=== PATIENT | female | born 1980 | race African-American/Black ===

== ENCOUNTER 2016-07-13 17:49 | Emergency (ER) | payer MEDICARE ==
[2016-02-05 00:27] VITALS: BMI 25.2
[~2016-07-13 17:49] MED LIST: ATIVAN0.5 MG PO; BENADRYL50 MG PO; CARAFATE1 G PO; CARAFATE1 G/10 ML NG; CELEXA20 MG PO; CELLCEPT500 MG PO; DDAVP 0.01% NASA5 ML NASAL; DEPAKOTE ER500 MG PO; DILANTIN100 MG PO; GLUCOPHAGE500 MG PO; HALDOL5 MG PO; HALDOL5 MG/ML IV; HUMALOG 30100 UNITS/ SC; HYDROCODON-ACE1 EAC7 PO; INSULINSYR&NEEDLES SC; IPRAT-ALBUT 0.5-3 ML IH; KEPPRA500 MG PO; LANTUS INSULIN10 ML SC; LOPRESSOR25 MG PO; LOVENOX40 MG/0.4 SC; MEDROL DOSE PACK4 MG PO; MUCINEX DM ER1 EAC1 PO; NORVASC5 MG PO; PERCOCET 10/3251 TA1 PO; PHENYTOIN100 MG/4 M PO; PREDNISONE20 MG PO; PREDNISONE50 MG PO; PROMETHAZINE W473 M1 PO; PROTONIX I40 MG/VIAL IV; PROTONIX40 MG PO; REGLAN5 MG PO; SEROQUEL100 MG PO; SEROQUEL200 MG PO; SEROQUEL50 MG PO; SOLU-MEDRO40 MG/1 M1 IV; SYNTHROID100 MCG PO; XANAX2 MG PO
[2016-07-13 18:49] LABS: BASOPHILS 0.3 % (0.0-2.0); EOSINOPHILS 1.5 % (0-7); HEMATOCRIT 35.4 % (36.0-48.0); HEMOGLOBIN 11.9 g/dL (12-16); IMMATURE GRANULOCYTES 0.1 % (0-5); LYMPHOCYTES 28.2 % (15-50); MCH 31.6 pg (26.0-34.0); MCHC 33.6 g/dL (31.0-37.0); MCV 94.1 fL (80.0-100.0); MEAN PLATELET VOLUME 10.2 fL (7.4-10.4); MONOCYTES 12.6 % (2-11); NEUTROPHILS 57.3 % (40-80); PLATELET COUNT 299 10x3/uL (130-400); RBC 3.76 10x6/uL (4.00-5.40); RDW 13.3 % (11.5-14.5); WBC 6.8 10x3/uL (4.8-10.8)
[2016-07-13 19:07] LABS: ALBUMIN 3.9 g/dL (3.4-5.0); ANION GAP 14.2 mmol/L (8-16); BILIRUBIN - TOTAL 0.37 mg/dL (0.2-1.3); CALCIUM 8.7 mg/dL (8.5-10.1); CARBON DIOXIDE 27.8 mmol/L (21.0-32.0); PROTEIN - SERUM 7.2 g/dL (6.4-8.2)
[2016-07-13 19:24] LABS: PHENYTOIN (DILANTIN) 1.3 ug/mL (10.0-20.0)
[2016-07-13 20:50] LABS: COLOR YELLOW (YELLOW)
[2016-07-13 20:51] LABS: APPEARANCE CLOUDY (CLEAR); BILIRUBIN NEGATIVE (NEGATIVE); GLUCOSE 50 mg/dL (NEGATIVE); KETONE NEGATIVE (NEGATIVE); LEUKOCYTE ESTERASE 1+ (NEGATIVE); NITRITE NEGATIVE (NEGATIVE); PROTEIN TRACE mg/dL (NEGATIVE); SPECIFIC GRAVITY 1.015 (1.005-1.020); UROBILINOGEN NORMAL (NORMAL)
[2016-07-13 20:52] LABS: UDS - AMPHET NEGATIVE QUAL (NEGATIVE); UDS - BARB NEGATIVE QUAL (NEGATIVE); UDS - BENZO NEGATIVE QUAL (NEGATIVE); UDS - COCAINE NEGATIVE QUAL (NEGATIVE); UDS - METH NEGATIVE QUAL (NEGATIVE); UDS - OPIATE POSITIVE QUAL (NEGATIVE); UDS - PCP NEGATIVE QUAL (NEGATIVE); UDS - THC NEGATIVE QUAL (NEGATIVE)
[2016-07-13 20:53] LABS: BACTERIA MODERATE /hpf (NONE SEEN); EPITHELIAL CELLS 0-5 /hpf (0-5); HYALINE CAST OCC /lpf (NONE SEEN); MUCUS <1+ /lpf (NONE SEEN); RED CELLS - URINE 0-5 /hpf (0-5)
== END 2016-07-13 21:30 | disposition home or self-care (01) ==
LOC: D.ER 17:49
PROVIDERS: Emergency Medicine; Nurse Practitioner Family
DX: R41.82 Altered mental status, unspecified (principal); E11.9 Type 2 diabetes mellitus without complications; N39.0 Urinary tract infection, site not specified; K21.9 Gastro-esophageal reflux disease without esophagitis; E87.6 Hypokalemia; F31.9 Bipolar disorder, unspecified

== ENCOUNTER 2016-07-16 18:14 | Emergency (ER) | payer MEDICARE ==
[2016-02-05 00:27] VITALS: BMI 25.2
[2016-07-16 19:33] LABS: BASOPHILS 0.3 % (0.0-2.0); EOSINOPHILS 0.8 % (0-7); HEMATOCRIT 36.5 % (36.0-48.0); HEMOGLOBIN 12.6 g/dL (12-16); IMMATURE GRANULOCYTES 0.3 % (0-5); LYMPHOCYTES 24.8 % (15-50); MCH 31.9 pg (26.0-34.0); MCHC 34.5 g/dL (31.0-37.0); MCV 92.4 fL (80.0-100.0); MEAN PLATELET VOLUME 9.8 fL (7.4-10.4); MONOCYTES 12.4 % (2-11); NEUTROPHILS 61.4 % (40-80); PLATELET COUNT 315 10x3/uL (130-400); RBC 3.95 10x6/uL (4.00-5.40); RDW 13.3 % (11.5-14.5); WBC 6.5 10x3/uL (4.8-10.8)
[2016-07-16 19:51] LABS: ALKALINE PHOSPHATASE 198 U/L (46-116); ALT (SGPT) 20 U/L (10-68); BILIRUBIN - TOTAL 0.52 mg/dL (0.2-1.3); CALC OSMOLALITY 265 mosm/kg (275-300); CALCIUM 8.8 mg/dL (8.5-10.1); CARBON DIOXIDE 29.4 mmol/L (21.0-32.0); CHLORIDE - SERUM 95 mmol/L (98-107); CREATININE - SERUM 0.9 mg/dL (0.6-1.3); GLUCOSE 111 mg/dL (74-106); PROTEIN - SERUM 7.6 g/dL (6.4-8.2); SODIUM 134 mmol/L (136-145); UREA NITROGEN 3 mg/dL (7-18); eGFR NON AFRICAN AMERICAN 76 mL/min (90-120)
[2016-07-16 20:10] LABS: POTASSIUM - SERUM 2.9 mmol/L (3.5-5.1)
== END 2016-07-16 22:25 | disposition home or self-care (01) ==
LOC: D.ER 18:14
PROVIDERS: Emergency Medicine
DX: K92.2 Gastrointestinal hemorrhage, unspecified (principal); F31.9 Bipolar disorder, unspecified; E11.9 Type 2 diabetes mellitus without complications; K21.9 Gastro-esophageal reflux disease without esophagitis; E87.6 Hypokalemia; F17.200 Nicotine dependence, unspecified, uncomplicated

== ENCOUNTER 2016-08-15 11:54 | Emergency (ER) | payer MEDICARE ==
[2016-02-05 00:27] VITALS: BMI 25.2
[2016-08-15 13:16] LABS: APPEARANCE HAZY (CLEAR); BILIRUBIN NEGATIVE (NEGATIVE); COLOR YELLOW (YELLOW); GLUCOSE NEGATIVE (NEGATIVE); KETONE NEGATIVE (NEGATIVE); LEUKOCYTE ESTERASE NEGATIVE (NEGATIVE); NITRITE NEGATIVE (NEGATIVE); PROTEIN NEGATIVE (NEGATIVE)
== END 2016-08-15 13:30 | disposition home or self-care (01) ==
LOC: D.ER 11:54
PROVIDERS: Emergency Medicine
DX: G89.29 Other chronic pain (principal); F31.9 Bipolar disorder, unspecified; E11.9 Type 2 diabetes mellitus without complications; E87.6 Hypokalemia

== ENCOUNTER 2016-08-18 22:34 | Emergency (ER) | payer MEDICARE ==
[2016-02-05 00:27] VITALS: BMI 25.2
[2016-08-18 23:06] LABS: BASOPHILS 0.2 % (0.0-2.0); EOSINOPHILS 3.9 % (0-7); HEMATOCRIT 44.4 % (36.0-48.0); HEMOGLOBIN 14.9 g/dL (12-16); IMMATURE GRANULOCYTES 0.2 % (0-5); LYMPHOCYTES 34.6 % (15-50); MCH 30.2 pg (26.0-34.0); MCHC 33.6 g/dL (31.0-37.0); MCV 90.1 fL (80.0-100.0); MEAN PLATELET VOLUME 10.4 fL (7.4-10.4); MONOCYTES 10.1 % (2-11); RBC 4.93 10x6/uL (4.00-5.40); RDW 12.6 % (11.5-14.5); WBC 4.6 10x3/uL (4.8-10.8)
[2016-08-18 23:07] LABS: PLATELET COUNT 213 10x3/uL (130-400)
[2016-08-18 23:32] LABS: ALBUMIN 3.2 g/dL (3.4-5.0); ANION GAP 15.4 mmol/L (8-16); BILIRUBIN - TOTAL 0.6 mg/dL (0.2-1.3); CALCIUM 9.1 mg/dL (8.5-10.1); CARBON DIOXIDE 23.6 mmol/L (21.0-32.0); PHENYTOIN (DILANTIN) 0.6 ug/mL (10.0-20.0); PROTEIN - SERUM 7.2 g/dL (6.4-8.2); VALPROIC ACID (DEPAKOTE) 18.6 ug/mL (50.0-100.0)
[2016-08-19 00:54] LABS: APPEARANCE HAZY (CLEAR); BILIRUBIN NEGATIVE (NEGATIVE); COLOR DK YELLOW (YELLOW); GLUCOSE NEGATIVE (NEGATIVE); KETONE NEGATIVE (NEGATIVE); LEUKOCYTE ESTERASE 1+ (NEGATIVE); NITRITE NEGATIVE (NEGATIVE); PROTEIN NEGATIVE (NEGATIVE)
[2016-08-19 01:01] LABS: UDS - AMPHET NEGATIVE QUAL (NEGATIVE); UDS - BARB NEGATIVE QUAL (NEGATIVE); UDS - BENZO NEGATIVE QUAL (NEGATIVE); UDS - COCAINE NEGATIVE QUAL (NEGATIVE); UDS - METH NEGATIVE QUAL (NEGATIVE); UDS - OPIATE POSITIVE QUAL (NEGATIVE); UDS - PCP NEGATIVE QUAL (NEGATIVE); UDS - THC NEGATIVE QUAL (NEGATIVE)
[2016-08-19 01:03] LABS: AMORPHOUS SEDIMENT <1+ /lpf (NONE SEEN); BACTERIA MODERATE /hpf (NONE SEEN); GRANULAR CAST OCC /lpf (NONE SEEN); HYALINE CAST 0-5 /lpf (NONE SEEN); MUCUS >1+ /lpf (NONE SEEN); RED CELLS - URINE 0-5 /hpf (0-5)
== END 2016-08-19 01:23 | disposition home or self-care (01) ==
LOC: D.ER 22:34
PROVIDERS: Family Medicine
DX: R10.9 Unspecified abdominal pain (principal); F31.9 Bipolar disorder, unspecified; E11.9 Type 2 diabetes mellitus without complications; E87.6 Hypokalemia

== ENCOUNTER 2016-08-21 18:16 | Emergency (ER) | payer MEDICARE ==
[2016-02-05 00:27] VITALS: BMI 25.2
[2016-08-21 21:41] LABS: BASOPHILS 0.4 % (0.0-2.0); EOSINOPHILS 3.4 % (0-7); HEMATOCRIT 42.3 % (36.0-48.0); HEMOGLOBIN 14.4 g/dL (12-16); IMMATURE GRANULOCYTES 0.2 % (0-5); MCH 30.8 pg (26.0-34.0); MCV 90.6 fL (80.0-100.0); MEAN PLATELET VOLUME 10.2 fL (7.4-10.4); MONOCYTES 12.5 % (2-11); NEUTROPHILS 54.5 % (40-80); RBC 4.67 10x6/uL (4.00-5.40); RDW 12.9 % (11.5-14.5); WBC 5.4 10x3/uL (4.8-10.8)
[2016-08-21 21:44] LABS: PLATELET COUNT 307 10x3/uL (130-400)
[2016-08-21 22:01] LABS: ALBUMIN 3.3 g/dL (3.4-5.0); ANION GAP 15.4 mmol/L (8-16); BILIRUBIN - TOTAL 0.53 mg/dL (0.2-1.3); CALCIUM 9.2 mg/dL (8.5-10.1); CARBON DIOXIDE 28.6 mmol/L (21.0-32.0); CREATININE - SERUM 1.3 mg/dL (0.6-1.3); PHENYTOIN (DILANTIN) 0.8 ug/mL (10.0-20.0); PROTEIN - SERUM 7.7 g/dL (6.4-8.2); VALPROIC ACID (DEPAKOTE) 93.2 ug/mL (50.0-100.0)
== END 2016-08-21 22:52 | disposition home or self-care (01) ==
LOC: D.ER 18:16
PROVIDERS: Physician Assistant
DX: R10.9 Unspecified abdominal pain (principal); R11.10 Vomiting, unspecified; E11.9 Type 2 diabetes mellitus without complications; E87.6 Hypokalemia; G89.29 Other chronic pain

== ENCOUNTER 2016-08-31 16:36 | Emergency (ER) | payer MEDICARE ==
[2016-02-05 00:27] VITALS: BMI 25.2
[2016-08-31 17:47] LABS: BASOPHILS 0.5 % (0-2); EOSINOPHILS 2.2 % (0-7); HEMATOCRIT 38.3 % (36.0-48.0); HEMOGLOBIN 13.1 g/dL (12-16); IMMATURE GRANULOCYTES 0.2 % (0-5); LYMPHOCYTES 33.6 % (15-50); MCHC 34.2 g/dL (31.0-37.0); MCV 87.6 fL (80.0-100.0); MEAN PLATELET VOLUME 10.3 fL (7.4-10.4); MONOCYTES 11.2 % (2-11); NEUTROPHILS 52.3 % (40-80); PLATELET COUNT 254 10x3/uL (130-400); RBC 4.37 10x6/uL (4.00-5.40); RDW 12.8 % (11.5-14.5); WBC 5.9 10x3/uL (4.8-10.8)
[2016-08-31 18:04] LABS: ALBUMIN 2.8 g/dL (3.4-5.0); ANION GAP 14.3 mmol/L (8-16); BILIRUBIN - TOTAL 0.41 mg/dL (0.2-1.3); CALCIUM 8.7 mg/dL (8.5-10.1); CARBON DIOXIDE 28.8 mmol/L (21.0-32.0); CREATININE - SERUM 1.7 mg/dL (0.6-1.3); POTASSIUM - SERUM 3.1 mmol/L (3.5-5.1); PROTEIN - SERUM 6.2 g/dL (6.4-8.2)
== END 2016-08-31 21:20 | disposition home or self-care (01) ==
LOC: D.ER 16:36
PROVIDERS: Nurse Practitioner Acute Care
DX: K59.00 Constipation, unspecified (principal); R11.10 Vomiting, unspecified; F31.9 Bipolar disorder, unspecified; E87.6 Hypokalemia; F17.200 Nicotine dependence, unspecified, uncomplicated

== ENCOUNTER 2016-09-09 13:39 | Emergency (ER) | payer MEDICARE ==
[2016-02-05 00:27] VITALS: BMI 25.2
[2016-09-09 14:27] LABS: EOSINOPHILS 1.9 % (0-7); HEMATOCRIT 38.9 % (36.0-48.0); HEMOGLOBIN 12.9 g/dL (12-16); IMMATURE GRANULOCYTES 0.3 % (0-5); LYMPHOCYTES 41.3 % (15-50); MCHC 33.2 g/dL (31.0-37.0); MCV 90.5 fL (80.0-100.0); MEAN PLATELET VOLUME 10.1 fL (7.4-10.4); MONOCYTES 9.4 % (2-11); NEUTROPHILS 46.1 % (40-80); RDW 13.7 % (11.5-14.5); WBC 6.7 10x3/uL (4.8-10.8)
[2016-09-09 14:29] LABS: PLATELET COUNT 387 10x3/uL (130-400)
[2016-09-09 14:42] LABS: APPEARANCE CLEAR (CLEAR); BILIRUBIN NEGATIVE (NEGATIVE); COLOR YELLOW (YELLOW); GLUCOSE NEGATIVE (NEGATIVE); KETONE NEGATIVE (NEGATIVE); LEUKOCYTE ESTERASE NEGATIVE (NEGATIVE); NITRITE NEGATIVE (NEGATIVE); PROTEIN NEGATIVE (NEGATIVE); UROBILINOGEN NORMAL (NORMAL)
[2016-09-09 14:46] LABS: ALBUMIN 2.9 g/dL (3.4-5.0); ALKALINE PHOSPHATASE 113 U/L (46-116); ALT (SGPT) 15 U/L (10-68); BILIRUBIN - TOTAL 0.23 mg/dL (0.2-1.3); CALC OSMOLALITY 279 mosm/kg (275-300); CALCIUM 8.9 mg/dL (8.5-10.1); CARBON DIOXIDE 23.8 mmol/L (21.0-32.0); CHLORIDE - SERUM 106 mmol/L (98-107); CREATININE - SERUM 1.1 mg/dL (0.6-1.3); GLUCOSE 74 mg/dL (74-106); MAGNESIUM - SERUM 2.1 mg/dL (1.8-2.4); POTASSIUM - SERUM 3.7 mmol/L (3.5-5.1); PROTEIN - SERUM 6.4 g/dL (6.4-8.2); SODIUM 142 mmol/L (136-145); UREA NITROGEN 8 mg/dL (7-18); eGFR NON AFRICAN AMERICAN 60 mL/min (90-120)
[2016-09-09 14:51] LABS: PHENYTOIN (DILANTIN) < 10.0 ug/mL (10.0-20.0)
[2016-09-09 14:57] LABS: UDS - AMPHET NEGATIVE QUAL (NEGATIVE); UDS - BARB NEGATIVE QUAL (NEGATIVE); UDS - BENZO NEGATIVE QUAL (NEGATIVE); UDS - COCAINE NEGATIVE QUAL (NEGATIVE); UDS - METH NEGATIVE QUAL (NEGATIVE); UDS - OPIATE NEGATIVE QUAL (NEGATIVE); UDS - PCP NEGATIVE QUAL (NEGATIVE); UDS - THC NEGATIVE QUAL (NEGATIVE)
== END 2016-09-09 18:42 | disposition home or self-care (01) ==
LOC: D.ER 13:39
PROVIDERS: Emergency Medicine
DX: F10.10 Alcohol abuse, uncomplicated (principal); F10.129 Alcohol abuse with intoxication, unspecified; F31.9 Bipolar disorder, unspecified; E87.6 Hypokalemia; E11.9 Type 2 diabetes mellitus without complications; Z79.4 Long term (current) use of insulin; F17.200 Nicotine dependence, unspecified, uncomplicated

== ENCOUNTER 2016-09-13 15:07 | Emergency (ER) | payer MEDICARE ==
[2016-02-05 00:27] VITALS: BMI 25.2
[2016-09-13 17:27] LABS: ANION GAP 13.8 mmol/L (8-16); BILIRUBIN - TOTAL 0.63 mg/dL (0.2-1.3); CARBON DIOXIDE 24.8 mmol/L (21.0-32.0); CREATININE - SERUM 1.1 mg/dL (0.6-1.3); MAGNESIUM - SERUM 1.6 mg/dL (1.8-2.4); POTASSIUM - SERUM 3.6 mmol/L (3.5-5.1); PROTEIN - SERUM 6.8 g/dL (6.4-8.2)
== END 2016-09-13 18:25 | disposition home or self-care (01) ==
LOC: D.ER 15:07
PROVIDERS: Nurse Practitioner Family
DX: S00.93XA Contusion of unspecified part of head, initial encounter (principal); W01.0XXA Fall on same level from slipping, tripping and stumbling without subsequent striking against object, initial encounter; Y93.89 Activity, other specified; Y92.89 Other specified places as the place of occurrence of the external cause; F10.10 Alcohol abuse, uncomplicated; F31.89 Other bipolar disorder; E11.9 Type 2 diabetes mellitus without complications; E87.6 Hypokalemia; F17.200 Nicotine dependence, unspecified, uncomplicated

== ENCOUNTER 2016-09-24 09:37 | Emergency (ER) | payer MEDICARE ==
[2016-02-05 00:27] VITALS: BMI 25.2
== END 2016-09-24 11:25 | disposition home or self-care (01) ==
LOC: D.ER 09:37
DX: M79.604 Pain in right leg (principal); F31.89 Other bipolar disorder; F10.10 Alcohol abuse, uncomplicated; E87.6 Hypokalemia; E11.9 Type 2 diabetes mellitus without complications; F17.200 Nicotine dependence, unspecified, uncomplicated

== ENCOUNTER 2016-09-26 01:43 | Emergency (ER) | payer MEDICARE ==
[2016-02-05 00:27] VITALS: BMI 25.2
[2016-09-26 02:13] LABS: APPEARANCE CLEAR (CLEAR); BILIRUBIN NEGATIVE (NEGATIVE); COLOR YELLOW (YELLOW); GLUCOSE NEGATIVE (NEGATIVE); KETONE NEGATIVE (NEGATIVE); LEUKOCYTE ESTERASE NEGATIVE (NEGATIVE); NITRITE NEGATIVE (NEGATIVE); PROTEIN NEGATIVE (NEGATIVE); UROBILINOGEN NORMAL (NORMAL)
[2016-09-26 02:21] LABS: UDS - AMPHET NEGATIVE QUAL (NEGATIVE); UDS - BARB NEGATIVE QUAL (NEGATIVE); UDS - BENZO NEGATIVE QUAL (NEGATIVE); UDS - COCAINE NEGATIVE QUAL (NEGATIVE); UDS - METH NEGATIVE QUAL (NEGATIVE); UDS - OPIATE NEGATIVE QUAL (NEGATIVE); UDS - PCP NEGATIVE QUAL (NEGATIVE); UDS - THC NEGATIVE QUAL (NEGATIVE)
[2016-09-26 05:13] LABS: BASOPHILS 0.1 % (0-2); EOSINOPHILS 0.4 % (0-7); HEMATOCRIT 37.8 % (36.0-48.0); HEMOGLOBIN 12.8 g/dL (12-16); IMMATURE GRANULOCYTES 0.7 % (0-5); LYMPHOCYTES 16.2 % (15-50); MCH 29.4 pg (26.0-34.0); MCHC 33.9 g/dL (31.0-37.0); MCV 86.9 fL (80.0-100.0); MEAN PLATELET VOLUME 10.8 fL (7.4-10.4); MONOCYTES 5.8 % (2-11); NEUTROPHILS 76.8 % (40-80); PLATELET COUNT 271 10x3/uL (130-400); RBC 4.35 10x6/uL (4.00-5.40); RDW 13.9 % (11.5-14.5); WBC 13.5 10x3/uL (4.8-10.8)
[2016-09-26 05:28] LABS: ALBUMIN 3.5 g/dL (3.4-5.0); ANION GAP 17.9 mmol/L (8-16); BILIRUBIN - TOTAL 0.48 mg/dL (0.2-1.3); CALCIUM 8.7 mg/dL (8.5-10.1); CARBON DIOXIDE 22.7 mmol/L (21.0-32.0); CREATININE - SERUM 1.5 mg/dL (0.6-1.3); PROTEIN - SERUM 7.8 g/dL (6.4-8.2)
[2016-09-26 05:29] LABS: POTASSIUM - SERUM 3.6 mmol/L (3.5-5.1)
== END 2016-09-26 10:27 | disposition other institution, planned readmission (95) ==
LOC: D.ER 01:43
PROVIDERS: Emergency Medicine
DX: R45.851 Suicidal ideations (principal); F31.89 Other bipolar disorder; E87.6 Hypokalemia; F17.200 Nicotine dependence, unspecified, uncomplicated

== ENCOUNTER 2016-11-07 09:17 | Emergency (ER) | payer MEDICARE ==
[2016-02-05 00:27] VITALS: BMI 25.2
[2016-11-07 10:06] LABS: APPEARANCE CLEAR (CLEAR); BILIRUBIN NEGATIVE (NEGATIVE); COLOR YELLOW (YELLOW); GLUCOSE NEGATIVE (NEGATIVE); KETONE NEGATIVE (NEGATIVE); LEUKOCYTE ESTERASE NEGATIVE (NEGATIVE); NITRITE NEGATIVE (NEGATIVE); PROTEIN NEGATIVE (NEGATIVE); SPECIFIC GRAVITY 1.005 (1.005-1.020); UROBILINOGEN NORMAL (NORMAL)
[2016-11-07 10:13] LABS: UDS - AMPHET NEGATIVE QUAL (NEGATIVE); UDS - BARB NEGATIVE QUAL (NEGATIVE); UDS - BENZO POSITIVE QUAL (NEGATIVE); UDS - COCAINE NEGATIVE QUAL (NEGATIVE); UDS - METH NEGATIVE QUAL (NEGATIVE); UDS - OPIATE NEGATIVE QUAL (NEGATIVE); UDS - PCP NEGATIVE QUAL (NEGATIVE); UDS - THC NEGATIVE QUAL (NEGATIVE)
[2016-11-07 13:07] LABS: BASOPHILS 0.1 % (0-2); EOSINOPHILS 0.1 % (0-7); HEMATOCRIT 34.3 % (36.0-48.0); HEMOGLOBIN 11.1 g/dL (12-16); IMMATURE GRANULOCYTES 1.3 % (0-5); MCHC 32.4 g/dL (31.0-37.0); MCV 92.7 fL (80.0-100.0); MEAN PLATELET VOLUME 10.5 fL (7.4-10.4); MONOCYTES 2.1 % (2-11); NEUTROPHILS 85.4 % (40-80); PLATELET COUNT 245 10x3/uL (130-400); RDW 17.7 % (11.5-14.5)
[2016-11-07 13:22] LABS: HCG SERUM NEGATIVE (NEGATIVE)
[2016-11-07 13:26] LABS: ALBUMIN 3.7 g/dL (3.4-5.0); ALKALINE PHOSPHATASE 115 U/L (46-116); ALT (SGPT) 67 U/L (10-68); BILIRUBIN - TOTAL 0.22 mg/dL (0.2-1.3); CALC OSMOLALITY 276 mosm/kg (275-300); CALCIUM 8.8 mg/dL (8.5-10.1); CARBON DIOXIDE 24.1 mmol/L (21.0-32.0); CHLORIDE - SERUM 102 mmol/L (98-107); CREATININE - SERUM 0.9 mg/dL (0.6-1.3); GLUCOSE 118 mg/dL (74-106); POTASSIUM - SERUM 4.5 mmol/L (3.5-5.1); PROTEIN - SERUM 7.7 g/dL (6.4-8.2); SODIUM 137 mmol/L (136-145); UREA NITROGEN 19 mg/dL (7-18); eGFR NON AFRICAN AMERICAN 76 mL/min (90-120)
== END 2016-11-07 16:58 | disposition home or self-care (01) ==
LOC: D.ER 09:17
PROVIDERS: Emergency Medicine
DX: R45.851 Suicidal ideations (principal); F33.9 Major depressive disorder, recurrent, unspecified; D86.9 Sarcoidosis, unspecified; E87.6 Hypokalemia

== ENCOUNTER 2016-11-13 09:58 | Emergency (ER) | payer MEDICARE ==
[2016-02-05 00:27] VITALS: BMI 25.2
[2016-11-13 11:46] LABS: BASOPHILS 0 % (0-2); EOSINOPHILS 0.5 % (0-7); HEMATOCRIT 34.6 % (36.0-48.0); HEMOGLOBIN 11.4 g/dL (12-16); IMMATURE GRANULOCYTES 0.9 % (0-5); MCH 30.2 pg (26.0-34.0); MCHC 32.9 g/dL (31.0-37.0); MCV 91.5 fL (80.0-100.0); MEAN PLATELET VOLUME 10.1 fL (7.4-10.4); MONOCYTES 5.9 % (2-11); NEUTROPHILS 74.7 % (40-80); PLATELET COUNT 231 10x3/uL (130-400); RBC 3.78 10x6/uL (4.00-5.40); RDW 17.1 % (11.5-14.5); WBC 8.7 10x3/uL (4.8-10.8)
[2016-11-13 12:09] LABS: ALBUMIN 3.5 g/dL (3.4-5.0); ALKALINE PHOSPHATASE 146 U/L (46-116); ALT (SGPT) 36 U/L (10-68); BILIRUBIN - TOTAL 0.21 mg/dL (0.2-1.3); CALC OSMOLALITY 267 mosm/kg (275-300); CALCIUM 8.4 mg/dL (8.5-10.1); CARBON DIOXIDE 26.4 mmol/L (21.0-32.0); CHLORIDE - SERUM 100 mmol/L (98-107); CREATININE - SERUM 0.8 mg/dL (0.6-1.3); GLUCOSE 96 mg/dL (74-106); POTASSIUM - SERUM 4.7 mmol/L (3.5-5.1); PROTEIN - SERUM 7.2 g/dL (6.4-8.2); SODIUM 135 mmol/L (136-145); UREA NITROGEN 6 mg/dL (7-18); eGFR NON AFRICAN AMERICAN 87 mL/min (90-120)
[2016-11-13 12:19] LABS: T4 THYROXIN - FREE 0.33 ng/dL (0.76-1.46); THYROID STIMULATING HORMONE 0.44 uIU/mL (0.36-3.74)
[2016-11-13 13:18] LABS: ERYTHROCYTE SEDIMENTATION RATE 23 mm/hr (0-20)
== END 2016-11-13 14:11 | disposition home or self-care (01) ==
LOC: D.ER 09:58
PROVIDERS: Physician Assistant
DX: H53.9 Unspecified visual disturbance (principal); D86.9 Sarcoidosis, unspecified; E11.9 Type 2 diabetes mellitus without complications; G40.909 Epilepsy, unspecified, not intractable, without status epilepticus; F31.89 Other bipolar disorder; F17.200 Nicotine dependence, unspecified, uncomplicated

== ENCOUNTER 2016-11-29 09:03 | Inpatient (IN) | payer MEDICARE ==
[~2016-11-29] VITALS: Ht 172.7 cm; Wt 86.6 kg
[2016-11-29 10:04] LABS: BASOPHILS 0.3 % (0-2); EOSINOPHILS 1.5 % (0-7); HEMATOCRIT 34.5 % (36.0-48.0); HEMOGLOBIN 12.6 g/dL (12-16); IMMATURE GRANULOCYTES 0.5 % (0-5); LYMPHOCYTES 25.5 % (15-50); MCH 30.7 pg (26.0-34.0); MCHC 36.5 g/dL (31.0-37.0); MCV 83.9 fL (80.0-100.0); MEAN PLATELET VOLUME 9.1 fL (7.4-10.4); MONOCYTES 9.2 % (2-11); PLATELET COUNT 343 10x3/uL (130-400); RBC 4.11 10x6/uL (4.00-5.40); RDW 14.5 % (11.5-14.5); WBC 6.1 10x3/uL (4.8-10.8)
[2016-11-29 10:27] LABS: ALKALINE PHOSPHATASE 184 U/L (46-116); ALT (SGPT) 17 U/L (10-68); CALCIUM 9.1 mg/dL (8.5-10.1); CARBON DIOXIDE 27.1 mmol/L (21.0-32.0); CREATININE - SERUM 0.8 mg/dL (0.6-1.3); GLUCOSE 141 mg/dL (74-106); MAGNESIUM - SERUM 1.7 mg/dL (1.8-2.4); PHENYTOIN (DILANTIN) 8.6 ug/mL (10.0-20.0); PROTEIN - SERUM 7.9 g/dL (6.4-8.2); THYROID STIMULATING HORMONE 1.06 uIU/mL (0.36-3.74); UREA NITROGEN 1 mg/dL (7-18); eGFR NON AFRICAN AMERICAN 87 mL/min (90-120)
[2016-11-29 10:29] LABS: CALC OSMOLALITY 237 mosm/kg (275-300); CHLORIDE - SERUM 84 mmol/L (98-107); POTASSIUM - SERUM 2.4 mmol/L (3.5-5.1); SODIUM 119 mmol/L (136-145)
[2016-11-29 10:43] LABS: APPEARANCE HAZY (CLEAR); BACTERIA FEW /hpf (NONE SEEN); BILIRUBIN NEGATIVE (NEGATIVE); COLOR YELLOW (YELLOW); EPITHELIAL CELLS 0-5 /hpf (0-5); GLUCOSE NEGATIVE (NEGATIVE); KETONE NEGATIVE (NEGATIVE); LEUKOCYTE ESTERASE 1+ (NEGATIVE); NITRITE NEGATIVE (NEGATIVE); PROTEIN NEGATIVE (NEGATIVE); RED CELLS - URINE NONE SEEN /hpf (0-5); SPECIFIC GRAVITY 1.015 (1.005-1.020); UROBILINOGEN NORMAL (NORMAL)
[2016-11-29 10:44] LABS: UDS - AMPHET NEGATIVE QUAL (NEGATIVE); UDS - BARB NEGATIVE QUAL (NEGATIVE); UDS - BENZO NEGATIVE QUAL (NEGATIVE); UDS - COCAINE NEGATIVE QUAL (NEGATIVE); UDS - METH NEGATIVE QUAL (NEGATIVE); UDS - OPIATE NEGATIVE QUAL (NEGATIVE); UDS - PCP NEGATIVE QUAL (NEGATIVE); UDS - THC NEGATIVE QUAL (NEGATIVE)
--- NOTE | 2016-11-29 12:00 | NUR ---
RECEIVED CALL FROM ED THAT PATIENTS IV BLEW AND THEY ARE TRYING TO GET A LINE IN HER BEFORE SHE IS BROUGHT TO THE FLOOR.
--- NOTE | 2016-11-29 15:15 | NUR ---
RECIEVED PATIENT FROM ED VIA WHEELCHAIR AT 1510. PATIENT ALERT/ORIENTED. ABLE TO AMBULATE TO BED AND REPOSITION HERSELF. PATIENT ABLE TO GIVE NARRATIVE OF WHAT BROUGHT HER TO THE ED TODAY. PATIENT HAD CENTRAL LINE PLACED TO LEFT SUBCLAVIAN IN ED DUE TO POOR PERIPHERAL ACCESS. 119/74, 98.1, 90, 16, 99% ON ROOM AIR. 5'7, 188LBS. RESP EVEN AND UNLABORED. NO DISTRESS.
[2016-11-29] MEDS ORDERED: RESTORIL15 MG PO (15:24)
[2016-11-29] MEDS ORDERED: BUSPAR5 MG PO (15:25)
[2016-11-29] MEDS ORDERED: PHENYTEK200 MG PO (15:27)
[2016-11-29] MEDS ORDERED: GLUCOPHAGE500 MG PO (16:19)
[2016-11-29] MEDS ORDERED: NEURONTIN 300300 MG PO (16:20)
--- NOTE | 2016-11-29 16:25 | NUR ---
FSBS 178. PATIENT REFUSED INSULIN. PATIENT STATES SHE DOES NOT TAKE INSULIN AT HOME AND WANTS TO WAIT AND SEE HOW HER GLUCOSE RESULTS TONIGHT BEFORE SHE AGREES TO TAKE ANY INSULIN.
--- NOTE | 2016-11-29 17:12 | NUR ---
MEDICATED FOR PAIN AT THIS TIME.
--- NOTE | 2016-11-29 17:19 | NUR ---
XRAY CONFIRMED PLACEMENT OF CVL LINE. IV FLUIDS INFUSING ORDERED AT THIS TIME. UA COLLECTED AT THIS TIME.
[2016-11-29 17:50] VITALS: BP 119/74; BMI 28.7
--- NOTE | 2016-11-29 18:13 | NUR ---
BED ALARM APPLIED TO FULL BED AT THIS TIME. NO DISTRESS. PATIENT STATED IT WAS OKAY TO PUT BED ALARM ON AND DECLINED WAIVER TO REFUSE ALARM. ALARM PATENT AT THIS TIME.
--- NOTE | 2016-11-29 18:32 | NUR ---
PATIENT DID NOT CALL FOR HELP AND SET THE BED ALARM OFF TRYING TO GET UP UNASSISTED TO USE THE RESTROOM. PATIENT ASSISTED TO RESTROOM AND BED ALARM RESET AT THIS TIME.
--- NOTE | 2016-11-29 19:26 | NUR ---
RECEIVED REPORT, WILL ASSUME CARE OF PT, PT LAYING IN BED WATCHING TV, DENIES ANY NEEDS AT THIS TIME, BED IS LOW, SRX2, CALL LIGHT IN REACH, WILL CONTINUE PLAN OF CARE
[2016-11-29 20:00] VITALS: BP 121/82
--- NOTE | 2016-11-29 21:37 | NUR ---
BLOODSUGAR 102, NO COVERAGE NEEDED AT THIS TIME
[2016-11-30] VITALS: BP 90/51
--- NOTE | 2016-11-30 01:31 | NUR ---
ASSESSMENT COMPLETE, SEE FLOW SHEET, PT SLEEPING, BED IS LOW, SRX2, BED ALARM IS ON, CALL LIGHT IN REACH, WILL CONTINUE TO MONITOR
[2016-11-30 04:00] VITALS: BP 132/78
[2016-11-30 06:49] LABS: BASOPHILS 0.2 % (0-2); EOSINOPHILS 1.7 % (0-7); HEMATOCRIT 32.4 % (36.0-48.0); HEMOGLOBIN 11.5 g/dL (12-16); IMMATURE GRANULOCYTES 0.4 % (0-5); LYMPHOCYTES 21.5 % (15-50); MCH 30.1 pg (26.0-34.0); MCHC 35.5 g/dL (31.0-37.0); MCV 84.8 fL (80.0-100.0); MEAN PLATELET VOLUME 9.3 fL (7.4-10.4); MONOCYTES 8.1 % (2-11); NEUTROPHILS 68.1 % (40-80); PLATELET COUNT 316 10x3/uL (130-400); RBC 3.82 10x6/uL (4.00-5.40); RDW 14.5 % (11.5-14.5); WBC 5.3 10x3/uL (4.8-10.8)
[2016-11-30 07:03] LABS: CALCIUM 8.5 mg/dL (8.5-10.1); CARBON DIOXIDE 28.5 mmol/L (21.0-32.0); CHLORIDE - SERUM 91 mmol/L (98-107); CREATININE - SERUM 0.8 mg/dL (0.6-1.3); GLUCOSE 118 mg/dL (74-106); SODIUM 126 mmol/L (136-145); eGFR NON AFRICAN AMERICAN 87 mL/min (90-120)
[2016-11-30 07:04] LABS: CALC OSMOLALITY 249 mosm/kg (275-300); UREA NITROGEN 0 mg/dL (7-18)
[2016-11-30 07:05] LABS: POTASSIUM - SERUM 2.9 mmol/L (3.5-5.1)
[2016-11-30 07:47] VITALS: BP 108/56
--- NOTE | 2016-11-30 08:13 | NUR ---
0800 ELECTROLYTE PROTOCOL FOLLOWED. K+ 2.9, 20 MEQ OF LIQUID POTASSIUM ADMINISTERED IN ORANGE JUICE AT THIS TIME. TOLERATED WELL. ALSO MEDICATED FOR PAIN. PATIENT STATES HER WHOLE ENTIRE BODY IS HURTING. NO DISTRESS.
--- NOTE | 2016-11-30 09:50 | NUR ---
K+ SUPPLEMENT #2 ADMINISTERED AT THIS TIME. NO DISTRESS.
--- NOTE | 2016-11-30 10:54 | NUR ---
PATIENTS MOTHER CALLED AND STATED THAT HER DAUGHTER CALLED HER AND TOLD HER THAT SHE HAS A ROOMMATE. ROOMMATES NAME IS RUSTAM. INFORMED PATIENTS MOTHER THAT PATIENT DOES NOT HAVE A ROOMMATE AND THAT SHE DOES HAVE A VISITOR AT BEDSIDE. PATIENT MOTHER STATED THAT THIS GIRL AT BEDSIDE, HER NAME IN RUSTAM, AND SHE SLIPS PAIN PILLS INTO THE HOSPITAL FOR HER DAUGHTER AND SHE WOULD HER TO LEAVE. PATIENTS FRIEND RUSTAM LEFT PER MOTHERS REQUEST. NO FURTHER ISSUES. MOTHER STATES SHE IS ON HER WAY UP THERE RIGHT NOW.
--- NOTE | 2016-11-30 11:18 | NUR ---
FSBS 130. NO INSULIN PER SLIDING SCALE.
[2016-11-30 11:41] VITALS: BP 122/88
--- NOTE | 2016-11-30 12:26 | NUR ---
MEDICATED FOR PAIN AT THIS TIME. NO DISTRESS.
--- NOTE | 2016-11-30 13:16 | NUR ---
CENTRAL LINE DRESSING CHANGED AT THIS TIME DUE TO PATIENT PULLED HERS OFF. PATIENT REDIRECTED TO NOT PULL DRESSINGS OFF. VERY DIFFICULT TO COMMUNICATE WITH PATIENT. PATIENT UNABLE TO CONCENTRATE ON CONVERSATION. CALL LIGHT WITHIN REACH. FLUIDS INFUSING ORDERED. SITTING IN BED AT THIS TIME. NO DISTRESS.
--- NOTE | 2016-11-30 14:11 | NUR ---
BED ALARMING, SOUNDING EVERY 15 MINUTES FOR PAST HOUR. PATIENT NOW ASKING HOW TO TURN THE TELEVISION ON WHILE WATCHING IT. PATIENT IS ORIENTED TO PERSON, PLACE, AND TIME HOWEVER HER CONCENTRATION AND THOUGHT PROCESS ARE ALTERED. CONTINUED TO TRY AND ASSIST PATIENT AT WHAT SHE IS WANTING.
[2016-11-30 16:12] VITALS: BP 109/83
--- NOTE | 2016-11-30 16:35 | NUR ---
PATIENT CONTINUES TO SET BED ALARM OFF. PATIENT IS REQUESTING TO GET OOB AND URINATE EVERY 15 MINUTES. PATIENT IS URINATING. IV FLUIDS INFUSING ORDERED. PATIENT CONTINUES TO HAVE EXPRESSIVE APHASIA. NO FAMILY OR FRIENDS AT BEDSIDE.
--- NOTE | 2016-11-30 18:41 | NUR ---
MEDICATED FOR PAIN AND ANXIETY AT THIS TIME. PATIENT HAS DISCONNECTED HERSELF FROM HER CVL AGAIN AND LET THE FLUIDS RUN ALL OVER THE FLOOR. PATIENT STATES 2 LITTLE BOYS CAME IN AND DICONNECTED HER FROM HER IV FLUIDS. NEW TUBING HUNG AT THIS TIME. IV FLUIDS INFUSING ORDERED. NO DISTERSS.
[2016-11-30 19:00] VITALS: BP 113/80
--- NOTE | 2016-11-30 19:30 | NUR ---
RECEIVED REPORT, WILL ASSUME CARE OF PT, PT SITTING UP ON SIDE OF BED, DENIES ANY NEEDS AT THIS TIME, BED IS LOW, SRX2, CALL LIGHT IN REACH, WILL CONTINUE PLAN OF CARE
--- NOTE | 2016-11-30 23:12 | NUR ---
WALKED IN ROOM, PT WAS ON BEDSIDE COMMODE, HAD BROKE IV IN HALF, BLOOD WAS ALL OVER,SHE SAID SOMEONE ELSE HAD DID IT, SL IV SO HOPEFULLY WOULDNT PULL OUT CENTRAL LINE
--- NOTE | 2016-12-01 01:05 | NUR ---
CALL LIGHT IN REACH, WILL CONTINUE WITH PLAN OF CARE.
[2016-12-01 04:00] VITALS: BP 105/69
--- NOTE | 2016-12-01 04:16 | NUR ---
ASSESSMENT COMPLETE, SEE FLOWSHEET, BED IS LOW, SRX2, BED ALARM IS ON, CALL LIGHT IN REACH, WILL CONTINUE TO MONITOR
--- NOTE | 2016-12-01 07:34 | NUR ---
AM ROUNDS - PT APPEARS TO BE SLEEPING WITH EQUAL AND NON LABORED BREATHING. MONITOR SHOWING SR, HR 89. LEFT SUBCLAV TRIPLE LUMEN. ORDER FOR NS WITH 20K+ AT 75CC/HR. NIGHT NURSE HAS SL PT DO TO PT REFUSING FLUIDS. BED ALARM IS ON. PT IS ON 1000CC FLUID RESTRICTION. WILL CONTINUE TO MONITOR
[2016-12-01 08:00] VITALS: BP 102/49
--- NOTE | 2016-12-01 11:40 | NUR ---
WALKED INTO PT ROOM TO CHECK BLOOD SUGAR. PT IS IN BED AND CHEWING ON TOILET PAPER AND SPITTING IT OUT THEN PLACING ANOTHER PIECE OF TOILET PAPER IN HER MOUTH. WHEN ASKED WHY SHE IS CHEWING ON THE TOILET PAPER, SHE RESPONDED WITH "I DONT KNOW, ITS SOMETHING IN MY BODY. I DONT SWALLOW IT" PT ALSO STATES THAT HER FAMILY IS "CHEATING ON HER". WHEN ASKE WHAT DOES SHE MEAN BY THAT STATEMENT, SHE REPLIED THAT HER COUSIN CAME TO VISIT A MEW MIN AGO AND ASKED HER FOR SOME OF HER TOILET PAPER TO CHEW ON. LEFT THE ROOM AND CAME BACK ABOUT 2 MINUTES LATER AND ASKED HER IF HER COUSING HAD COME TO VISIT AND SHE REPLIED, "WHO ME", WHILE LOOKING CONFUSSED AND LOOKING AROUND THE ROOM AND ADDED "NO, NOT ME. I JUST WOKE UP". WILL CONTINUE TO MONITOR
[2016-12-01 12:40] LABS: BASOPHILS 0.4 % (0-2); EOSINOPHILS 2.1 % (0-7); HEMATOCRIT 31.9 % (36.0-48.0); HEMOGLOBIN 11.1 g/dL (12-16); IMMATURE GRANULOCYTES 0.4 % (0-5); LYMPHOCYTES 28.7 % (15-50); MCH 30.4 pg (26.0-34.0); MCHC 34.8 g/dL (31.0-37.0); MEAN PLATELET VOLUME 9.2 fL (7.4-10.4); MONOCYTES 7.1 % (2-11); NEUTROPHILS 61.3 % (40-80); PLATELET COUNT 306 10x3/uL (130-400); RBC 3.65 10x6/uL (4.00-5.40); RDW 14.9 % (11.5-14.5); WBC 4.8 10x3/uL (4.8-10.8)
[2016-12-01 12:41] LABS: MCV 87.4 fL (80.0-100.0)
[2016-12-01 12:52] LABS: CALC OSMOLALITY 264 mosm/kg (275-300); CALCIUM 8.8 mg/dL (8.5-10.1); CARBON DIOXIDE 25.9 mmol/L (21.0-32.0); CHLORIDE - SERUM 100 mmol/L (98-107); CREATININE - SERUM 0.7 mg/dL (0.6-1.3); GLUCOSE 86 mg/dL (74-106); POTASSIUM - SERUM 3.9 mmol/L (3.5-5.1); SODIUM 135 mmol/L (136-145); eGFR NON AFRICAN AMERICAN > 90 mL/min (90-120)
[2016-12-01 12:53] LABS: UREA NITROGEN 2 mg/dL (7-18)
[2016-12-01 14:10] VITALS: Ht 172.7 cm; Wt 86.6 kg
--- NOTE | 2016-12-01 19:15 | NUR ---
CENTRAL LINE REMOVED BY NATALYA RIVAS 2X2 DRESSING APPLIED AND SECURED WITH OPSITE. PT INSTRUCTED TO LAY FLAT FOR 10 MINUTES REASSESSED CENTRAL LINE OPSITE NO DRAINAGE OR BLOOD PT LEFT FLOOR VIA WHEEL CHAIR BY GUN WELDER ACCOMPANIED BY FAMILY MEMBERS WILL DISCHARGE
--- NOTE | 2016-12-05 14:51 | CN ---
PATIENT NAME:DWIGHT VILLEGAS MEDICAL RECORD: [id number] : 84 LOCATION:D. D.2112 ADMIT DATE: 11/29/16 ACCOUNT: [id number] CONSULTING PHYSICIAN: CHARLES DARLING MD REFERRING PHYSICIAN: LAUREN CANELA MD DATE OF CONSULTATION: 11/29/2016 Surgical Consultation CHIEF COMPLAINT: Pain. HISTORY OF PRESENT ILLNESS: Ms. Villegas is a 36-year-old -Guyanese female who presented to the ER with facial pain. The patient has a history of neurosarcoidosis, diabetes mellitus and seizure disorder. She is a very hard stick and we were consulted for placement of a central venous line. The patient has some personality disorders including bipolar disorder, depression and anxiety. Reportedly, the patient is very noncompliant with treatment. PAST MEDICAL HISTORY: 1. Neurosarcoidosis. 2. Diabetes mellitus. 3. Hypothyroidism. 4. Seizure disorder. 5. Bipolar disorder. 6. Depression. 7. Anxiety. PAST SURGICAL HISTORY: Hysterectomy. ALLERGIES: XANAX, ASPIRIN, IBUPROFEN AND LITHIUM. MEDICATIONS: Benadryl, Synthroid, Percocet, metformin, Neurontin, phenytoin, BuSpar and Restoril. SOCIAL HISTORY: She reports using alcohol and prescription drugs. FAMILY HISTORY: Noncontributory. REVIEW OF SYSTEMS: GENERAL: No fevers, chills, weight gain or weight loss. PULMONARY: No cough or wheezing. GASTROINTESTINAL: No nausea, vomiting, diarrhea or constipation. CARDIOVASCULAR: No chest pain or shortness of breath. HEMATOLOGIC: No known bleeding disorders. NEUROLOGIC: No headaches or numbness, but she does have a history of seizures. PSYCHIATRIC: She does have depression and anxiety. PHYSICAL EXAMINATION: VITAL SIGNS: Afebrile. Vital signs are stable. GENERAL: She is an obese female in no apparent distress. HEENT: Sclerae is nonicteric. HEART: Regular rate and rhythm. LUNGS: Clear. ABDOMEN: Soft, nondistended. EXTREMITIES: No clubbing, cyanosis or edema. CONSULT REPORT [id number] DWIGHT VILLEGAS NEUROLOGICAL: Grossly intact. ASSESSMENT AND PLAN: This is a patient with multiple medical issues, needing IV access for hospitalization. Place central venous line at the bedside in the ER. TRANSINT:[id number] Voice Confirmation ID: [id number] DOCUMENT ID: [id number] CHARLES DARLING MD at 1451 CC: [id number] DICTATION DATE: 12/02/16 0804 CAR INSTALLATIONS SUPERVISOR: 12/02/16 0934 DIS IN 12/01/16 [address] [place] [address]
--- NOTE | 2016-12-05 14:51 | OP ---
PATIENT NAME: DWIGHT FRANCO MEDICAL RECORD: [id number] :82 LOCATION:D.M2 D.2112 ADMISSION DATE:11/29/16 SURGEON: CHARLES DARLING MD DATE OF OPERATION: 11/29/2016 PREOPERATIVE DIAGNOSES: 1. Need for IV access. 2. Neurosarcoidosis. 3. Schizophrenia. 4. Hyperlipidemia. 5. Diabetes mellitus. 6. Hypothyroidism. 7. Seizure disorder. 8. Hyponatremia. 9. Hypokalemia. POSTOPERATIVE DIAGNOSES: 1. Need for IV access. 2. Neurosarcoidosis. 3. Schizophrenia. 4. Hyperlipidemia. 5. Diabetes mellitus. 6. Hypothyroidism. 7. Seizure disorder. 8. Hyponatremia. 9. Hypokalemia. PROCEDURE: Left subclavian vein triple-lumen central venous line placement. SURGEON: Charles Darling MD. REPORT OF PROCEDURE: The patient's left chest was prepped and draped in sterile fashion. A total of 15 mL of 1% lidocaine with epinephrine was infused into the surrounding tissues. A needle was then used to cannulate the left subclavian vein and a guidewire was advanced with ease. Over this wire, a dilator was placed followed by the triple lumen catheter. The catheter aspirated nonpulsatile dark blood and flushed easily in all 3 ports with normal saline. This was sutured into place with 3-0 silk ties and dressed appropriately. COMPLICATIONS: None. CONDITION: Stable. ANESTHESIA: Local. BLOOD LOSS: Minimal. Procedure done at the bedside. TRANSINT:[id number] Voice Confirmation ID: [id number] DOCUMENT ID: [id number] OPERATIVE REPORT [id number] URIELDWIGHT GARCIA CHARLES HUA MD at 1451 CC: [id number] DICTATION DATE: 12/02/16 0759 PRESSURE CONTROL SUPERVISOR: 12/02/16 0948 DIS IN 12/01/16 [place] [id number] [place] [id number]
== END 2016-12-01 19:17 | disposition home or self-care (01) | DRG 197 ==
LOC: D.ER 09:03 → D.M2 11:14
PROVIDERS: Emergency Medicine; ADMIT Family Medicine
PROC: 02HV33Z Insertion of Infusion Device into Superior Vena Cava, Percutaneous Approach (ICD-10-PCS; principal; 2016-11-29)
DX: D86.89 Sarcoidosis of other sites (principal); E87.1 Hypo-osmolality and hyponatremia; E87.6 Hypokalemia; E78.5 Hyperlipidemia, unspecified; E11.9 Type 2 diabetes mellitus without complications; E03.9 Hypothyroidism, unspecified; F41.9 Anxiety disorder, unspecified; Z91.19 Patient's noncompliance with other medical treatment and regimen; D50.9 Iron deficiency anemia, unspecified; G89.4 Chronic pain syndrome; G40.909 Epilepsy, unspecified, not intractable, without status epilepticus; F20.9 Schizophrenia, unspecified; R19.7 Diarrhea, unspecified

== ENCOUNTER 2016-12-13 16:56 | Emergency (ER) | payer MEDICARE ==
[2016-12-01 14:10] VITALS: BMI 29.0
[~2016-12-13 16:56] MED LIST changes: +BUSPAR5 MG PO; +NEURONTIN 300300 MG PO; +PHENYTEK200 MG PO; +RESTORIL15 MG PO
== END 2016-12-13 20:10 | disposition home or self-care (01) ==
LOC: D.ER 16:56
DX: G40.909 Epilepsy, unspecified, not intractable, without status epilepticus (principal); F31.89 Other bipolar disorder; E11.9 Type 2 diabetes mellitus without complications; R53.1 Weakness; F41.9 Anxiety disorder, unspecified; R45.1 Restlessness and agitation

== ENCOUNTER 2016-12-30 14:33 | Emergency (ER) | payer MEDICARE ==
[2016-12-01 14:10] VITALS: BMI 29.0
[2016-12-30 19:26] LABS: BASOPHILS 0.3 % (0-2); EOSINOPHILS 1.2 % (0-7); HEMATOCRIT 34.8 % (36.0-48.0); HEMOGLOBIN 11.5 g/dL (12-16); IMMATURE GRANULOCYTES 0.2 % (0-5); LYMPHOCYTES 26.4 % (15-50); MCH 29.9 pg (26.0-34.0); MCV 90.4 fL (80.0-100.0); MEAN PLATELET VOLUME 11.1 fL (7.4-10.4); MONOCYTES 6.9 % (2-11); PLATELET COUNT 260 10x3/uL (130-400); RBC 3.85 10x6/uL (4.00-5.40); RDW 14.4 % (11.5-14.5); WBC 11.8 10x3/uL (4.8-10.8)
[2016-12-30 19:46] LABS: ALBUMIN 3.7 g/dL (3.4-5.0); ANION GAP 17.8 mmol/L (8-16); BILIRUBIN - TOTAL 0.11 mg/dL (0.2-1.3); CALCIUM 8.9 mg/dL (8.5-10.1); CARBON DIOXIDE 21.9 mmol/L (21.0-32.0); CREATININE - SERUM 1.1 mg/dL (0.6-1.3); POTASSIUM - SERUM 3.7 mmol/L (3.5-5.1); PROTEIN - SERUM 7.1 g/dL (6.4-8.2)
[2016-12-30 20:45] LABS: APPEARANCE CLEAR (CLEAR); BILIRUBIN NEGATIVE (NEGATIVE); COLOR YELLOW (YELLOW); GLUCOSE NEGATIVE (NEGATIVE); KETONE NEGATIVE (NEGATIVE); LEUKOCYTE ESTERASE NEGATIVE (NEGATIVE); NITRITE NEGATIVE (NEGATIVE); PROTEIN NEGATIVE (NEGATIVE); UROBILINOGEN NORMAL (NORMAL)
== END 2016-12-30 21:44 | disposition home or self-care (01) ==
LOC: D.ER 14:33
PROVIDERS: Physician Assistant Medical
DX: R10.9 Unspecified abdominal pain (principal); R11.10 Vomiting, unspecified; F17.200 Nicotine dependence, unspecified, uncomplicated

== ENCOUNTER 2017-01-06 18:02 | Emergency (ER) | payer MEDICARE ==
[2016-12-01 14:10] VITALS: BMI 29.0
== END 2017-01-06 23:00 | disposition home or self-care (01) ==
LOC: D.ER 18:02
DX: Z03.89 Encounter for observation for other suspected diseases and conditions ruled out (principal)

== ENCOUNTER 2017-01-09 04:54 | Emergency (ER) | payer MEDICARE ==
[2016-12-01 14:10] VITALS: BMI 29.0
[2017-01-09 05:19] LABS: APPEARANCE CLEAR (CLEAR); BILIRUBIN NEGATIVE (NEGATIVE); COLOR YELLOW (YELLOW); GLUCOSE NEGATIVE (NEGATIVE); KETONE NEGATIVE (NEGATIVE); LEUKOCYTE ESTERASE NEGATIVE (NEGATIVE); NITRITE NEGATIVE (NEGATIVE); PROTEIN NEGATIVE (NEGATIVE); SPECIFIC GRAVITY 1.005 (1.005-1.020); UROBILINOGEN NORMAL (NORMAL)
[2017-01-09 05:34] LABS: BASOPHILS 0.1 % (0-2); EOSINOPHILS 2.3 % (0-7); HEMATOCRIT 40.5 % (36.0-48.0); HEMOGLOBIN 13.5 g/dL (12-16); IMMATURE GRANULOCYTES 0.4 % (0-5); LYMPHOCYTES 15.6 % (15-50); MCH 29.6 pg (26.0-34.0); MCHC 33.3 g/dL (31.0-37.0); MCV 88.8 fL (80.0-100.0); MEAN PLATELET VOLUME 11.4 fL (7.4-10.4); MONOCYTES 9.5 % (2-11); NEUTROPHILS 72.1 % (40-80); PLATELET COUNT 294 10x3/uL (130-400); RBC 4.56 10x6/uL (4.00-5.40); RDW 14.3 % (11.5-14.5); WBC 7.7 10x3/uL (4.8-10.8)
[2017-01-09 05:45] LABS: UDS - AMPHET NEGATIVE QUAL (NEGATIVE); UDS - BARB NEGATIVE QUAL (NEGATIVE); UDS - BENZO NEGATIVE QUAL (NEGATIVE); UDS - COCAINE NEGATIVE QUAL (NEGATIVE); UDS - METH NEGATIVE QUAL (NEGATIVE); UDS - OPIATE NEGATIVE QUAL (NEGATIVE); UDS - PCP NEGATIVE QUAL (NEGATIVE); UDS - THC NEGATIVE QUAL (NEGATIVE)
[2017-01-09 05:59] LABS: ALBUMIN 3.3 g/dL (3.4-5.0); ANION GAP 18.5 mmol/L (8-16); BILIRUBIN - TOTAL 0.47 mg/dL (0.2-1.3); CALCIUM 9.2 mg/dL (8.5-10.1); CARBON DIOXIDE 21.9 mmol/L (21.0-32.0); CREATININE - SERUM 1.5 mg/dL (0.6-1.3); PHENYTOIN (DILANTIN) 1.3 ug/mL (10.0-20.0); POTASSIUM - SERUM 3.4 mmol/L (3.5-5.1); PROTEIN - SERUM 8.5 g/dL (6.4-8.2)
== END 2017-01-09 10:41 | disposition other institution (70) ==
LOC: D.ER 04:54 → D.ICU 09:21 → D.ER 09:21
PROVIDERS: Emergency Medicine
DX: R41.82 Altered mental status, unspecified (principal); E11.649 Type 2 diabetes mellitus with hypoglycemia without coma; E87.6 Hypokalemia

== ENCOUNTER 2017-01-29 05:48 | Emergency (ER) | payer MEDICARE ==
[2016-12-01 14:10] VITALS: BMI 29.0
== END 2017-01-29 06:44 | disposition home or self-care (01) ==
LOC: D.ER 05:48
DX: R22.43 Localized swelling, mass and lump, lower limb, bilateral (principal); M79.605 Pain in left leg; M79.604 Pain in right leg; D86.9 Sarcoidosis, unspecified; E11.9 Type 2 diabetes mellitus without complications; F17.200 Nicotine dependence, unspecified, uncomplicated

== ENCOUNTER 2017-01-30 01:04 | Emergency (ER) | payer MEDICARE ==
[2016-12-01 14:10] VITALS: BMI 29.0
== END 2017-01-30 01:35 | disposition home or self-care (01) ==
LOC: D.ER 01:04
DX: G89.29 Other chronic pain (principal); E11.9 Type 2 diabetes mellitus without complications

== ENCOUNTER 2017-01-30 05:57 | Emergency (ER) | payer MEDICARE ==
[2016-12-01 14:10] VITALS: BMI 29.0
== END 2017-01-30 10:00 | disposition home or self-care (01) ==
LOC: D.ER 05:57
DX: G89.29 Other chronic pain (principal); E11.9 Type 2 diabetes mellitus without complications; E03.9 Hypothyroidism, unspecified; D86.9 Sarcoidosis, unspecified

== ENCOUNTER 2017-01-30 11:06 | Inpatient (IN) | payer MEDICARE ==
[~2017-01-30] VITALS: Ht 170.2 cm; Wt 910.1 kg
[2017-01-30 14:06] LABS: BASOPHILS 0.1 % (0-2); EOSINOPHILS 1.7 % (0-7); HEMATOCRIT 24.4 % (36.0-48.0); IMMATURE GRANULOCYTES 1.7 % (0-5); LYMPHOCYTES 13.9 % (15-50); MCH 28.7 pg (26.0-34.0); MCHC 32.8 g/dL (31.0-37.0); MCV 87.5 fL (80.0-100.0); MEAN PLATELET VOLUME 10.9 fL (7.4-10.4); MONOCYTES 5.2 % (2-11); NEUTROPHILS 77.4 % (40-80); RBC 2.79 10x6/uL (4.00-5.40); RDW 15.7 % (11.5-14.5); WBC 11.3 10x3/uL (4.8-10.8)
[2017-01-30 14:17] LABS: PLATELET COUNT 150 10x3/uL (130-400)
[2017-01-31 04:01] LABS: ALBUMIN 2.7 g/dL (3.4-5.0); ALKALINE PHOSPHATASE 115 U/L (46-116); ALT (SGPT) 53 U/L (10-68); BILIRUBIN - TOTAL 0.25 mg/dL (0.2-1.3); CALC OSMOLALITY 267 mosm/kg (275-300); CALCIUM 8.3 mg/dL (8.5-10.1); CARBON DIOXIDE 27.1 mmol/L (21.0-32.0); CHLORIDE - SERUM 98 mmol/L (98-107); CREATININE - SERUM 0.8 mg/dL (0.6-1.3); GLUCOSE 93 mg/dL (74-106); POTASSIUM - SERUM 4.3 mmol/L (3.5-5.1); PROTEIN - SERUM 5.8 g/dL (6.4-8.2); SODIUM 131 mmol/L (136-145); UREA NITROGEN 27 mg/dL (7-18); eGFR NON AFRICAN AMERICAN 87 mL/min (90-120)
[2017-01-31 04:10] LABS: THYROID STIMULATING HORMONE 0.07 uIU/mL (0.36-3.74)
[2017-01-31 04:13] LABS: PHENYTOIN (DILANTIN) 0.1 ug/mL (10.0-20.0)
[2017-01-31 05:09] LABS: APTT 26.7 SECONDS (22.8-39.4); INR 0.83 (0.85-1.17); PROTIME 11.2 SECONDS (11.6-15.0)
[2017-01-31 10:53] LABS: BASOPHILS 0 % (0-2); EOSINOPHILS 1.4 % (0-7); HEMATOCRIT 30.2 % (36.0-48.0); HEMOGLOBIN 10.4 g/dL (12-16); IMMATURE GRANULOCYTES 1.4 % (0-5); LYMPHOCYTES 11.2 % (15-50); MCH 30.3 pg (26.0-34.0); MCHC 34.4 g/dL (31.0-37.0); MEAN PLATELET VOLUME 10.5 fL (7.4-10.4); MONOCYTES 3.2 % (2-11); NEUTROPHILS 82.8 % (40-80); PLATELET COUNT 137 10x3/uL (130-400); RBC 3.43 10x6/uL (4.00-5.40); RDW 15.2 % (11.5-14.5); WBC 7.8 10x3/uL (4.8-10.8)
[2017-01-31 11:11] LABS: ALBUMIN 2.5 g/dL (3.4-5.0); ALKALINE PHOSPHATASE 140 U/L (46-116); ALT (SGPT) 51 U/L (10-68); BILIRUBIN - TOTAL 0.95 mg/dL (0.2-1.3); CALC OSMOLALITY 270 mosm/kg (275-300); CALCIUM 8.2 mg/dL (8.5-10.1); CARBON DIOXIDE 26.9 mmol/L (21.0-32.0); CHLORIDE - SERUM 100 mmol/L (98-107); CREATININE - SERUM 0.8 mg/dL (0.6-1.3); GLUCOSE 129 mg/dL (74-106); POTASSIUM - SERUM 4.3 mmol/L (3.5-5.1); PROTEIN - SERUM 5.6 g/dL (6.4-8.2); SODIUM 131 mmol/L (136-145); UREA NITROGEN 29 mg/dL (7-18); eGFR NON AFRICAN AMERICAN 87 mL/min (90-120)
[2017-01-31 16:30] VITALS: BP 103/71
[2017-01-31 16:45] VITALS: BP 105/74; BMI 34.7
[2017-01-31 17:30] VITALS: BP 105/74
--- NOTE | 2017-01-31 17:41 | NUR ---
1630 PATIENT ARRIVED FROM ER PER WHEEL CHAIR SKIN WARM AND DRY. DOES COMPLAIN OF PAIN ALL OVER HER BODY AT A 8. NEUROTIN GIVEN. PRESSURE ULCERS NOTIED IN RECTAL CRACK SEVERAL PINK OPEN AREAS. VERY TENDER TO TOUCH. WARM BLANKETS APPLIED. FEET SWOLLEN SKIN DRY. PATIENT HAS BEEN LIVING ON THE STREETS AND HAS NOT BEEN TAKING HER MEDS MONITOR SR. RIGHT SUBCLAVIAN TRIPLE LUMEN CENTRAL LINE NS STARTED. DINNER TRAY SERVED. ATE WITH HER FINGERS. HAD TO GIVE PATIENT A SPOON AND SUGGEST SHE TRY EATING WITH THE SPOON. PATIENT DID EAT WITH SPOON.
[2017-01-31 18:00] VITALS: BP 116/74
[2017-01-31 19:00] VITALS: BP 110/70
--- NOTE | 2017-01-31 19:30 | NUR ---
REPORT RECVD. CARE ASSUMED. INITIA L ASSMT COMPLETED. SEE FLOWSHEET FOR ALL FINDINGS. AWAKE AND AOX4. SPEECH IS SLOW AND CHILD LIKE, WHIMPERS AND WHINES TO COMMUNICATE NEEDS. YELLS OUT FOR NURSE AFTER REPEATED TEACHING ABOUT USING CALL LIGHT. DISRUPTIVE AND IMPULSIVE. ASSISTED TO BR TO VOID. SPO2 98% ON RA. SR ON THE MONITOR. WEAKNESS NOTED. REPORTS INCREASED PAIN IN LEGS. PULSES PALP. IN BED AT THIS TIME. BED ALARM ON. C/L IN REACH. CONT CURRENT POC.
[2017-01-31 20:00] VITALS: BP 118/76
--- NOTE | 2017-01-31 21:00 | NUR ---
AGITATED. WILL NOT STAY IN BED OR KEEP ICU MONITOR ON. YELLING OUT. WALKING OUT TO NURSES STATION YELLING AND CRYING. HITTING DESK AND BANGING ON BEDSIDE TABLE WITH FISITS. SPOKE WITH DR JOSÉ. REPORTED BEHAVIORS AND PAIN LEVEL. ORDER RECVD FOR PERCOCET 10/325 Q4HPRN. ASSISTED PT TO BR AND INTO BED WITH HS MEDS GIVEN AND PRN PERCOCET. ENCOURAGED PT TO REST. BED ALARM ON. HOB UP. C/L IN REACH. CONT CURRENT POC.
--- NOTE | 2017-01-31 23:15 | NUR ---
REASSESSMENT COMPLETED. SEE FLOWSHEET FOR ALL FINDINGS. RESTING IN BED REMAINS SLOW TO REPOND AND IMPULSIVE. VERBALLY DISRUPIVE. REMOVES MONITORS AND GOWN. GETS OOB WITHOUT ASSIST. RESP UNLABORED. SR ON THE MONITOR WHEN AVAILABLE. PAIN DECREASED AT THIS TIME. BED ALARM ON. C/L IN REACH. CONT CURRENT POC.
[2017-02-01] VITALS: BP 110/70
--- NOTE | 2017-02-01 01:15 | NUR ---
UP TO BR TO VOID. REMAINS CHILD LIKE AND WHINES TO COMMUNICATE NEEDS. YELLS OUT AND DOES NOT USE CALL LIGHT APPROPRIATELY. VSS. BED ALARM ON. C/L IN REACH. CONT POC.
--- NOTE | 2017-02-01 05:20 | NUR ---
SITTING UP IN BED, NEEDING TO "PEE". PUDDING AND CRACKERS ON GROUND IN ROOM. UP TO BATHROOM WITH ASSISTANCE. URINE SOAKED SHEETS NOTED. TOTAL LINEN CHANGE COMPLETED. NEW GOWN PLACED AND BACK TO BED WITH ASSIST.
[2017-02-01 05:39] LABS: BASOPHILS 0 % (0-2); EOSINOPHILS 2.2 % (0-7); HEMATOCRIT 32.3 % (36.0-48.0); HEMOGLOBIN 10.8 g/dL (12-16); IMMATURE GRANULOCYTES 1.2 % (0-5); LYMPHOCYTES 11.5 % (15-50); MCH 29.3 pg (26.0-34.0); MCHC 33.4 g/dL (31.0-37.0); MCV 87.5 fL (80.0-100.0); MEAN PLATELET VOLUME 10.7 fL (7.4-10.4); MONOCYTES 4.2 % (2-11); NEUTROPHILS 80.9 % (40-80); PLATELET COUNT 151 10x3/uL (130-400); RBC 3.69 10x6/uL (4.00-5.40); RDW 15.8 % (11.5-14.5); WBC 6.5 10x3/uL (4.8-10.8)
[2017-02-01 05:47] LABS: CALC OSMOLALITY 268 mosm/kg (275-300); CALCIUM 8.6 mg/dL (8.5-10.1); CHLORIDE - SERUM 102 mmol/L (98-107); CREATININE - SERUM 0.8 mg/dL (0.6-1.3); GLUCOSE 99 mg/dL (74-106); POTASSIUM - SERUM 4.8 mmol/L (3.5-5.1); SODIUM 133 mmol/L (136-145); eGFR NON AFRICAN AMERICAN 87 mL/min (90-120)
[2017-02-01 05:50] LABS: UREA NITROGEN 21 mg/dL (7-18)
[2017-02-01 07:00] VITALS: BP 125/78
--- NOTE | 2017-02-01 07:15 | NUR ---
RESTING EYES CLOSED. DENIES NEEDS AT THIS TIME. PT IN VISUAL LINE OF SIGHT.
[2017-02-01 11:00] VITALS: BP 106/73
[2017-02-01 15:00] VITALS: BP 94/60
--- NOTE | 2017-02-01 15:00 | NUR ---
BROTHER AT BEDSIDE TO VISIT.
--- NOTE | 2017-02-01 15:45 | NUR ---
SHAUNNA ON CENTRAL CALLED. HOME MED LIST REVIEWED AND VERIFIED.
--- NOTE | 2017-02-01 17:01 | NUR ---
SPOKE WITH MASTER CLOTH BIN PACKER ABOUT PHYSCIAN AND PATIENT CONCERNS. PT STATES MOTHER "TAKES MY CHECK AND SPENDS IT ALL ON DRUGS. SHE SAYS I CAN'T STAY WITH HER BUT MY KIDS CAN" APS CALLED. INFORMED THAT "YOU MAY OR MAY NOT RECEIVE A CALL BACK DEPENDING ON IF APS DECIDES IF THIS NEEDS TO BE INVESTIGATED".
[2017-02-01] MEDS ORDERED: PROTONIX40 MG PO (17:16)
[2017-02-01] MEDS ORDERED: RISPERDAL0.5 MG PO (17:17)
[2017-02-01] MEDS ORDERED: VFEND50 MG PO (17:19)
[2017-02-01] MEDS ORDERED: CYMBALTA60 MG PO (17:20)
[2017-02-01] MEDS ORDERED: DESERYL100 MG PO (17:20)
[2017-02-01] MEDS ORDERED: LOPRESSOR25 MG PO (17:21)
[2017-02-01] MEDS ORDERED: KEPPRA500 MG PO (17:21)
--- NOTE | 2017-02-01 17:39 | NUR ---
FAXED CONSULT TO [facility]. SPOKE WITH CARMINE RIVAS.
[2017-02-01 19:00] VITALS: BP 104/83
--- NOTE | 2017-02-01 19:00 | NUR ---
REPORT RECEIVED AND ASSESSMENT COMPLETED. SEE FLOWSHEET FOR FULL DTAILS. PT WAS FOUND AT BUS STOP UNCONCIOUS. BLOOD GIVEN IN ER. H&H NOW AT . PT REPORTED SUICIDAL IDEATION AND IS IN ICU A RESULT. CURRENTLY AWAITING PSYCH PLACEMENT. PT IS WITHDRAWN THOUGH HAS APPROPRIATE RESPONSES AT THIS TIME. DENIES IDEATION AT THIS TIME, WILL MONITOR CLOSELY. VSS.
--- NOTE | 2017-02-01 21:00 | NUR ---
2100 MEDS GIVEN. FSBS 106. NO INSULIN GIVEN AT THIS TIME. WILL MONITOR
--- NOTE | 2017-02-01 21:47 | NUR ---
REPORT RECEIVED AND ASSESSMENT COMPLETED. SEE FLOWSHEET FOR FULL DETAILS. PT WAS FOUND AT BUS STOP UNCONCIOUS. BLOOD GIVEN IN ER. H&H AT NOW. PT HAS REPORTED SUICIDAL IDEATION, AND IS IN ICU A RESULT. CURRENTLY AWAITING PSYCH PLACEMENT. PATIENT IS WITHDRAWN, THOUGH HAS APPROPRIATE RESPONSES AT THIS TIME. DENIES IDEATION AT THIS TIME. WILL MONITOR CLOSELY. VSS.
[2017-02-01 23:00] VITALS: BP 110/92
--- NOTE | 2017-02-01 23:00 | NUR ---
NO CHANGES IN STATUS AT THIS TIME. VSS. WILL MONITOR.
--- NOTE | 2017-02-02 01:00 | NUR ---
FULL LINEN CHANGE PROVIDED AT THIS TIME. WILL CONTINUE TO MONITOR.
[2017-02-02 03:00] VITALS: BP 105/89
--- NOTE | 2017-02-02 03:00 | NUR ---
THROUGHOUT SHIFT PT HAS REQUESTED EXCESSIVE AMOUNTS OF FOOD AND DRINK. WILL PASS ON TO DAY SHIFT FOR FURTHER INVESTIGATION.
--- NOTE | 2017-02-02 05:04 | NUR ---
NO CHANGES IN PATIENT STATUS AT THIS TIME. VSS. WILL MONITOR
[2017-02-02 07:00] VITALS: BP 103/60
[2017-02-02 07:00] LABS: CALC OSMOLALITY 281 mosm/kg (275-300); CALCIUM 9.2 mg/dL (8.5-10.1); CARBON DIOXIDE 29.5 mmol/L (21.0-32.0); CHLORIDE - SERUM 105 mmol/L (98-107); CREATININE - SERUM 0.9 mg/dL (0.6-1.3); GLUCOSE 109 mg/dL (74-106); POTASSIUM - SERUM 4.5 mmol/L (3.5-5.1); SODIUM 140 mmol/L (136-145); UREA NITROGEN 18 mg/dL (7-18); eGFR NON AFRICAN AMERICAN 76 mL/min (90-120)
--- NOTE | 2017-02-02 07:00 | NUR ---
ASSESSMENT COMPLETE PER FLOWSHEET.
[2017-02-02 07:22] LABS: BASOPHILS 0 % (0-2); EOSINOPHILS 3.1 % (0-7); HEMATOCRIT 31.3 % (36.0-48.0); HEMOGLOBIN 10.3 g/dL (12-16); IMMATURE GRANULOCYTES 0.6 % (0-5); LYMPHOCYTES 16.4 % (15-50); MCH 29.3 pg (26.0-34.0); MCHC 32.9 g/dL (31.0-37.0); MCV 89.2 fL (80.0-100.0); MEAN PLATELET VOLUME 11.3 fL (7.4-10.4); MONOCYTES 5.5 % (2-11); NEUTROPHILS 74.4 % (40-80); PLATELET COUNT 138 10x3/uL (130-400); RBC 3.51 10x6/uL (4.00-5.40); RDW 16.1 % (11.5-14.5)
[2017-02-02 07:24] LABS: WBC 4.8 10x3/uL (4.8-10.8)
[2017-02-02 09:50] LABS: HEMOGLOBIN A1C 6.4 % (4.8-6.0)
--- NOTE | 2017-02-02 10:00 | NUR ---
SLEEPING NO DISTRESS NOTED.
[2017-02-02 10:10] VITALS: Ht 170.2 cm; Wt 910.1 kg
[2017-02-02 11:00] VITALS: BP 97/60
--- NOTE | 2017-02-02 13:00 | NUR ---
SLEEPING NO DISTRESS. SR UP X 2.
--- NOTE | 2017-02-02 14:28 | NUR ---
Is the patient Alert and Oriented? No 0 * ADLs Independent 0 * List name and contact numbers for known caregivers / representatives who currently or will assist patient after discharge: Mother - Celso [phone] Daughter's Grandmother - Jacinta [phone] * Additional services required to return to the preadmission environment? Yes Patient Name: DWIGHT FRANCO Admission Status: Elective Accout number: [id number] Admission Date: 01-31-2017 : 1980 Admission Diagnosis: Attending: JONAH JOSÉ Current LOS: 2 Planned Disposition: Psych facility Primary Insurance: MEDICARE A & B Discharge Planning Comments: CM met with patient. She is alert & oriented x3, but somewhat confused. She tells me she lives at home with her mother and her 3 daughters. She states, "my mother hates me, don't call her for anything". She is unable to tell me the ages of her 3 daughters. She is unable to most simple questions. Explained I would be working on inpatient psych placement for her at discharge - not sure she understood what I was saying. Referrals have been faxed to [facility], [facility], & [facility] - waiting determination. CM will follow. Building Operator: Ayde Guzman
[2017-02-02 15:00] VITALS: BP 103/68
--- NOTE | 2017-02-02 15:00 | NUR ---
SLEEPING NO DISTRESS NOTED. [facility] CALLED AND SAID COULD NOT EXCEPT PT NEED TO GO TO [facility].
--- NOTE | 2017-02-02 18:02 | NUR ---
STANDING AT DOOR WANTING FRUIT JUICE.
[2017-02-02 19:00] VITALS: BP 104/83
--- NOTE | 2017-02-02 19:30 | NUR ---
REPORT RECEIVED. SHIFT ASSESSMENT COMPLETED PER FLOW SHEET. PT LAYING IN BED AWAKE AND ALERT. SODA AND KRISTAL CRACKERS PROVIDED PER REQUEST. S1S2 PRESENT. RADIAL AND PEDAL PULSES PALP. +3 PITTING EDEMA NOTED BLE. GENERALIZED EDEMA IN BUE. BS ACTIVE X4. MUCOUS MEMBRANES MOIST. SKIN WARM AND DRY. REDDNESS AND EXCORIATION NOTED TO BUTTOCK. REDDENED BRIE AREA. BRUISES NOTED BILAT ARMS. DRY-CRACKING TO BLE. RT SUBCLAVIAN CVL, LOCKED. SEE FLOW SHEET FOR COMPLETE ASSESSMENT. WILL CONTINUE TO MONITOR.
--- NOTE | 2017-02-02 20:30 | NUR ---
PT AT ROOM DOOR ASKING FOR SODA. SODA PROVIDED PER REQUEST. DENIES FURTHER NEEDS AT THIS TIME. WILL CONTINUE TO MONITOR.
--- NOTE | 2017-02-02 21:00 | NUR ---
NO VISITORS AT THIS TIME, CRANBERRY, APPLE JUICE, AND WARM BLANKET PROVIDED PER REQUEST. DENIES FURTHER NEEDS. WILL CONTINUE TO MONITOR.
[2017-02-02 23:00] VITALS: BP 106/73
--- NOTE | 2017-02-02 23:00 | NUR ---
PT RESTING IN BED. NO DISTRESS NOTED. DENIES NEEDS AT THIS TIME. BED IN LOWEST POSITION. WILL CONTINUE TO MONITOR.
--- NOTE | 2017-02-03 01:00 | NUR ---
SODA AND KRISTAL CRACKERS PROVIDED PER REQUEST. DENIES FURTHER NEEDS. BED IN LOWEST POSITION. WILL CONTINUE TO MONITOR.
[2017-02-03 03:00] VITALS: BP 103/60
--- NOTE | 2017-02-03 03:00 | NUR ---
PT RESTING IN BED, NO DISTRESS NOTED. DENIES NEEDS AT THIS TIME. WILL CONTINUE TO MONITOR. BED IN LOWEST POSITION.
--- NOTE | 2017-02-03 03:31 | CN ---
PATIENT NAME:DWIGHT FRANCO MEDICAL RECORD: [id number] : 84 LOCATION:[facility].CV06 ADMIT DATE: 01/31/17 ACCOUNT: [id number] CONSULTING PHYSICIAN: NAYA CARPENTER III, MD REFERRING PHYSICIAN: JONAH JOSÉ MD DATE OF CONSULTATION: 02/02/2017 FINDINGS: A 36-year-old -[place] female who is well known to psychiatry from multiple consultations over the last 2 years. This patient carries a previous diagnosis of schizoaffective disorder, bipolar type. She also carries a past diagnosis of neurosarcoidosis. The patient has exhibited a somewhat transient lifestyle. She lives at times with her mother and at times other places. She has had an inconsistent history of treatment for her psychiatric illness. She has been hospitalized locally at [facility] and other facilities as well in that area. For the time, she was followed by [facility], but it is unclear whether she is getting any kind of active follow up either for her schizoaffective disorder or her medical problems as well. The patient entered the hospital on this occasion with markedly altered state of consciousness. She was extremely confused and disoriented. Drug screen at time of admission was negative. However, the patient has shown an altered level of sensorium that has fluctuated during the hospitalization. Staff reports that earlier in the day, she was alert asking intelligent questions and so forth. However, during my interview with her, she appeared very confused and at times disoriented. The patient in the past has been diagnosed as having some element of cluster B personality traits and it is unclear whether or not any of her presentation during my examination was feigned or not. Staff also reported that the patient has a history of misuse of opioid narcotics, which she evidently obtains from primary care. She was hospitalized at [facility] earlier this year, but does not know what type of followup she has had. On exam today, as mentioned, the patient appeared rather disoriented. Mood was, at times anxious and at other times euthymic. Affect very constricted. Speech showed considerable latency and even some perseveration. Content of thought is negative for overt psychosis. On sensorium testing, the patient claimed did not know where she was, although this is contradicted by observation from staff earlier in the day. She did not cooperate fully for memory testing. DIAGNOSTIC IMPRESSION: AXIS I: Schizoaffective disorder by history, probable polysubstance abuse as well. AXIS II: Cluster B traits. AXIS III: Neurosarcoidosis. PLAN: 1. The patient is not acutely suicidal or homicidal. She probably can be managed well enough on the medical floor once she is cleared to be transferred. CONSULT REPORT [id number] DWIGHT FRANCO 2. Assuming the patient clears considerably from a medical standpoint, it would be advisable to go ahead and try to readmit to a psychiatric facility for more definitive treatment either [facility] or one of the other facilities in the area. 3. We would not recommend the use of routine neuroleptics or mood stabilizers just due to her altered mental state. However, as she progresses, consideration should be given to a mild antipsychotic such as perphenazine in the range of 4 to 8 mg daily. TRANSINT:[id number] Voice Confirmation ID: [id number] DOCUMENT ID: [id number] NAYA CARPENTER III, MD at 0331 CC: [id number] DICTATION DATE: 02/02/17 1236 DOORKEEPER: 02/02/17 1311 ADM IN [facility] [address] [place] [address]
--- NOTE | 2017-02-03 04:50 | NUR ---
COMPLETE BED LINEN CHANGE. NEW GOWN PROVIDED. FLOOR CLEANED FROM PT PEEING ON THE FLOOR. DENIES NEEDS AT THIS TIME. CALL LIGHT WITHIN REACH. BED IN LOWEST POSITION. WILL CONTINUE TO MONITOR.
[2017-02-03 04:52] LABS: BASOPHILS 0 % (0-2); EOSINOPHILS 2.7 % (0-7); HEMATOCRIT 31.5 % (36.0-48.0); IMMATURE GRANULOCYTES 0.8 % (0-5); LYMPHOCYTES 17.3 % (15-50); MCH 28.9 pg (26.0-34.0); MCHC 31.7 g/dL (31.0-37.0); MEAN PLATELET VOLUME 10.8 fL (7.4-10.4); MONOCYTES 5.2 % (2-11); PLATELET COUNT 151 10x3/uL (130-400); RBC 3.46 10x6/uL (4.00-5.40); RDW 16.5 % (11.5-14.5); WBC 4.8 10x3/uL (4.8-10.8)
[2017-02-03 04:55] LABS: CALC OSMOLALITY 287 mosm/kg (275-300); CALCIUM 9.1 mg/dL (8.5-10.1); CARBON DIOXIDE 31.1 mmol/L (21.0-32.0); CHLORIDE - SERUM 108 mmol/L (98-107); CREATININE - SERUM 0.9 mg/dL (0.6-1.3); GLUCOSE 92 mg/dL (74-106); POTASSIUM - SERUM 4.6 mmol/L (3.5-5.1); SODIUM 143 mmol/L (136-145); UREA NITROGEN 22 mg/dL (7-18); eGFR NON AFRICAN AMERICAN 76 mL/min (90-120)
[2017-02-03 07:00] VITALS: BP 113/85
--- NOTE | 2017-02-03 07:00 | NUR ---
REC'D REPORT AND RESUMED CARE, ROSEANNO, HOLLY, DENIES PAIN AT THIS TIME, ASSESSMENT COMPLETE PER FLOWSHEET, CALL LIGHT IN REACH, LARGE CUP OF ICE AND 2 DIET LEMON [place] WITH KRISTAL CRACKERS TO BEDSIDE, NO OTHER NEEDS AT THIS TIME, WILL CONITNUE WITH POC
--- NOTE | 2017-02-03 09:49 | NUR ---
Rec'd call from Kaylie with [facility] & Ciara with [facility] - both have declined patient & have recommended outpatient follow up.
--- NOTE | 2017-02-03 09:53 | NUR ---
C/O PAIN 8/10 ALL OVER BODY, PERCOCET 10/325MG GIVNE PER MAR FLOW SHEET
[2017-02-03 11:00] VITALS: BP 95/53
--- NOTE | 2017-02-03 11:00 | NUR ---
RESTING WITH NO SIGNS OF DISTRESS, VSS, PAIN 4/, MEDS GIVEN
--- NOTE | 2017-02-03 11:57 | NUR ---
LUNCH TRAY TO BEDSIDE, INDEPENDENT WITH SET UP AND EATING
--- NOTE | 2017-02-03 12:30 | NUR ---
Rec'd call from Cruz with [facility] - they are unable to accept patient at this time. Spoke with Darby at [facility] - they "do not have any capability for her today". Waiting to hear back from [facility].
[2017-02-03 15:00] VITALS: BP 98/69
--- NOTE | 2017-02-03 15:00 | NUR ---
UP IN BED HAVING A SNACK, VSS, NO ACUTE CHANGE FROM PREVIOUS ASSESSMENT, WILL CONTINUE WITH POC
--- NOTE | 2017-02-03 16:40 | NUR ---
DINNER TRAY TO BEDSIDE, INDEPENDENT WITH SET UP AND EATING
--- NOTE | 2017-02-03 18:00 | NUR ---
RESTING WITH NO SIGNS OF DISTRESS, CALL LIGHT IN USE, NO NEEDS AT THIS TIME
[2017-02-03 19:00] VITALS: BP 105/72
--- NOTE | 2017-02-03 19:00 | NUR ---
REPORT RECEIVED AND ASSESSMENT COMPLETED SEE FLOWSHEET FOR FULL DETAILS. NO OTHER CHANGES SINCE LAST CARE. VSS. WILL MONITOR
--- NOTE | 2017-02-03 20:03 | HP ---
PATIENT: DWIGHT FRANCO MEDICAL RECORD: [id number] ACCOUNT: [id number] LOCATION:[facility] SuyapaCV06 : 84 ADMISSION DATE: 01/31/17 HISTORY AND PHYSICAL EXAMINATION DATE OF ADMISSION: 01/31/2017 CHIEF COMPLAINT: She was found unresponsive at a bus stop. HISTORY OF PRESENT ILLNESS: This is a 36-year-old female with many visits to both [facility] and [facility], reported she had generalized malaise and she collapsed on a bus, she hurts all over. The report from the ER staff said the patient states she wanted to and the plan was to cut her throat. She has had at least one, but probably multiple hospitalizations to psychiatric units including [facility] here in the [place]. There is no family to gain any history from. In the Emergency Room, her sodium was 131, her hemoglobin was 8.0 with hematocrit of 24.4. Dilantin level was low at 0.1. An accurate medication list is really not known. She is not able to tell me much history at all. She cannot tell me her medications. PAST MEDICAL HISTORY: Which is obtained from previous hospitalizations/ER visits and from review of Epic at [facility], the patient has a history of neurosarcoidosis. An MRI of the brain was done on 01/09/2017 showing nodular leptomeningeal enhancement, seen in both hemispheres and with the suprasellar cistern giving the appearance to the patient's history, this is most concerning for neurosarcoidosis. It is not known if she is getting cared here or in [place] or anywhere. For that matter again, no family is present to give any history. She also has a history of diabetes, hypothyroidism, seizure disorders, uterine cancer in 2007, depression, anxiety, bipolar illness. PAST SURGICAL HISTORY: Hysterectomy, bilateral tubal ligation, ORIF of the tibial plateau fracture in June [address] Purvi Saleem at [facility]. FAMILY HISTORY: Mother reportedly has heart disease, rheumatoid arthritis and breast cancer. MEDICATIONS: The list of home medications includes Benadryl 25 mg 1 every 6 hours as needed for itch; voriconazole 100 mg 1 p.o. t.i.d.; Metoprolol 25 mg b.i.d.; buspirone 5 mg t.i.d. p.r.n. anxiety; Dilantin extended release 200 mg 2 capsules b.i.d.; gabapentin 300 mg t.i.d.; Cymbalta 60 mg once a day; Restoril 15 mg at bedtime; Keppra 1000 mg twice a day; Percocet 10/325 one every 4 hours as needed for pain; Risperdal 0.5 mg p.o. b.i.d.; trazodone 100 mg at bedtime; Protonix 40 mg once a day; levothyroxine 50 mcg once a day; metformin 1000 mg twice a day. REVIEW OF SYSTEMS: Generally I am unable to obtain any from this patient who is not coherent when I saw her initially. PHYSICAL EXAMINATION: VITAL SIGNS: Temperature 95.7, pulse 88, respirations 18, blood pressure 103/71. GENERAL: She is mostly sleeping, will open her eyes and mumble a fall back asleep. SKIN: Warm and dry. No open wounds. HEENT: Grossly within normal limits. HISTORY AND PHYSICAL [id number] [place] OMI NECK: Supple. HEART: Regular rate and rhythm. LUNGS: Clear. ABDOMEN: Soft, flat and nontender. EXTREMITIES: No edema. She has well-healed scar in the left lower leg due to surgeries. LABORATORY AND DIAGNOSTIC DATA: CBC showed a white count of 7800, hemoglobin 10.4, hematocrit 30.2. Basic metabolic panel; sodium 131, potassium 4.3, chloride 100, CO2 26.9, BUN 29, creatinine 0.8, glucose 129, calcium 8.2. Liver enzymes are fairly normal. TSH is little low at 0.07. INR is 0.83. Dilantin level is 0.1. Alcohol level is 0.0. Chest x-ray showed no acute process seen. ASSESSMENT: 1. Mental status change. 2. Anemia, it is not known if this is acute or chronic. 3. History of neurosarcoidosis followed by ? 4. Hypothyroidism. 5. Diabetes. 6. History of seizure disorder. 7. Suicidal thoughts. PLAN: She needs to be monitored closely. There are no ICU bed, she will be monitored in the Emergency Department until a bed can be found In ICU setting. Psychiatry is consulted. We are not sure if they come in over the weekend. She will be given a couple units of blood. We will try again further information on her history and where she is actually being treated currently. Other tests and procedures as warranted. TRANSINT:[id number] Voice Confirmation ID: [id number] DOCUMENT ID: [id number] JONAH JOSÉ MD at 2002 CC: [id number] DICTATION DATE: 02/01/178 INDUSTRIAL ECONOMIST: 02/02/17 0035 ADM IN [id number] [place] [address]
--- NOTE | 2017-02-03 21:00 | NUR ---
X-KEVIN ORDERS NOW IN PLACE PER DR JOSÉ. FAMILY AT BEDSIDE. LABS DRAWN PER ORDERS, AND 2100 MEDS GIVEN. NO OTHER CHANGES AT THIS TIME. VSS. WILL MONITOR
[2017-02-03 21:52] LABS: % SATURATION 22 % (15-55); IRON 55 ug/dl (35-150); TOTAL IRON BIND CAPACITY 250 ug/dl (260-445); UNSAT IRON BIND CAPACITY 195 ug/dl (150-375)
[2017-02-03 23:00] VITALS: BP 105/69
--- NOTE | 2017-02-03 23:00 | NUR ---
NO CHANGE IN STATUS AT THIS TIME. WILL CONTINUE TO MONITOR
--- NOTE | 2017-02-04 01:00 | NUR ---
NO CHANGES IN STATUS AT THIS TIME. WILL CONTINUE TO MONITOR
[2017-02-04 03:00] VITALS: BP 102/66
--- NOTE | 2017-02-04 03:00 | NUR ---
PARTIAL BEDBATH GIVEN AT THIS TIME. FOOD AND DRINK PROVIDED AND LINEN CHANGED. NO OTHER CHANGES AT THIS TIME. WILL MONITOR
--- NOTE | 2017-02-04 05:00 | NUR ---
NO CHANGES IN STATUS AT THIS TIME. WILL MONITOR
[2017-02-04 07:00] VITALS: BP 98/56
--- NOTE | 2017-02-04 07:00 | NUR ---
REC'D REPORT AND RESUMED KANCHAN, ROSEANNO, VSS, DENIES PAIN, ASSESSMENT COMPLETE PER FLOWSHEET, AWAITING BREAKFAST
[2017-02-04 07:05] LABS: BASOPHILS 0 % (0-2); EOSINOPHILS 3.3 % (0-7); HEMATOCRIT 30.5 % (36.0-48.0); HEMOGLOBIN 9.9 g/dL (12-16); IMMATURE GRANULOCYTES 0.5 % (0-5); LYMPHOCYTES 22.1 % (15-50); MCH 29.7 pg (26.0-34.0); MCHC 32.5 g/dL (31.0-37.0); MCV 91.6 fL (80.0-100.0); MEAN PLATELET VOLUME 11.1 fL (7.4-10.4); MONOCYTES 5.8 % (2-11); NEUTROPHILS 68.3 % (40-80); PLATELET COUNT 131 10x3/uL (130-400); RBC 3.33 10x6/uL (4.00-5.40); RDW 16.5 % (11.5-14.5); WBC 4.3 10x3/uL (4.8-10.8)
[2017-02-04 07:16] LABS: CALCIUM 9.2 mg/dL (8.5-10.1); CARBON DIOXIDE 29.2 mmol/L (21.0-32.0); POTASSIUM - SERUM 4.2 mmol/L (3.5-5.1)
--- NOTE | 2017-02-04 07:45 | NUR ---
BREAKFAST RTO BEDSIDE, INDEPENDENT WITH SET UP AND EATING
--- NOTE | 2017-02-04 09:00 | NUR ---
AM MEDS GIVEN PER MAR AND PROTOCAL
--- NOTE | 2017-02-04 10:54 | NUR ---
CVL DRESSING CHANGE COMPLETED PER PROTOCAL
--- NOTE | 2017-02-04 10:55 | NUR ---
TRANSFERED VIA WHEELCHAIR TO 2218, AAO
--- NOTE | 2017-02-04 11:25 | NUR ---
PT AOX4 RESP EVEN AND NONLABORED IV TO RIGHT SUBCLAVIAN PATENT AND INTACT AT THIS TIME PT DENIES NEEDS AT THIS TIME SRX2 BED AT LOWEST SETTING CALL LIGHT WITHIN REACH WILL CONTIINUE TO MONITOR
[2017-02-04 12:21] VITALS: BP 99/47
[2017-02-04 15:39] VITALS: BP 107/71
[2017-02-04 20:00] VITALS: BP 96/59
--- NOTE | 2017-02-04 20:00 | NUR ---
ASSESSMENT PER FLOWSDONAVANT. SOME CONFUSION NOTED. WORD SCRAMMLE NOTED STATES WANTS TISSUE GIVEN BATHROOM TISSUE/FACIAL TISSUE/ AND WIPES. SHAKES HEAD NO WANTS TOWELS AND WASHCLOTHS.
--- NOTE | 2017-02-04 21:00 | NUR ---
MEDS GIVEN PER JUL. IV PATENT RT SUBCL. SALINE LOCKED SITE.UP AD YANG TO BR VOIDS WELL. WANDERS IN ROOM CAME OUT TO DESK WANTING TISSUE. EXPLAINED TO PATIENT TISSUE IS SITTING ON HER TABLE IN HER ROOM.
--- NOTE | 2017-02-04 23:00 | NUR ---
IN BED HOB UP 30 DEGREES. SR UP X2 CALL LIGHT WITHIN REACH.
--- NOTE | 2017-02-05 01:51 | NUR ---
PATIENT WANDERING IN HALLWAY DRIBBLING URINE ON FLOORS. EXCORTED BACK TO HER ROOM TO BATHROOM. PATIENT CAME OUT INTO THE HALLWAY AGAIN AND STATED SHE IS IN LAS VAGUS. ATTEMPT TO RE-ORIENT PATIENT. ASSISTED BACK INTO HER ROOM. WAS GIVEN A SANDWICH TRAY AND SOME MILK A SNACK.
--- NOTE | 2017-02-05 03:32 | NUR ---
IN ROOM RESTING IN BED SR UP X2 CALL LIGHT WITHIN REACH.
[2017-02-05 04:00] VITALS: BP 102/58
[2017-02-05 05:22] LABS: BASOPHILS 0.3 % (0-2); EOSINOPHILS 3.2 % (0-7); HEMATOCRIT 32.6 % (36.0-48.0); HEMOGLOBIN 10.4 g/dL (12-16); IMMATURE GRANULOCYTES 0.5 % (0-5); LYMPHOCYTES 24.9 % (15-50); MCH 29.5 pg (26.0-34.0); MCHC 31.9 g/dL (31.0-37.0); MCV 92.4 fL (80.0-100.0); MEAN PLATELET VOLUME 11.2 fL (7.4-10.4); MONOCYTES 4.8 % (2-11); NEUTROPHILS 66.3 % (40-80); PLATELET COUNT 138 10x3/uL (130-400); RBC 3.53 10x6/uL (4.00-5.40); RDW 16.6 % (11.5-14.5); WBC 3.8 10x3/uL (4.8-10.8)
[2017-02-05 05:40] LABS: ANION GAP 14.1 mmol/L (8-16); CALCIUM 9.1 mg/dL (8.5-10.1); CARBON DIOXIDE 29.6 mmol/L (21.0-32.0); CREATININE - SERUM 1.1 mg/dL (0.6-1.3); POTASSIUM - SERUM 4.7 mmol/L (3.5-5.1)
[2017-02-05 09:01] VITALS: BP 92/61
[2017-02-05 09:18] LABS: FOLATE (FOLIC ACID) - SERUM 9.1 ng/mL (>3.0)
[2017-02-05 12:22] VITALS: BP 102/67
--- NOTE | 2017-02-05 12:37 | NUR ---
PT WANDERING ON THE MED2 CASTELLON LOOKING FOR THE BATHROOM. PT BROUGHT BACK WITH CLEAN LINENS AND PUT ON A POSIALARM WITH NONSKID SOCKS AT THIS TIME
--- NOTE | 2017-02-05 13:36 | NUR ---
PT AOX1 RESP EVEN AND NONLABORED PT DENIES NEEDS AT THIS TIME IV TO RIGHT SUBCLAVIAN PATENT AND INTACT AT THIS TIME SRX2 BED AT LOWEST SETTING CALL LIGHT WITHIN REACH WILL CONTINUE TO MONITOR
[2017-02-05 17:12] VITALS: BP 106/70
--- NOTE | 2017-02-05 19:00 | NUR ---
REPORT RECEIVED AND CARE OF PT ASSUMED. PT SITTING UP IN BED WATCHING. UNABLE OR UNWILLING TO ANSWER QUESTIONS. RIGHT CENTRAL LINE SALINE LOCKED. WILL MONITOR FOR NEEDS. BED ALARM IN USE.
[2017-02-05 20:00] VITALS: BP 99/56
--- NOTE | 2017-02-05 21:07 | NUR ---
PT AMBULATING IN ROOM AND INTO CASTELLON...VERY UNSTEADY GAIT. CONFUSED AND RESISTS REDIRECTION. GAVE BENADRYL, BUSPAR AND PERCOCET FOR HS MEDS, PT ANSWERS WITH HEAD SHAKE THAT SHE IS IN PAIN. WILL MONITOR VENANCIO FOR EFFECTIVENESS. BED ALARM IN USE.
[2017-02-06] VITALS: BP 106/69
--- NOTE | 2017-02-06 00:10 | NUR ---
PT STUMBLING AROUND ROOM...IN AND OUT OF BATHROOM AND SHOWER. TRYING TO PULL COMPUTER FROM WALL, AND GETTING AGGITATED WHEN BEING RE-DIRECTED. 2 NURSES ARE IN ROOM TRYING TO KEEP PT FROM HURTING HERSELF OR OTHERS. CALLED DR PETERSON - GENERAL PRODUCTION MANAGER PHYSICIAN. RECEIVED ORDER TO GIVE ATIVAN 1 MG IVP Q2HR PRN.
[2017-02-06 04:00] VITALS: BP 119/73
--- NOTE | 2017-02-06 05:57 | NUR ---
ALL BEDDING AND GOWN CHANGED DUE TO INCONTINENT EPISODE. PT POSITIONED BACK IN BED FOR COMFORT. STILL CONFUSED BUT CAN RE-DIRECT.
--- NOTE | 2017-02-06 07:29 | NUR ---
REPORT RECEIVED FROM RESIZER OPERATOR NURSE. CALL LIGHT IN REACH.
--- NOTE | 2017-02-06 08:46 | NUR ---
ASSESSMENT COMPLETED. ASSISTED PATIENT TO BR AND LET HER SIT FOR 15 MINUTES TO SEE IF SHE COULD HAVE A BM. SHE WAS UNABLE TO. ASSISTED BACK TO BED. VERY UPSET RIGHT NOW BECAUSE SHE IS UNABLE TO VOICE HER CONCERNS. STATES SHE WANTS HER PAIN PILL WHICH I GAVE WITH HER OTHER AM MEDS. ALSO GAVE IV ATIVAN. BED ALARM ON. CALL LIGHT IN REACH. WILL CONTINUE WITH PLAN OF CARE.
[2017-02-06 08:48] VITALS: BP 95/62
--- NOTE | 2017-02-06 10:13 | NUR ---
IN BED WITH EYES CLOSED. RESP EVEN AND UNLABORED. CALL LIGHT IN REACH.
--- NOTE | 2017-02-06 12:26 | NUR ---
OOB TRYING TO WALK IN OTHERS' ROOMS. INCONTINENT OF URINE ON HER FLOOR. PATIENT WITH A PARTIAL BED BATH, LINENS CHANGED. WANTING PAIN MEDS. PERCOCET PO. FSBS 84 SO INSULIN REQUIRED. CALL LIGHT IN REACH.
--- NOTE | 2017-02-06 13:32 | NUR ---
RD f/u Chart reviewed, questionable weight loss of ~7 pounds, Pt obese consuming 775-100% of Diabetic diet. Skin reviewed. currently/previously Stage II to coccyx though eating well. no changes at this time. PLAN: continue current diet, continue plan of care, continue to honor pt food preferences within reason of diet and medical status. RD to follow
--- NOTE | 2017-02-06 14:20 | NUR ---
IN BED WITH EYES CLOSED. RESP EVEN AND UNLABORED. BED ALARM ON. CALL LIGHT IN REACH.
--- NOTE | 2017-02-06 16:22 | NUR ---
FSBS WAS 155 BUT PATIENT DOES NOT WANT SHOT. ATIVAN ADMINISTERED IV BECAUSE OF ANXIETY AND CONTINUING TO TRY TO GET OOB. PRCOET, MILK OG MAG, AND DULCOLAX, AND GABAPENTIN PO. CALL LIGHT IN REACH.
[2017-02-06 16:27] VITALS: BP 97/61
--- NOTE | 2017-02-06 18:29 | NUR ---
NO CHANGES IN INITIAL ASSESSMENT. CALL LIGHT IN REACH. ALARM ON. WILL CONTINUE WITH PLAN OF CARE.
--- NOTE | 2017-02-06 19:00 | NUR ---
REPORT RECEIVED AND CARE OF PT ASSUMED. PT LYING IN SEMI LOZA'S POSITION WATCHING TV AT THIS TIME. RIGHT CVL SALINE LOCKED. WILL MONITOR FOR NEEDS.
[2017-02-06 20:00] VITALS: BP 136/94
--- NOTE | 2017-02-06 20:40 | NUR ---
FSBS 103 THIS CHECK, REQUIRING NO COVERAGE PER SLIDING SCALE. GAVE HS SNACK OF KRISTAL CRACKERS, APPLE JUICE AND FF CHOCOLATE MILK. WILL CONTINUE TO MONITOR FOR NEEDS.
--- NOTE | 2017-02-06 20:44 | NUR ---
HS MEDICATIONS GIVEN TO INLCUDE NICKIEPAR PER PRN ORDER.
--- NOTE | 2017-02-06 22:35 | NUR ---
PT BECOMING VERY RESTLESS AND STUMBLING AROUND ROOM. TRIED TO RE-DIRECT AND SHE BEGAN YELLING AT ME TO LEAVE HER ALONE. GAVE ATIVAN 1 MG IVP PER PRN ORDER. PT CALMER NOW AND LYING IN BED WATCHING TV. SIDE RAILS UP X3 FOR SAFETY.
--- NOTE | 2017-02-07 00:54 | NUR ---
PT RESTING IN SEMI LOZA'S POSITION WITH EYES CLOSED AND UNLABORED BREATHING. BED ALARM IN USE FOR SAFETY.
[2017-02-07 04:00] VITALS: BP 106/62
--- NOTE | 2017-02-07 07:05 | NUR ---
LYING ON LEFT SIDE WITH RESPIRATIONS EVEN AND NON LABORED. CALL LIGHT IN REACH AND USHA MAT ALARM ON. WILL CONTINUE WITH PLAN OF CARE. DOOR OPEN.
--- NOTE | 2017-02-07 08:25 | NUR ---
ATTEMPTED TO ADMINISTER SCHEDULED MEDICATIONS WELL PRN DULCOLAX AND MILK OF MAGNESIA FOR CONSTIPATION SO THAT STOOL SAMPLE COULD BE OBTAINED. PT REFUSES TO TAKE MEDICATIONS AND SPIT MOM OUT. IN BED WITH USHA ALARM ON. CALL LIGHT IN REACH AND DOOR OPEN. WILL CONTINUE WITH PLAN OF CARE.
[2017-02-07 08:35] VITALS: BP 106/78
--- NOTE | 2017-02-07 08:40 | NUR ---
PRN ATIVAN ADMINISTERED FOR AGGITATION AND ANXIETY TO RIGHT SUBCLAVIAN CENTRAL LINE PER ORDER. IN BED WITH USHA ALARM ON. PT CONTINUES TO GET OUT OF BED. ATTEMPTS TO REORIENT PT HAVE FAILED THUS FAR. DOOR OPEN AND SRX3 WITH BED IN LOWEST POSITION AND WHEELS LOCKED. USHA MAT ALARM ON. CALL LIGHT IN REACH, WILL CONTINUE WITH PLAN OF CARE.
--- NOTE | 2017-02-07 09:28 | NUR ---
CONTINUES TO GET OUT OF BED AND BE UNCOOPERATIVE WITH STAFF. PT DECIDED TO SIT IN CHAIR AT THIS TIME. USHA MAT PLACED IN CHAIR FOR FALL PRECAUTIONS. STILL REFUSES TO TAKE MEDICATIONS.
--- NOTE | 2017-02-07 12:20 | NUR ---
ATTEMPTING TO CRAWL OUT OF BED AGAIN. PT BECOMING AGGITATED AND PUSHING ON STAFF. ATTEMPTED TO RE-ORIENT STAFF WITHOUT SUCCESS. PT ASSISTED BACK IN BED AND PRN ATIVAN ADMINISTERED PRE ORDER.
[2017-02-07 12:44] VITALS: BP 107/68
--- NOTE | 2017-02-07 14:00 | NUR ---
SLEEPING AT THIS TIME WITH RESPIRATIONS EVEN AND NON LABORED. USHA MAT ALARM ON AND IN USE. DOOR OPEN AND CALL LIGHT IN REACH, WILL CONTINUE WITH PLAN OF CARE.
[2017-02-07 16:00] VITALS: BP 110/60
--- NOTE | 2017-02-07 16:00 | NUR ---
REMAINS ASLEEP, BUT AROUSABLE AT THIS TIME. CONTINUES TO BE UNCOOPERATIVE WITH FINGER STICK. PT HAS PASSED GAS AT THIS TIME, BUT NO BOWEL MOVEMENT TO DATE. BOWEL SOUNDS ACTIVE AND PT REFUSES TO DRINK MILK OF MAGNESIA. USHA ALARM ON AND DOOR OPEN. WILL CONTINUE WITH PLAN OF CARE.
--- NOTE | 2017-02-07 18:00 | NUR ---
REMAINS IN BED WITH EYES CLOSED AND RESPIRATIONS EVEN AND NON LABORED. REFUSES DINNER.
--- NOTE | 2017-02-07 19:00 | NUR ---
REPORT RECEIVED AND CARE OF PT ASSUMED. PT LYING IN SUPINE POSITION WITH EYES CLOSED. LEFT CVL SALINE LOCKED. BED ALARM IN USE FOR SAFETY. WILL MONITOR FOR NEEDS.
--- NOTE | 2017-02-07 21:05 | NUR ---
HS MEDICATIONS GIVEN. PT REFUSED TO HAVE FSBS PERFORMED....YELLING AND SLAPPING. WILL CONTINUE TO MONITOR FOR NEEDS. BED ALARM IN USE.
--- NOTE | 2017-02-07 21:15 | NUR ---
ALL LINENS AND GOWN CHAGED DUE TO URINE INCONTINENCE. POSITIONED FOR COMFORT. BED ALARM RE-ACTIVATED. WILL CONTINUE TO MONITOR FOR NEEDS.
--- NOTE | 2017-02-08 00:22 | NUR ---
PT CLIMBING OVER RAIL AND SLAPPING AT THIS NURSE FOR TRYING TO KEEP HER FROM FALLING. GAVE ATIVAN 1 MG IVP PER PRN ORDER. WILL MONITOR FOR EFFECTIVENESS.
--- NOTE | 2017-02-08 03:47 | NUR ---
PT BATHED AND ALL LINENS AND GOWN CHANGED.
[2017-02-08 05:33] LABS: BASOPHILS 0.3 % (0-2); EOSINOPHILS 0.3 % (0-7); HEMATOCRIT 37.4 % (36.0-48.0); IMMATURE GRANULOCYTES 0.3 % (0-5); LYMPHOCYTES 41.9 % (15-50); MCH 29.1 pg (26.0-34.0); MCHC 32.1 g/dL (31.0-37.0); MCV 90.6 fL (80.0-100.0); MEAN PLATELET VOLUME 11.3 fL (7.4-10.4); MONOCYTES 0.7 % (2-11); NEUTROPHILS 56.5 % (40-80); PLATELET COUNT 131 10x3/uL (130-400); RBC 4.13 10x6/uL (4.00-5.40); WBC 2.9 10x3/uL (4.8-10.8)
[2017-02-08 05:46] LABS: CALC OSMOLALITY 284 mosm/kg (275-300); CALCIUM 9.8 mg/dL (8.5-10.1); CARBON DIOXIDE 24.9 mmol/L (21.0-32.0); CHLORIDE - SERUM 108 mmol/L (98-107); CREATININE - SERUM 0.9 mg/dL (0.6-1.3); POTASSIUM - SERUM 5.3 mmol/L (3.5-5.1); SODIUM 141 mmol/L (136-145); UREA NITROGEN 15 mg/dL (7-18); eGFR NON AFRICAN AMERICAN 76 mL/min (90-120)
[2017-02-08 05:50] LABS: GLUCOSE 151 mg/dL (74-106)
--- NOTE | 2017-02-08 07:30 | NUR ---
RECIEVED PT DURING WALKING ROUNDS. PT LAYING IN BED WITH NO VISABLE SIGNS OF DISTRESS NOTED. ASSESSMENT DONE PER FLOWSHEET. BED IN LOW POSITION AND CALL LIGHT WITHIN REACH. WILL CONTINUE TO MONITOR.
[2017-02-08 09:02] VITALS: BP 130/100
--- NOTE | 2017-02-08 09:25 | NUR ---
PT REFUSED TO TAKE MEDICATION AT THIS TIME, STARTED GRABBING AND SQUEEZING THIS NURSES ARM THEN GRABBED BREAKFAST TRAY AND BEGIN TO DENTIST PRIVATE PRACTICE ITEMS AND ATTEMPT TO THROW THEM. ATIVAN GIVEN PER ORDER. BED IN LOW POSITION AND CALL LIGHT WITHIN REACH. WILL CONTINUE TO MONITOR.
--- NOTE | 2017-02-08 19:00 | NUR ---
REPORT RECEIVED AND CARE OF PT ASSUMED. PT LYING IN SUPINE POSITION WITH EYES CLOSED AND UNLABORED BREATHING. RIGHT CVL SALINE LOCKED.
[2017-02-08 20:00] VITALS: BP 131/79
--- NOTE | 2017-02-08 20:45 | NUR ---
HS MEDICATIONS GIVEN. HS SNACK OF MILK AND KRISTAL CRACKERS ARE AT BEDSIDE.
[2017-02-09] VITALS: BP 105/61
--- NOTE | 2017-02-09 00:14 | NUR ---
PT CLIMBING OVER BEDRAIL AND YELLING WHEN ATTEMPTS TO RE-DIRECT ARE MADE. GAVE ATIVAN 1 MG IVP PER ORDER FOR AGGITATION. WILL MONITOR FOR EFFECTIVENESS.
[2017-02-09 04:50] LABS: BASOPHILS 0 % (0-2); EOSINOPHILS 1.6 % (0-7); HEMATOCRIT 38.7 % (36.0-48.0); HEMOGLOBIN 12.7 g/dL (12-16); IMMATURE GRANULOCYTES 0.8 % (0-5); LYMPHOCYTES 50.2 % (15-50); MCH 29.7 pg (26.0-34.0); MCHC 32.8 g/dL (31.0-37.0); MCV 90.4 fL (80.0-100.0); MEAN PLATELET VOLUME 10.8 fL (7.4-10.4); NEUTROPHILS 43.4 % (40-80); PLATELET COUNT 118 10x3/uL (130-400); RBC 4.28 10x6/uL (4.00-5.40); RDW 15.2 % (11.5-14.5); WBC 2.5 10x3/uL (4.8-10.8)
[2017-02-09 05:01] VITALS: BP 105/61
[2017-02-09 05:08] LABS: CALC OSMOLALITY 288 mosm/kg (275-300); CALCIUM 9.2 mg/dL (8.5-10.1); CARBON DIOXIDE 25.6 mmol/L (21.0-32.0); CHLORIDE - SERUM 109 mmol/L (98-107); CREATININE - SERUM 0.9 mg/dL (0.6-1.3); GLUCOSE 109 mg/dL (74-106); SODIUM 144 mmol/L (136-145); UREA NITROGEN 16 mg/dL (7-18); eGFR NON AFRICAN AMERICAN 76 mL/min (90-120)
[2017-02-09 05:09] LABS: POTASSIUM - SERUM 4.1 mmol/L (3.5-5.1)
--- NOTE | 2017-02-09 07:55 | NUR ---
SLEEPING, AROUSES TO VOICE, REFUSES MEDICATIONS, CALL LIGHT IN REACH, BED LOWEST POSITION, WILL CONTINUE TO MONITOR
[2017-02-09 08:48] VITALS: BP 112/58
--- NOTE | 2017-02-09 10:52 | NUR ---
Called [facility] neurology dept. ([phone]) to see if they are seeing patient for neurosarcoidosis, the person we spoke with stated that the patient has a follow up appointment at the end of the month, but would not state for what. Dr Golver's office notified spoke with DUDLEY.
--- NOTE | 2017-02-09 12:15 | NUR ---
RESTING QUIELTY WITH EYES CLOSED. NO NEEDS NOTED.
[2017-02-09 12:36] VITALS: BP 115/60
--- NOTE | 2017-02-09 20:00 | NUR ---
ASSESSMENT PER FLOWSHEET. EYES CLOSED RESPIRATIONS WITH EASE AND UNLABORED. IV PATENT RT TLSC SALINE LOCKED X3 PORTS. PT CONFUSED WITH GARBLED SPEECH WHEN AROUSED. PT STARTS SWINGING BOTH ARMS WHEN ATTEMPTS MADE TO AWAKE PATIENT OR TO GIVE HER FLUIDS PO.
--- NOTE | 2017-02-09 21:15 | NUR ---
TO RADIOLOGY PER BED FOR CT HEAD SCAN.
--- NOTE | 2017-02-09 21:45 | NUR ---
RETURNED TO ROOM PER BED. AROUSES TO VERBAL STIMULI. ATTEMPTS MADE TO GIVE PATIENT HER HS MEDS TOOK HER DILANTIN WITH APPLE JUICE REFUSED TO TAKE HER NEURONTIN SPIT IT OUT. STARTED TRYING TO SWING HER ARMS AT NURSE WHEN ATTEMPTS MADE TO GIVE PT JUICE OR MEDS.
[2017-02-09 22:27] VITALS: BP 111/72
[2017-02-09 23:00] VITALS: BP 112/77
[2017-02-10] VITALS (10 sets, daily range): BP systolic 99–114; BP diastolic 63–758
--- NOTE | 2017-02-10 00:03 | NUR ---
EYES CLOSED RESPIRATIONS WITH EASE AND UNLABORED. USHA BED ALARM MAT ON AND ACTIVATED. DOOR OPENED. SR UP X3. CALL LIGHT WITHIN REACH.
--- NOTE | 2017-02-10 04:00 | NUR ---
EYES CLOSED RESPIRATIONS WITH EASE AND UNLABORED. INC URINE. LINENS CHANGED.
[2017-02-10 05:19] LABS: ANION GAP 12.8 mmol/L (8-16); CALCIUM 9.3 mg/dL (8.5-10.1); CARBON DIOXIDE 25.2 mmol/L (21.0-32.0)
[2017-02-10 05:27] LABS: BASOPHILS 0 % (0-2); EOSINOPHILS 1.7 % (0-7); HEMATOCRIT 40.4 % (36.0-48.0); HEMOGLOBIN 12.7 g/dL (12-16); IMMATURE GRANULOCYTES 1.1 % (0-5); LYMPHOCYTES 27.4 % (15-50); MCH 28.8 pg (26.0-34.0); MCHC 31.4 g/dL (31.0-37.0); MCV 91.6 fL (80.0-100.0); MEAN PLATELET VOLUME 11.5 fL (7.4-10.4); MONOCYTES 5.1 % (2-11); NEUTROPHILS 64.7 % (40-80); PLATELET COUNT 114 10x3/uL (130-400); RBC 4.41 10x6/uL (4.00-5.40); RDW 15.7 % (11.5-14.5)
[2017-02-10 05:28] LABS: WBC 1.8 10x3/uL (4.8-10.8)
--- NOTE | 2017-02-10 05:38 | NUR ---
MYMR=[id number] NO COVERAGE GIVEN PT REFUSES TO OPEN HER MOUTH FOR HER SYNTHROID MED HELD. SR UP X3 CALL LIGHT WITHIN REACH USHA BED ALARM MAT ON AND ACTIVATED.
--- NOTE | 2017-02-10 07:30 | NUR ---
RECIEVED PT DURING WALKING ROUNDS. PT RESTING IN BED WITH NO VISABLE SIGNS OF PAIN OR DISCOMFORT AT THIS TIME. PT WILL NOT RESPOND TO VERBAL STIMULATION BUT WILL RESPOND TO TOUCH. ASSESSMENT DONE PER FLOWSHEET. BED IN LOW POSITION AND CALL LIGHT WITHIN REACH. WILL CONTINUE TO MONITOR.
--- NOTE | 2017-02-10 10:20 | NUR ---
PTS MOM AT BEDSIDE AT THIS TIME AND WAS ABLE TO GET PT TO TAKE MEDICATION. REVIEWED PTS MED LIST WITH MOM AND PLACED PHONE CALL TO . RECIEVED ORDERS AT THIS TIME TO CHANGE PTS MEDICATION TO IV. INFORMED MOM OF THIS. BED IN LOW POSITION AND CALL LIGHT WITHIN REACH. WILL CONTINUE TO MONITOR.
--- NOTE | 2017-02-10 10:31 | NUR ---
YANCY spoke with mom in room at bedside along with Maritza Nettles RN. Mom stated that this is not normal for Patient and asked if patient has had her prednisone Maritza is going over her med list again and calling Dr Glover. CM will continue to follow and assist with discharge planning needs.
--- NOTE | 2017-02-10 16:30 | NUR ---
RR TO 2219. REFER TO RR SHEET.
--- NOTE | 2017-02-10 16:45 | NUR ---
RAPID RESPONSE CALLED FOR RAPID RESPIRATIONS AND CHANGE IN LOC. REFER TO ICU NOTES. PT TRANSFERED TO ICU
--- NOTE | 2017-02-10 17:00 | NUR ---
RECIEVED PT TO ROOM FROM [facility]. ATTACHED PT TO ICU MONITORS.
--- NOTE | 2017-02-10 17:02 | NUR ---
BLANKET WARMER PLACED ON PT FOR RECTAL TEMP OF 89F.
[2017-02-10 17:21] LABS: BASOPHILS 0 % (0-2); EOSINOPHILS 0.5 % (0-7); HEMATOCRIT 41.3 % (36.0-48.0); HEMOGLOBIN 13.1 g/dL (12-16); IMMATURE GRANULOCYTES 0.5 % (0-5); MCH 29.2 pg (26.0-34.0); MCHC 31.7 g/dL (31.0-37.0); MEAN PLATELET VOLUME 11.8 fL (7.4-10.4); MONOCYTES 4.7 % (2-11); NEUTROPHILS 64.3 % (40-80); PLATELET COUNT 117 10x3/uL (130-400); RBC 4.49 10x6/uL (4.00-5.40); RDW 15.7 % (11.5-14.5)
--- NOTE | 2017-02-10 17:36 | NUR ---
MONTY'S RECIEVE. DR. URBANO AT BEDSIDE TO INTUBATE.
[2017-02-10 17:37] LABS: WBC 1.9 10x3/uL (4.8-10.8)
[2017-02-10 17:51] LABS: UDS - AMPHET NEGATIVE QUAL (NEGATIVE); UDS - BARB NEGATIVE QUAL (NEGATIVE); UDS - BENZO NEGATIVE QUAL (NEGATIVE); UDS - COCAINE NEGATIVE QUAL (NEGATIVE); UDS - OPIATE NEGATIVE QUAL (NEGATIVE); UDS - PCP NEGATIVE QUAL (NEGATIVE); UDS - THC NEGATIVE QUAL (NEGATIVE)
[2017-02-10 17:54] LABS: ALBUMIN 3.3 g/dL (3.4-5.0); ANION GAP 12.8 mmol/L (8-16); BILIRUBIN - TOTAL 0.2 mg/dL (0.2-1.3); CARBON DIOXIDE 24.3 mmol/L (21.0-32.0); POTASSIUM - SERUM 4.1 mmol/L (3.5-5.1)
[2017-02-10 18:16] LABS: D-DIMER-QUANTITATIVE 2.91 ug/mLFEU (0.20-0.54)
--- NOTE | 2017-02-10 18:20 | NUR ---
PT ORALLY INTUABTED TO VENITILATOR. REFER TO VENT FLOWSHEET. BLANKET WARMER REMIANS ON PT FOR RECTAL TEMP OF 89F.
--- NOTE | 2017-02-10 19:30 | NUR ---
REPORT RECIEVED. ASSESSMENT COMPLETED. SEE FLOW SHEET FOR DETAILS. PT POSITIONED FOR COMFORT. BEAR HUGGER TURNED OFF ORAL TEMP 97.7. WILL CONTINUE TO MONITOR PT.
--- NOTE | 2017-02-10 21:00 | NUR ---
PT BOYFRIEND AT BED SIDE. UPDATE GIVEN. WILL CONTINUE TO MONITOR PT.
--- NOTE | 2017-02-10 23:00 | NUR ---
REASSESSMENT COMPLETD AT THIS TIME. NO ACUTE CHANGES AT THIS TIME. PT BATHED AND PROVIDED CLEAN LINENS. PT POSITIONED FOR COMFORT WILL CONTINUE TO MONITOR.
[2017-02-11] VITALS (40 sets, daily range): BP systolic 80–113; BP diastolic 43–85
--- NOTE | 2017-02-11 01:00 | NUR ---
PT SHOWS NO SIGNS OF DISTRESS. REPOSITIONED FOR COMFORT WILL CONTINUE TO MONITOR.
[2017-02-11 01:47] LABS: UDS - AMPHET NEGATIVE QUAL (NEGATIVE); UDS - BARB NEGATIVE QUAL (NEGATIVE); UDS - BENZO NEGATIVE QUAL (NEGATIVE); UDS - COCAINE NEGATIVE QUAL (NEGATIVE); UDS - OPIATE NEGATIVE QUAL (NEGATIVE); UDS - PCP NEGATIVE QUAL (NEGATIVE); UDS - THC NEGATIVE QUAL (NEGATIVE)
--- NOTE | 2017-02-11 03:00 | NUR ---
REASSESSMENT COMPLETED. SEE FLOW SHEET FOR DETAILS. PT POSITIONED FOR COMFORT WILL CONTINUE TO MONITOR.
--- NOTE | 2017-02-11 05:00 | NUR ---
PT RESTING WITH NO SIGNS DISTRESS, WILL CONTINUE TO MONITOR.
[2017-02-11 05:03] LABS: BASOPHILS 0 % (0-2); EOSINOPHILS 0 % (0-7); HEMATOCRIT 39.2 % (36.0-48.0); HEMOGLOBIN 12.8 g/dL (12-16); IMMATURE GRANULOCYTES 0.4 % (0-5); LYMPHOCYTES 21.8 % (15-50); MCH 29.8 pg (26.0-34.0); MCHC 32.7 g/dL (31.0-37.0); MCV 91.2 fL (80.0-100.0); MEAN PLATELET VOLUME 11.8 fL (7.4-10.4); MONOCYTES 4.2 % (2-11); NEUTROPHILS 73.6 % (40-80); PLATELET COUNT 122 10x3/uL (130-400)
[2017-02-11 05:05] LABS: WBC 2.6 10x3/uL (4.8-10.8)
[2017-02-11 05:37] LABS: ALBUMIN 2.8 g/dL (3.4-5.0); ANION GAP 18.2 mmol/L (8-16); BILIRUBIN - TOTAL 0.3 mg/dL (0.2-1.3); CALCIUM 8.6 mg/dL (8.5-10.1); CARBON DIOXIDE 19.1 mmol/L (21.0-32.0); CREATININE - SERUM 1.4 mg/dL (0.6-1.3); POTASSIUM - SERUM 4.3 mmol/L (3.5-5.1); PROTEIN - SERUM 7.4 g/dL (6.4-8.2)
--- NOTE | 2017-02-11 09:54 | NUR ---
SPOKE WITH DR. MORGAN ABOUT BP BEING LOW. ORDERED CVP CHECK. IF CVP IS LESS THAN 8 TO GIVE 250 BOLUS. THEN IF CONTINUES LOW GIVE ANOTHER 250 BOLUS.
--- NOTE | 2017-02-11 09:58 | NUR ---
CVP 6 AT THIS TIME. WILL GIVE 250ML BOLUS PER ORDERS.
--- NOTE | 2017-02-11 10:53 | NUR ---
DR. MROGAN ORDERED TO CONTINUE FLUID BOLUS OF 250 TO MAINTAIN BP ABOVE 90.
--- NOTE | 2017-02-11 11:12 | NUR ---
SEDATION RESTARTED PT GETTING AGITATED. STARTED AT 5MCG/KG/MIN. INCREASED TO 10MCG/KG/MIN AT THIS TIME. PUPILS 4MM VERY SLUGISH REACTION NOTED. EYES ARE EDEMETOUS AND BULGING. BP STILL LOW. CURRENTLY INFUSING NS BOLUS.
--- NOTE | 2017-02-11 12:07 | NUR ---
BLOOD GLUCOSE OF 152. 4 UNITS OF HUMALOG GIVEN PER SLIDING SCALE. BP AT THIS TIME 89/54 MAP 67, HR 96, O2 SAT 98%. WILL CONTINUE TO MONITOR.
--- NOTE | 2017-02-11 12:21 | NUR ---
HAVE INFUSED 3 BOLUS OF 250NS PER DR. BAUTISTA ORDERS. 4TH BOLUS INFUSING AT THIS TIME. BP STILL LOW 81/54 MAP 63. PROPOFOL INCREASE TO 15 MCG/KG/MIN. WILL CONTINUE TO MONITOR CLOSELY.
--- NOTE | 2017-02-11 12:37 | NUR ---
SPOKE WITH DR. MORGAN ABOUT BP REMAINING LOW. HE SAID TO CONTINUE TONG TO HELP RAISE IT UP.
--- NOTE | 2017-02-11 12:49 | NUR ---
NUTRITION F/U CHART REVIEWED. PT NOW INTUBATED. ASSESSED AT NUTRITIONAL RISK R/T DX, PMH AEB VENT STATUS WITH NO CURRENT NUTRITION SUPPORT. NUTRITIONAL NEEDS EST AT [id number] KCAL, 62-74 GM PROTEIN PER DAY USING IBW. TUBE FEEDS STARTED PER MD CONSULT. PULMOCARE WITH GOAL RATE 40 CC/HR TO PROVIDE 1440 KCAL, 60 GM PROTEIN PER DAY. DIPRIVAN @ 9 CC/HR PROVIDING ADDITIONAL [address] FOLLOWING
--- NOTE | 2017-02-11 19:05 | NUR ---
PAGE PHYSICIAN PHYSICIAN INTERNIST. PT SBP CONSISTENTLY IN 80'S TODAY. HAS BEEN GIVEN MULTIPLE BOLUS OF NS. VERY LITTLE IMPROVEMENT. SPOKE WITH DR PETERSON. WANTS DOPAMINE STARTED. NS AT 150. REVIEWED HGB AND I&O VALUES.
--- NOTE | 2017-02-11 19:30 | NUR ---
REPORT RECIEVED. ASSESSMENT COMPLETED. SEE FLOW SHEET FOR FURTHER DETAILS. PT BP IS SYS 80'S ORDERED DOPAMINE INITIAL RATE OF 2 MCG/KG/MIN. WILL CONTINUE TO MONITOR PT AND BP.
--- NOTE | 2017-02-11 21:07 | NUR ---
NO VISITORS AT THIS TIME. PT POSITIONED FOR COMFORT WILL CONTINUE TO MONITOR PT.
--- NOTE | 2017-02-11 23:05 | NUR ---
REASSESSMENT COMPLETED AT THIS TIME. NO ACUTE CHANGES. SEE FLOW SHEET FOR FURTHER DETAILS. WILL CONTINUE TO MONITOR PT.
[2017-02-12] VITALS (95 sets, daily range): BP systolic 91–110; BP diastolic 48–77
--- NOTE | 2017-02-12 01:00 | NUR ---
PT SEDATED ON VENT. ORAL CARE DONE. REPOSITIONED FOR COMFORT. WILL CONTINUE TO MONITOR.
--- NOTE | 2017-02-12 03:00 | NUR ---
REASSESSMENT COMPLETED. NO CHANGES AT THIS TIME. PT POSITIONED FOR COMFORT WILL CONTINUE TO MONITOR PT.
[2017-02-12 04:47] LABS: BASOPHILS 0.2 % (0-2); EOSINOPHILS 0 % (0-7); HEMATOCRIT 34.3 % (36.0-48.0); HEMOGLOBIN 11.2 g/dL (12-16); IMMATURE GRANULOCYTES 0.9 % (0-5); LYMPHOCYTES 20.1 % (15-50); MCH 29.4 pg (26.0-34.0); MCHC 32.7 g/dL (31.0-37.0); MEAN PLATELET VOLUME 11.5 fL (7.4-10.4); MONOCYTES 3.8 % (2-11); PLATELET COUNT 131 10x3/uL (130-400); RBC 3.81 10x6/uL (4.00-5.40); RDW 16.3 % (11.5-14.5); WBC 5.6 10x3/uL (4.8-10.8)
--- NOTE | 2017-02-12 05:00 | NUR ---
PT SEDATED ON VENT ORAL CARE DONE. PT POSITIONED FOR COMFORT WILL CONTINUE TO MONITOR PT.
[2017-02-12 05:11] LABS: ALBUMIN 2.4 g/dL (3.4-5.0); BILIRUBIN - TOTAL 0.3 mg/dL (0.2-1.3); CALCIUM 8.2 mg/dL (8.5-10.1); CREATININE - SERUM 1.5 mg/dL (0.6-1.3); POTASSIUM - SERUM 4.1 mmol/L (3.5-5.1); PROTEIN - SERUM 6.8 g/dL (6.4-8.2)
[2017-02-12 05:14] LABS: ANION GAP 16.1 mmol/L (8-16)
--- NOTE | 2017-02-12 18:15 | NUR ---
PT HAD COMPLETE BATH AND LINEN CHANGE. TOLERATED WELL. DUARTE CARE GIVEN WITH SURE STEP DUARTE WIPES. PT HAS VERY SMALL 1CM SKIN SHEAR SPOT TO LEFT BUTTOCK THAT IS DRAINING SMALL AMOUNT OF SEROSANG FLUID.
--- NOTE | 2017-02-12 19:00 | NUR ---
REPORT RECEIVED AND ASSESSMENT COMPLETED. SEE FLOWSHEET FOR FULL DETAILS.
--- NOTE | 2017-02-12 19:28 | NUR ---
VANC TROUGH WAS 25.1 SO DECREASED VANCOMYCIN DOSE FROM 1GM Q12HRS TO 750MG IVPB Q12HRS
--- NOTE | 2017-02-12 21:00 | NUR ---
2100 MEDS GIVEN. PT REPOSITIONED. WILL CONTINUE TO MONITOR
--- NOTE | 2017-02-12 23:00 | NUR ---
REASSESSMENT COMPLETED. SEE FLOWSHEET FOR FULL DETAILS. NO OTHER CHANGES IN STATUS AT THIS TIME. VSS. WILL CONTINUE TO MONITOR
[2017-02-13] VITALS (44 sets, daily range): BP systolic 92–123; BP diastolic 57–89
--- NOTE | 2017-02-13 01:00 | NUR ---
FSBS 332. 12 UNITS GIVEN WILL RECHECK AT 0400
--- NOTE | 2017-02-13 03:00 | NUR ---
RADIOLOGY AT BEDSIDE. AM IMAGING COMPLETED. NO OTHER CHANGES AT THIS TIME. VSS. WILL CONTINUE TO MONITOR
--- NOTE | 2017-02-13 05:00 | NUR ---
ABG'S DRAWN BY RESPIRATORY. GLUCOSE 169 AT THIS TIME. WILL TREAT ORDERED. NO OTHER CHANGES IN STATUS AT THIS TIME. VSS. WILL MONITOR
[2017-02-13 06:25] LABS: BASOPHILS 0.2 % (0-2); EOSINOPHILS 0 % (0-7); HEMOGLOBIN 10.5 g/dL (12-16); IMMATURE GRANULOCYTES 0.6 % (0-5); LYMPHOCYTES 14.7 % (15-50); MCH 28.7 pg (26.0-34.0); MCHC 31.8 g/dL (31.0-37.0); MCV 90.2 fL (80.0-100.0); MEAN PLATELET VOLUME 11.4 fL (7.4-10.4); MONOCYTES 14.9 % (2-11); NEUTROPHILS 69.6 % (40-80); PLATELET COUNT 124 10x3/uL (130-400); RBC 3.66 10x6/uL (4.00-5.40); RDW 16.7 % (11.5-14.5); WBC 6.5 10x3/uL (4.8-10.8)
[2017-02-13 06:34] LABS: ALBUMIN 2.3 g/dL (3.4-5.0); BILIRUBIN - TOTAL 0.2 mg/dL (0.2-1.3); CARBON DIOXIDE 18.9 mmol/L (21.0-32.0); CREATININE - SERUM 1.7 mg/dL (0.6-1.3); POTASSIUM - SERUM 4.2 mmol/L (3.5-5.1); PROTEIN - SERUM 6.8 g/dL (6.4-8.2)
[2017-02-13 06:37] LABS: ANION GAP 17.3 mmol/L (8-16)
--- NOTE | 2017-02-13 09:54 | NUR ---
NUTRITION F/U CHART REVIEWED. SPOKE WITH NURSING. PT IN ISOLATION. PULMOCARE @ 30 CC/HR WITH GOAL RATE 40 CC/HR. CONTINUES SEDATION WITH DIPRIVAN. WILL CONTINUE TO MONITOR TUBE FEED ADVANCEMENT, PT PROGRESS. RD FOLLOWING
--- NOTE | 2017-02-13 19:00 | NUR ---
REPORT RECIEVED, SHIFT ASSESSMENT COMPLETE, PLEASE SEE FLOW SHEETS FOR DETAILS. ON VENT-SEE FLOW SHEETS FOR SETTINGS. STIFFENTS TO TACTILE STIMULI. ORAL CARE AND TURNING PROVIDED. BED LOW AND LOCKED. VSS, WILL CPOC.
--- NOTE | 2017-02-13 20:56 | NUR ---
ORAL CARE AND TURNING PROVIDED. PT BITING TUBING DURING ORAL CARE. VSS ATT. BED LOW AND LOCKED, RESTRAINTS CHECKED. WILL CPOC.
--- NOTE | 2017-02-13 23:00 | NUR ---
REASSESSMENT COMPLETE, PLEASE SEE FLOW SHEETS FOR DETAILS. ORAL CARE AND TURNING PROVIDED. TRYING TO BITE ORAL CARE STICKS. VSS, BED LOW AND LOCKED, RESTRAITNS CHECKED. WILL CPOC.
[2017-02-14] VITALS (48 sets, daily range): BP systolic 92–125; BP diastolic 57–89
--- NOTE | 2017-02-14 01:00 | NUR ---
ORAL CARE AND TURNING PROVIDED. VSS, BED LOW AND LOCKED, RESTRAINTS CHECKED. WILL CPOC.
--- NOTE | 2017-02-14 02:38 | NUR ---
REASSESSMENT COMPLETE, PLEASE SEE FLOW SHEETS FOR DETAILS. ORAL CARE AND TURNING PROVIDED. VSS, BED LOW AND LOCKED AND RESTRAINTS CHECKED. WILL CPOC.
--- NOTE | 2017-02-14 05:00 | NUR ---
DUARTE CARE PROVIDED. ORAL CARE AND TURNING ALSO PROVIDED. NO S&S OF DISTRESS/PAIN. VSS, BED LOW AND LOCKED, CALL LIGHT IN REACH. WILL CPOC.
[2017-02-14 05:24] LABS: HEMATOCRIT 30.6 % (36.0-48.0); HEMOGLOBIN 9.8 g/dL (12-16); MCH 28.8 pg (26.0-34.0); MEAN PLATELET VOLUME 11.1 fL (7.4-10.4); PLATELET COUNT 132 10x3/uL (130-400); RDW 16.7 % (11.5-14.5); WBC 9.6 10x3/uL (4.8-10.8)
[2017-02-14 05:36] LABS: EOSINOPHILS 1 % (0-7); LYMPHOCYTES 22 % (15-50); MONOCYTES 7 % (2-11); NEUTROPHILS 67 % (40-80); PLATELET ESTIMATE NORMAL
[2017-02-14 05:47] LABS: ALBUMIN 2.2 g/dL (3.4-5.0); ANION GAP 17.2 mmol/L (8-16); BILIRUBIN - TOTAL 0.2 mg/dL (0.2-1.3); CALCIUM 7.6 mg/dL (8.5-10.1); CARBON DIOXIDE 18.9 mmol/L (21.0-32.0); CREATININE - SERUM 1.6 mg/dL (0.6-1.3); POTASSIUM - SERUM 4.1 mmol/L (3.5-5.1); PROTEIN - SERUM 6.8 g/dL (6.4-8.2)
--- NOTE | 2017-02-14 19:00 | NUR ---
REPORT RECIEVED, SHIFT ASSESSMENT COMPLETE, PLEASE SEE FLOW SHEETS FOR DETAILS. ORAL CARE AND TURNING PROVIDED. VSS, BED LOW AND LOCKED, RESTRAINTS CHECKED. WILL CPOC.
--- NOTE | 2017-02-14 20:55 | NUR ---
ORAL CARE AND TURNING PROVIDED. STIFFENS UPON TURNING, POSSIBLE A YAWN POST TURN. JAW TIGHT, WOULD NOT OPEN FOR GOOD TEETH BRUSHING, OUTER SIDE OF TEETH BRUSHED WELL AND MOISTUREIZER APPLIED. VSS ATT, BED LOW AND LOCKED. RESTRAINTS CHECKED AND HANDS ELEVATED. WILL CPOC.
--- NOTE | 2017-02-14 22:53 | NUR ---
REASSESSMENT COMPLETE, PLEASE SEE FLOW SHEETS FOR DETAILS. ORAL CARE AND TURNING PROVIDED. SAME REACTIONS TO TURNING AND ORAL CARE NOTED. NO S&S OF PAIN NOTED, JUST WITHDRAWING FROM TOUCH AND ANY STIMULI. VSS ATT, BED LOW AND LOCKED AND RESTRAINTS CHECKED. WILL CPOC.
[2017-02-15] VITALS (62 sets, daily range): BP systolic 90–116; BP diastolic 54–696
--- NOTE | 2017-02-15 01:00 | NUR ---
ORAL CARE AND TURNING PROVIDED. VSS, BED LOW AND LOCKED, CALL LIGHT IN REACH. WILL CPOC.
--- NOTE | 2017-02-15 02:28 | NUR ---
DUARTE CARE PROVIDED. TUBE FEEDING RESIDUAL CHECKED AND 5ML RETURNED. TUBE FEEDING BAG SET CHANGED ATT. TOLERATED WELL. VSS, BED LOW AND LOCKED, CALL LIGHT IN REACH. WILL CPOC.
--- NOTE | 2017-02-15 03:00 | NUR ---
REASSESSMENT COMPLETE, PLEASE SEE FLOW SHEETS FOR DETAILS. ORAL CARE AND TURNING PROVIDED. TOLERATED WELL. VSS, BED LOW AND LOCKED, RESTRAINTS CHECKED. WILL CPOC.
[2017-02-15 04:41] LABS: BASOPHILS 0.3 % (0-2); EOSINOPHILS 0.1 % (0-7); HEMATOCRIT 28.7 % (36.0-48.0); HEMOGLOBIN 9.1 g/dL (12-16); IMMATURE GRANULOCYTES 5.2 % (0-5); LYMPHOCYTES 24.8 % (15-50); MCH 28.3 pg (26.0-34.0); MCHC 31.7 g/dL (31.0-37.0); MCV 89.1 fL (80.0-100.0); MEAN PLATELET VOLUME 11.4 fL (7.4-10.4); MONOCYTES 28.8 % (2-11); NEUTROPHILS 40.8 % (40-80); PLATELET COUNT 122 10x3/uL (130-400); RBC 3.22 10x6/uL (4.00-5.40); RDW 16.2 % (11.5-14.5); WBC 9.2 10x3/uL (4.8-10.8)
[2017-02-15 04:57] LABS: ALBUMIN 2.3 g/dL (3.4-5.0); ANION GAP 14.1 mmol/L (8-16); BILIRUBIN - TOTAL 0.15 mg/dL (0.2-1.3); CALCIUM 8.1 mg/dL (8.5-10.1); CARBON DIOXIDE 22.5 mmol/L (21.0-32.0); CREATININE - SERUM 1.3 mg/dL (0.6-1.3); POTASSIUM - SERUM 3.6 mmol/L (3.5-5.1); PROTEIN - SERUM 6.6 g/dL (6.4-8.2)
--- NOTE | 2017-02-15 05:00 | NUR ---
Oral care and turning provided. VSS, bed low and locked, call light in reach. Will CPOC.
--- NOTE | 2017-02-15 07:30 | NUR ---
SEDATION VACATION DONE FOR ASSESSMENT. DIPRIVAN DECREASED TO 8.3 MCG/KG/MIN FOR WEANING PROCESS TODAY. SIMV 8.
--- NOTE | 2017-02-15 10:05 | NUR ---
PLACED ON CPAP.
--- NOTE | 2017-02-15 12:00 | NUR ---
DR. MORGAN HERE. GIOVANNY MENSAH.
--- NOTE | 2017-02-15 13:45 | NUR ---
WITH SEDATION OFF AROUSES TO VERBAL STIMULI. FOLLOWS COMMANDS. NODS HEAD TO SIMPLE QUESTIONS. PLACED BACK ON DIPRIVAN AT 13MCG/KG/MIN. BACK ON SIMV 14.
--- NOTE | 2017-02-15 19:00 | NUR ---
REPORT RECIEVED, SHIFT ASSESSMENT COMPLETE, PLEASE SEE FLOW SHEETS FOR DETAILS. ORAL CARE AND TURNING PROVIDED. TOLERATED WELL AND DID STIFFEN UP TO STIMULI, SLIGHTLY OPENED EYES. VSS ATT, BED LOW AND LOCKED, RESTRAINTS CHECKED. WILL CPOC.
--- NOTE | 2017-02-15 20:11 | NUR ---
RESIDUAL CHECKED, 60ML RETURNED.
--- NOTE | 2017-02-15 21:00 | NUR ---
ORAL CARE ADN TURNING PROVIDED. OPENED EYES AND WITHDRAWS FROM ORAL CARE AND STIFFENS DURING TURNING. BP SLIGHTLY LOW, WILL MONITOR AND CHANGE RATE IF NEEDED. VSS OTHERWISE, WILL CPOC.
--- NOTE | 2017-02-15 22:38 | NUR ---
REASSESSMENT COMPLETE, PLEASE SEE FLOW SHEETS FOR DETAILS. ORAL CARE AND TURNING PROVIDED. TITRATING DOPAMINE PRN PER ORDERS. TURNS HEAD AWAY WHEN CHECKING PUPILS. BED LOW AND LOCKED, RESTRAINTS CHECKED. VSS, WILL CPOC.
[2017-02-16] VITALS (61 sets, daily range): BP systolic 96–120; BP diastolic 56–86
--- NOTE | 2017-02-16 00:48 | NUR ---
ORAL CARE AND TURNING PROVIDED. VSS, BED LOW AND LOCKED, RESTRAINTS CHECKED. WILL CPOC.
--- NOTE | 2017-02-16 03:00 | NUR ---
REASSESSMENT COMPLETE, PLEASE SEE FLOW SHEETS FOR DETAILS. ORAL CARE AND TURNING PROVIDED. BED LOW AND LOCKED, RESTRAINTS CHECKED. VSS, WILL CPOC.
[2017-02-16 04:12] LABS: BASOPHILS 0.6 % (0-2); EOSINOPHILS 0.1 % (0-7); HEMATOCRIT 30.4 % (36.0-48.0); HEMOGLOBIN 10.1 g/dL (12-16); IMMATURE GRANULOCYTES 10.5 % (0-5); MCH 29.5 pg (26.0-34.0); MCHC 33.2 g/dL (31.0-37.0); MCV 88.9 fL (80.0-100.0); MEAN PLATELET VOLUME 12.5 fL (7.4-10.4); MONOCYTES 21.4 % (2-11); NEUTROPHILS 47.4 % (40-80); RBC 3.42 10x6/uL (4.00-5.40)
[2017-02-16 04:14] LABS: PLATELET COUNT 155 10x3/uL (130-400)
[2017-02-16 04:19] LABS: ANION GAP 16.9 mmol/L (8-16); CALCIUM 8.2 mg/dL (8.5-10.1); CARBON DIOXIDE 21.9 mmol/L (21.0-32.0); CREATININE - SERUM 1.2 mg/dL (0.6-1.3); POTASSIUM - SERUM 3.8 mmol/L (3.5-5.1)
--- NOTE | 2017-02-16 04:58 | NUR ---
ORAL CARE AND TURNING PROVIDED. VSS, BED LOW AND LOCKED, RESTRAINTS CHECKED. WILL CPOC.
--- NOTE | 2017-02-16 07:15 | NUR ---
PT ON VENT, ON 16MCG DIPROVAN BUT WILL BEGIN CPAP TRIALS SO DECREASED GRADUALLY, PT AWAKE ON 16MCG, FOLLOWS COMMANDS, VSS, DENIES PAIN, RIGHT SUBCLAVIAN CVL DRESSING CDI, D5W AT 100ML./HR, DOPAMINE AT 4MCG, OGT WITH PULMOCARE AT 40ML/HR, DUARTE DRAINING YELLOW URINE, REPOSITIONED, WILL CONTINUE TO MONTIOR
--- NOTE | 2017-02-16 07:59 | NUR ---
PLACED ON CPAP 10/, 30% AT [address] MORGAN.
--- NOTE | 2017-02-16 09:00 | NUR ---
PT ON CPAP TRIALS, ABLE TO FOLLOW SOME COMMANDS (HAND TECHNICIAN SUBMARINE CABLE EQUIPMENT BUT WILL NOT LOOK AT WHILE TALKING) VSS, WILL CONTINUE TO MONITOR
--- NOTE | 2017-02-16 10:04 | NUR ---
NUTRITION F/U CHART REVIEWED. SPOKE WITH NURSING. CPAP TRIALS AT THIS TIME FOR POSSIBLE EXTUBATION. PULMOCARE AT 40 CC/HR. IF UNABLE TO EXTUBATE, WILL CONTINUE TO PROVIDE PULMOCARE. RD FOLLOWING
--- NOTE | 2017-02-16 11:18 | NUR ---
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
--- NOTE | 2017-02-16 13:01 | NUR ---
PT REPOSITIONED, VSS, CONTINUES ON CPAP, WILL CONTINUE TO MONITOR
--- NOTE | 2017-02-16 13:21 | NUR ---
PT EXTUBATED AND RESTRAINTS REMOVED 1310, VSS, DENIES PAIN, WILL CO NTIN UE TO MONITOR
--- NOTE | 2017-02-16 15:03 | NUR ---
PT VSS, O2 DESATS WHEN SLEEPING AND HAS TO BE REMINDED TO TAKE DEEP BREATHS, BED BATH AND LINEN CHANGE PROVIDED, DENIES PAIN, WILL CONTINUE TO MONITOR
--- NOTE | 2017-02-16 17:15 | NUR ---
PT TOLERATED DINNER TRAY WELL, ASSISTED WITH FEEDING, VSS, WILL CONTINUE TO MONITOR
--- NOTE | 2017-02-16 19:45 | NUR ---
SHIFT ASSESSMENT COMPLETE. PT IS DISORIENTED TO PLACE. REORIENTS EASILY. STRONG HAND MACHINE SORTER BILAT, SHE IS ABLE TO FOLLOW COMMANDS. PUPILS 7 MM, SLUGGISH REACTION TO LIGHT. NC @ 3 L/MIN, O2 SAT 98%, NO SIGNS OF ACUTE DISTRESS NOTED. S1S2 AUDIBLE, HR 64 BPM, NORMAL SINUS RHYTHM. FSBS 201. TEMP WOULD NOT READ ORAL OR AXILLARY. RECTAL TEMP 97.6. R SUBCLAVIAN CVL INFUSING DOPAMINE @ 4 MCG/KG/MIN AND D5W @ 100 ML/HR. ABD IS SOFT AND NONTENDER TO TOUCH, HYPOACTIVE BS X4. RADIAL AND PEDAL PULSES PALP, GENERALIZED EDEMA NOTED. SCD'S REMOVED AND SKIN ASSESSED, WNL. REPOSITIONED FOR COMFORT. REFILLED REFRESHMENTS. NO FURTHER REQUESTS. WILL CONT WITH POC.
--- NOTE | 2017-02-16 21:30 | NUR ---
REPOSITIONED FOR COMFORT. PT IS ABLE TO FOLLOW COMMANDS EASILY, SPEECH IS GARBLED. REFILLED REFRESHMENTS. NO FURTHER REQUESTS AT THIS TIME. WILL CONT WITH POC.
--- NOTE | 2017-02-16 23:30 | NUR ---
REASSESSMENT COMPLETE. HR 54 BPM, BRADYCARDIA. SHE STATES THAT THIS IS NORMAL FOR HER. FSBS 106, NO INSULIN ADMINISTERED. LOTION APPLIED TO LEGS AND FEET, SKIN IS DRY AND CRACKING, NON-SKID SOCKS APPLIED WELL. O2 SATURATION 96% TITRATED O2 OFF AND SHE IS ON ROOM AIR. REPOSITIONED FOR COMFORT. SHE DENIES ANY FURTHER REQUESTS. WILL CONT WITH POC.
[2017-02-17] VITALS (36 sets, daily range): BP systolic 91–154; BP diastolic 62–114
--- NOTE | 2017-02-17 01:30 | NUR ---
PT RESTING PEACEFULLY AT THIS TIME WITH NO SIGNS OF ACUTE DISTRESS NOTED. WILL CONT WITH POC.
--- NOTE | 2017-02-17 03:30 | NUR ---
REASSESSMENT COMPLETE. COMPLETE BED BATH GIVEN. HR LOW 40'S SHE STATES THAT SHE ISN'T FEELING ANY DIFFERENT AT THIS TIME. WILL CONT TO MONITOR CLOSELY. COMPLETE LINEN CHANGE. CALL LIGHT IN REACH. BED IN LOWEST POSITION. WILL CONT WITH POC.
[2017-02-17 05:15] LABS: BASOPHILS 0.4 % (0-2); EOSINOPHILS 0.1 % (0-7); HEMOGLOBIN 10.9 g/dL (12-16); IMMATURE GRANULOCYTES 13.2 % (0-5); MCH 28.6 pg (26.0-34.0); MCHC 32.1 g/dL (31.0-37.0); MCV 89.2 fL (80.0-100.0); MEAN PLATELET VOLUME 12.4 fL (7.4-10.4); MONOCYTES 13.7 % (2-11); NEUTROPHILS 54.6 % (40-80); PLATELET COUNT 172 10x3/uL (130-400); RBC 3.81 10x6/uL (4.00-5.40); RDW 15.8 % (11.5-14.5); WBC 12.5 10x3/uL (4.8-10.8)
--- NOTE | 2017-02-17 05:30 | NUR ---
PT HR LOW 30'S 1 MG ATROPINE ADMINISTERED. NEW ORDERS RECIEVED FROM DR. PETERSON. SHE RESPONDED WELL AND HER HR IS NOW IN THE LOW 60'S. WILL CONT WITH POC.
[2017-02-17 05:56] LABS: CALCIUM 8.6 mg/dL (8.5-10.1); CARBON DIOXIDE 25.7 mmol/L (21.0-32.0); CREATININE - SERUM 1.3 mg/dL (0.6-1.3); MAGNESIUM - SERUM 2.8 mg/dL (1.8-2.4); PHENYTOIN (DILANTIN) 23.6 ug/mL (10.0-20.0); PHOSPHOROUS 2.4 mg/dL (2.5-4.9)
[2017-02-17 06:35] LABS: T4 THYROXIN - FREE 0.21 ng/dL (0.76-1.46); T4 THYROXINE 0.9 ug/dL (4.7-13.3); THYROID STIMULATING HORMONE 0.01 uIU/mL (0.36-3.74)
[2017-02-17 06:40] LABS: ANION GAP 13.5 mmol/L (8-16); POTASSIUM - SERUM 3.2 mmol/L (3.5-5.1)
--- NOTE | 2017-02-17 07:00 | NUR ---
REC'D REPORT AND RESUMED CARE, AWAKE AND CONFUSED, DENIES PAIN, ASSESSMENT COMPLETE PER FLOWSHEET, NO NEEDS AT THIS TIME
--- NOTE | 2017-02-17 07:16 | NUR ---
SPOKE WITH DR. GAMEZ. WILL HOLD DILANTIN THIS AM AND CHANGE DOSAGE/TIME.
--- NOTE | 2017-02-17 07:40 | NUR ---
BREAKFAST TRAY TO BEDSIDE, ASSIST WITH SET UP AND EATING
--- NOTE | 2017-02-17 09:15 | NUR ---
AM MEDS GIVEN PER MAR FLOWSHEET
--- NOTE | 2017-02-17 11:00 | NUR ---
NO ACUTE CHANGE FROM PREVIOUS ASSESSMENT, VSS, CONTINUES TO BE SINUS FRANCO, DENIES PAIN WILL CONTINUE WITH POC
--- NOTE | 2017-02-17 15:00 | NUR ---
ASSESSMENT COMPLETE PER FLOWSHEET, NO ACUTE CHANGE FROM PREVIOUS
--- NOTE | 2017-02-17 16:45 | NUR ---
DINNER TRAY TO BEDSIDE, INDEPENDENT WITH SET UP AND EATING
--- NOTE | 2017-02-17 18:43 | NUR ---
SLEEPING WITH NO SIGNS OF DISTESS, VSS, CALL LIGHT IN REACH,
--- NOTE | 2017-02-17 19:00 | NUR ---
Received patient resting in bed with eyes closed, assessment completed per flowsheet. Disorientation to time/place/situation noted, pateint follows commands. Eyes PERRLA @ 4mm with brisk response, redness and edema noted. S1/S2 noted Sinus Claude on telemetry with HR 48, rhythmic and regular. Breathing is shallow and unlabored on 3L via NC with O2 sat 95%, lung sounds clear bilateral upper with crackles noted mid and diminished lower. Abdomen is round and soft with bowel sounds active x4, non-tender. Bee secured in place with clear yellow urine noted. Weakness noted all extremities with all pulses palpable, cap refill < 3 sec with skin slightly scaly. R subclavian CVL dressing off with 1 suture missing, 2.5cm catheter measured from hub to placement site. Site cleaned and dressing replaced, STAT xray to verify placement ordered. Assisted with repositioning for comfort, denies pain or other needs at this time. All VSS and will continue to monitor.
--- NOTE | 2017-02-17 21:00 | NUR ---
Patient resting in bed with eyes closed, no visitors at this time. All HS meds given without difficulty, patient repositioned for comfort. No further needs at this time, all VSS and will continue to monitor.
--- NOTE | 2017-02-17 23:00 | NUR ---
Reassessment completed per flowsheet, patient resting in bed with eyes open watching TV. Patient disoriented to time/place/situation. S1/S2 noted Sinus Claude on telemetry with HR 35, patient answers questions appropriately and BP 126/94. Breathing is even and unlabored on room air with O2 sat 99%, lung sounds clear bilateral upper with crackles noted mid and diminished lower. All pulses palpable with cap refill < 3 sec, skin warm/dry to touch. Patient denies pain or other needs at this time, all VSS and will continue to monitor.
[2017-02-18] VITALS (44 sets, daily range): BP systolic 88–146; BP diastolic 57–98
--- NOTE | 2017-02-18 01:00 | NUR ---
Patient resting in bed with eyes closed. Bee care performed, patient repositioned for comfort. Patient audibly grinds teeth while sleeping, no further needs at this time, all VSS and will continue to monitor.
[2017-02-18 02:21] LABS: CREATININE - URINE 9.2 mg/dL (30-125)
--- NOTE | 2017-02-18 03:00 | NUR ---
Reassessment completed per flowsheet, patient resting in bed with eyes closed. Eyes PERRLA @ 4mm with brisk response, slight redness and edema noted. S1/S2 noted Sinus Claude on telemetry with HR 36, rhythmic and regular. Breathing is slightly shallow on room air with O2 sat 95%, lung sounds clear bilateral upper with crackles noted mid and diminished lower. All pulses palpable with cap refill < 3 sec, skin warm/dry. Patient denies pain or other needs at this time, all VSS and will continue to monitor.
[2017-02-18 04:39] LABS: BASOPHILS 0.2 % (0-2); EOSINOPHILS 0.1 % (0-7); HEMOGLOBIN 11.3 g/dL (12-16); IMMATURE GRANULOCYTES 14.7 % (0-5); LYMPHOCYTES 13.7 % (15-50); MCH 28.5 pg (26.0-34.0); MCHC 32.3 g/dL (31.0-37.0); MCV 88.2 fL (80.0-100.0); MEAN PLATELET VOLUME 13.2 fL (7.4-10.4); MONOCYTES 9.2 % (2-11); NEUTROPHILS 62.1 % (40-80); PLATELET COUNT 183 10x3/uL (130-400); RBC 3.97 10x6/uL (4.00-5.40); RDW 15.6 % (11.5-14.5); WBC 16.6 10x3/uL (4.8-10.8)
[2017-02-18 04:52] LABS: ANION GAP 15.2 mmol/L (8-16); CALCIUM 8.6 mg/dL (8.5-10.1); POTASSIUM - SERUM 3.2 mmol/L (3.5-5.1)
--- NOTE | 2017-02-18 05:00 | NUR ---
AM labs resulted, notified of low glucose @ 41. Patient given sips of apple juice to help raise glucose level, will recheck in 30 mins.
--- NOTE | 2017-02-18 07:00 | NUR ---
REC'D REPORT SND RESUMED CARE, SLEEPING, AROUSABLE LTO VEERAL STIMULI, VSS, DENIES PAIN, ASSESSMENT COMPLETE PER FLOWSHEET, CALL LIGHT IN REACH, NO NEEDS AT THIS TIME
--- NOTE | 2017-02-18 07:59 | NUR ---
PHONE CALL TO DR. GAMEZ, DILANITN LEVEL RESULTS GIVEN, NEW ORDER GIVEN TO CONTINUE WITH PRESENT DOSE OF DILANTIN LEVEL ORDERED TO BE GIVEN AT NOC
--- NOTE | 2017-02-18 09:15 | NUR ---
AM MEDS GIVEN PER MAR AND PROTOCAL
--- NOTE | 2017-02-18 10:29 | NUR ---
NUTRITION F/U CHART REVIEWED. PT REMAINS IN ISOLATION. NURSING REPORTS PT WITH GOOD INTAKE PUREED DIET WITH NECTAR LIQUIDS. WILL ADVANCE DIET WHEN OK'D BY SPEECH THERAPY. RD FOLLOWING
--- NOTE | 2017-02-18 11:00 | NUR ---
ASSESSMENT COMPLETE PER FLOWSHEET, VSS, NO ACUTE CHAGE FROM PREVIOUS
--- NOTE | 2017-02-18 13:30 | NUR ---
OOB TO CHAIR WITH ASSIST FROM PHYSICAL THERAPY, BATH AND LINEN CHANGE COMPLETED
--- NOTE | 2017-02-18 13:45 | NUR ---
DR JOSÉ HERE FOR EVAL, NO NEW ORDERS AT THIS TIME
--- NOTE | 2017-02-18 14:41 | NUR ---
DR MCKEON HERE FOR EVAL, NEW ORDERS GIVEN
--- NOTE | 2017-02-18 14:50 | NUR ---
DUARTE CLAMPED PER ORDER
--- NOTE | 2017-02-18 16:23 | NUR ---
DR. KELLY NOTIFIED OF CONSULT. TYMPANIC TEMP 94.2 AT 1500 VS CHECK. BARE HUGGAR APPLIED AT THAT TIME. PATIENT ASSISTED BACK TO BED AND BLADDER TRAINING INITIATED AT 1500 ALSO.
--- NOTE | 2017-02-18 18:11 | NUR ---
PATIENT HR NOTED TO BE 32 WITH EDE (NET SORTER) AT BEDSIDE. HR INCREASED TO 50'S AFTER SEVERAL MINUTES. EDE NOTIFIED BOTH DR. GAMEZ AND DAYANAN. DR. GAMEZ ALSO NOTIFIED BY EDE OF TEMP DOWN TO 94.2. ORDERS RECEIVED FOR URINE SODIUM AND OSMOLALITY. URIN COLLECTED. DUARTE UNCLAMPED AT 1730 WITH 700 ML OUTPUT. DUARTE RECLAMPED AT 1800. PATIENT SLEEPING PEACEFULLY AT THIS TIME.
[2017-02-19] VITALS (54 sets, daily range): BP systolic 85–108; BP diastolic 50–84
[2017-02-19 05:24] LABS: BASOPHILS 0.1 % (0-2); EOSINOPHILS 0 % (0-7); HEMATOCRIT 31.9 % (36.0-48.0); HEMOGLOBIN 10.4 g/dL (12-16); IMMATURE GRANULOCYTES 13.3 % (0-5); LYMPHOCYTES 13.2 % (15-50); MCH 28.4 pg (26.0-34.0); MCHC 32.6 g/dL (31.0-37.0); MCV 87.2 fL (80.0-100.0); MONOCYTES 5.7 % (2-11); NEUTROPHILS 67.7 % (40-80); PLATELET COUNT 219 10x3/uL (130-400); RBC 3.66 10x6/uL (4.00-5.40); RDW 15.5 % (11.5-14.5); WBC 20.1 10x3/uL (4.8-10.8)
[2017-02-19 05:31] LABS: ANION GAP 11.8 mmol/L (8-16); CALCIUM 8.2 mg/dL (8.5-10.1); CREATININE - SERUM 1.1 mg/dL (0.6-1.3)
[2017-02-19 05:32] LABS: POTASSIUM - SERUM 3.8 mmol/L (3.5-5.1)
--- NOTE | 2017-02-19 07:57 | NUR ---
NOTED EPISODE OF BRADYCARDIA. PT HEART RATE DROPPED TO 44 SINUS THEN SLOWLY INCREASED TO 71 SINUS. PHYSICIANS HAVE NOTED IN REPORTS THAT PT HAS BEEN DOING THIS AT TIMES. PT DENIES ANY NEEDS OR DISCOMFORTS. WILL CONTINUE TO OBSERVE.
--- NOTE | 2017-02-19 10:02 | NUR ---
UP IN CHAIR AT THIS TIME. NO ACUTE DISTRESS NOTED. TRANSFERRED FROM BED TO CHAIR WITH ASSIST FROM PHYSICAL THERAPY. WILL CONTINUE PLAN OF CARE.
--- NOTE | 2017-02-19 11:58 | NUR ---
LYING IN BED RESTING AT THIS TIME. RESPIRATIONS STEADY AND UNLABORED. NO ACUTE DISTRESS NOTED. AWAKENS EASILY WHEN SPOKEN TO. WILL CONTINUE PLAN OF CARE.
--- NOTE | 2017-02-19 13:06 | NUR ---
ASSISTED PT WITH MEAL VIA TOTAL ASSIST. PT WAS ABLE TO STATE TO THIS NURSE WHAT SHE WANTED TO EAT BUT AFTER TRAY WAS SAT IN FRONT OF PT AND SHE STATED SHE COULD REACH EVERYTHING AND DID NOT NEED HELP, PT WENT BACK TO SLEEP. STAFF FED PT. PT NOW SITTING UP IN BED WATCHING TV. DENIES ANY NEEDS. WILL CONTINUE PLAN FO CARE.
--- NOTE | 2017-02-19 16:52 | NUR ---
UP IN BED RESTING AT THIS TIME. RESPIRATIONS STEADY AND UNLABORED RATE. AWAKENS EASILY WHEN SPOKEN TO. PT STATES SHE IS COMFORTABLE AND DOES NOT NEED ANYTHING AT THIS TIME. NO ACUTE DISTRESS NOTED. WILL CONTINUE PLAN OF CARE.
--- NOTE | 2017-02-19 18:08 | NUR ---
TOTAL BED CHANGE PROVIDED AT THIS TIME. NOTED SMALL INCONTINENT BROWN FORMED BOWEL MOVEMENT. BRIE CARE AND DUARTE CARE PROVIDED VIA TOTAL ASSIST. NO ACUTE DISTRESS NOTED. WILL CONTINUE PLAN OF CARE.
--- NOTE | 2017-02-19 19:20 | NUR ---
ASSESSMENT COMPLETED. SEE FLOW SHEETS FOR ALL FINDINGS. PT ALERT/ORIENTED TO NAME, CONFUSED WITH TIME, PLACE AND SITUATION. SR ON CM WITH HR AT 74, LUNG SOUNDS DIMINISHED TO LLB, UNLABORED ON RA.RT SC CVL INTACT,CLEAN AND DRY INFUSING IV FLUIDS VIA PUMP PER ORDER. DUARTE INTACT TO GRAVITY WITH CL/LIGHT YELLOW DRAINAGE TO BAG. PPP. CALL LIGHT IN REACH. CONT TO MONITOR.
--- NOTE | 2017-02-19 21:00 | NUR ---
NO VISITORS AT THIS TIME. SCHEDULED MEDS GIVEN PER ORDER. PT CATARINA WELL. CONT TO MONITOR.
--- NOTE | 2017-02-19 23:00 | NUR ---
REASSESSMENT COMPLETED PER FLOW SHEETS. NO SIGNS OF DISTRESS NOTED AT THIS TIME. VSS. CALL LIGHT IN REACH. CONT TO MONITOR.
[2017-02-20] VITALS (56 sets, daily range): BP systolic 80–112; BP diastolic 45–93
--- NOTE | 2017-02-20 01:00 | NUR ---
PT RESTING QUIETLY WITHOUT DISTRESS. VSS. CPOC
--- NOTE | 2017-02-20 03:00 | NUR ---
REASSESSMENT COMPLETED. SEE FLOW SHEETS FOR ALL FINDINGS. PT AWAKE WATCHING TV. NO ACUTE SIGNS OF DISTRESS NOTED. VSS. CALL LIGHT IN REACH. CPOC.
[2017-02-20 05:17] LABS: BASOPHILS 0.2 % (0-2); EOSINOPHILS 0.1 % (0-7); HEMATOCRIT 29.9 % (36.0-48.0); HEMOGLOBIN 9.7 g/dL (12-16); IMMATURE GRANULOCYTES 9.8 % (0-5); LYMPHOCYTES 17.9 % (15-50); MCH 28.8 pg (26.0-34.0); MCHC 32.4 g/dL (31.0-37.0); MCV 88.7 fL (80.0-100.0); MEAN PLATELET VOLUME 13.1 fL (7.4-10.4); RBC 3.37 10x6/uL (4.00-5.40); RDW 15.9 % (11.5-14.5); WBC 17.9 10x3/uL (4.8-10.8)
[2017-02-20 05:18] LABS: PLATELET COUNT 268 10x3/uL (130-400)
[2017-02-20 05:37] LABS: ANION GAP 14.9 mmol/L (8-16); CALCIUM 8.3 mg/dL (8.5-10.1); CARBON DIOXIDE 22.4 mmol/L (21.0-32.0); CREATININE - SERUM 1.2 mg/dL (0.6-1.3); POTASSIUM - SERUM 3.3 mmol/L (3.5-5.1)
--- NOTE | 2017-02-20 09:47 | NUR ---
NUTRITION F/U PT REMAINS IN ICU. TOLERATING REG PUREED DIET WITH NECTAR LIQUIDS. WILL PROVIDE DIET PER SPEECH REC'S. RD FOLLOWING
--- NOTE | 2017-02-20 10:11 | NUR ---
UNABLE TO CURENTLY REMOVE DOPAMINE IV WITHOUT BP FALLING TO UNSAFE LEVEL, SPOKE WITH MRI AND CURRENTLY UNABLE TO GO TO MRI BECAUSE OF IV PUMP
--- NOTE | 2017-02-20 10:39 | NUR ---
BACK TO BED PER NURSE
--- NOTE | 2017-02-20 12:03 | NUR ---
PATEINT SETUP FOR LUNCH.
--- NOTE | 2017-02-20 15:00 | NUR ---
NO CHANGE NOTED
--- NOTE | 2017-02-20 19:00 | NUR ---
REPORT RECIEVED, SHIFT ASSESSMENT COMPLETE, PLEASE SEE FLOW SHEETS FOR DETAILS. CONFUSED TO TIME AND PLACE. C/O PAIN DOWN LEFT LEG, CANNOT GIVE SPECIFICS OF PAIN. HOB IS ELEVATED AND PT DENIES ANY OTHER NEEDS ATT. PPP. PUPILS 6MM AND BRISK. SOMETIMES PATIENT PAUSES WHILE SPEAKING AND FORGETS WHAT SHE IS TALKING ABOUT. VSS ATT, DOPAMINE GTT INFUSING TO RT SC CVL @ 2 MCG/KG/MIN. D5 @ 75 ALSO INFUSING. BS ACTIVE X4. INSPIRATORY AND EXPIRATORY WHEEZES NOTED IN UPPER LOBES BILATERALLY AND ALL LOWER LOBES DIMINISHED. S1S2 HEARD AND NSR NOTED ON MONITOR. BED LOW AND LOCKED, CALL LIGHT IN REACH. WILL CPOC.
--- NOTE | 2017-02-20 21:10 | NUR ---
RESTING IN BED. DENIES PAIN/NEEDS ATT. VSS, BED LOW AND LOCKED, CALL LIGHT IN REACH. WILL CPOC.
--- NOTE | 2017-02-20 22:51 | NUR ---
REASSESSMENT COMPLETE, PLEASE SEE FLOW SHEETS FOR DETAILS. DENIES PAIN/NEEDS ATT. BREATH SOUNDS CLEAR IN UPPER LOBES AND CRACKLES IN LOWER LOBES. NO OTHER CHANGES ATT. VSS, BED LOW AND LOCKED, CALL LIGHT IN REACH. WILL CPOC.
[2017-02-21] VITALS (57 sets, daily range): BP systolic 75–114; BP diastolic 56–85
--- NOTE | 2017-02-21 01:00 | NUR ---
SLEEPING, NO S&S OF ACUTE DISTRESS NOTED. VSS, BED LOW AND LOCKED, CALL LIGHT IN REACH. WILL CPOC.
--- NOTE | 2017-02-21 03:00 | NUR ---
REASSESSMENT COMPLETE, PLEASE SEE FLOW SHEETS FOR DETAILS. PT NOW C/O PAIN ALL OVER, / AND A PRESSURE PAIN, NO PAIN MEDS ON EMAR - POSSIBLY DUE TO NOT WANTING TO SEDATE THE PATIENT IN ANY WAY TO MONITOR MENTAL STATUS EFFECTIVELY. PT NOW ORIENTED TO PERSON, TIME, AND SITUATION. SHE THOUGHT SHE WAS IN [place]. ALSO ASKING FOR SOMETHING TO HELP HER SLEEP. SEEMS TO BE GETTING AGGITATED WITH ME/SITUATION - WILL GIVE MEDS FOR THIS PER ORDERS. VSS ATT, DOPAMINE INFUSING AND BP NOT ALLOWING FOR WEANING IT OFF ALL THE WAY. BED LOW AND LOCKED, CALL LIGHT IN REACH. WILL CPOC.
[2017-02-21 04:25] LABS: BASOPHILS 0.1 % (0-2); EOSINOPHILS 0 % (0-7); HEMATOCRIT 27.3 % (36.0-48.0); HEMOGLOBIN 8.8 g/dL (12-16); IMMATURE GRANULOCYTES 9.5 % (0-5); LYMPHOCYTES 15.3 % (15-50); MCH 28.9 pg (26.0-34.0); MCHC 32.2 g/dL (31.0-37.0); MCV 89.8 fL (80.0-100.0); MEAN PLATELET VOLUME 13.1 fL (7.4-10.4); MONOCYTES 5.2 % (2-11); NEUTROPHILS 69.9 % (40-80); PLATELET COUNT 275 10x3/uL (130-400); RBC 3.04 10x6/uL (4.00-5.40); RDW 15.9 % (11.5-14.5); WBC 18.5 10x3/uL (4.8-10.8)
--- NOTE | 2017-02-21 04:49 | NUR ---
ASKED FOR A SNACK, OFFERED JELLO, ICE CREAM, ASKED FOR DONUTS... PROVIDED ICE CREAM AND PT SEEMED HAPPY WITH THIS. VSS, BED LOW AND LOCKED, CALL LIGHT IN REACH. WILL CPOC.
[2017-02-21 04:58] LABS: ALBUMIN 2.4 g/dL (3.4-5.0); ANION GAP 18.1 mmol/L (8-16); CALCIUM 8.3 mg/dL (8.5-10.1); CARBON DIOXIDE 22.6 mmol/L (21.0-32.0); CREATININE - SERUM 1.2 mg/dL (0.6-1.3); POTASSIUM - SERUM 3.7 mmol/L (3.5-5.1); PROTEIN - SERUM 6.1 g/dL (6.4-8.2)
[2017-02-21 04:59] LABS: BILIRUBIN - TOTAL 0.07 mg/dL (0.2-1.3)
--- NOTE | 2017-02-21 06:00 | NUR ---
WALKED IN TO GIVE PATIENT MEDS, FRESH RED BLOOD RUNNING DOWN SIDES OF MOUTH AND ONTO GOWN. PT WAS ASLEEP AND GRINDING TEETH. WOKE PATIENT AND ASKED IF SHE BIT HER TONGUE. PT STATED SHE DIDNT KNOW AT FIRST BUT ONCE ASKED AGAIN, SHE SAID THAT SHE DID, SHE ALSO CONTINUED TO GRIND HER TEETH WHILE SHE WAS AWAKE, I ENCOURAGED HER TO STOP DOING THIS IT WOULD HURT HER TEETH. VISUALIZED TONGUE, BITE ROSSI POSSIBLE. CLEANED UP PATIENT. VSS, BED LOW AND LOCKED, WILL CPOC.
[2017-02-21 09:16] LABS: % SATURATION 45 % (15-55); IRON 104 ug/dl (35-150); TOTAL IRON BIND CAPACITY 228 ug/dl (260-445); UNSAT IRON BIND CAPACITY 124 ug/dl (150-375)
--- NOTE | 2017-02-21 09:25 | NUR ---
UP TO CHAIR VIA PT
--- NOTE | 2017-02-21 17:18 | NUR ---
UNABLE TO DO MRI TODAY, DUE TO CANNOT TAKE PATIENT OFF OF DRIP. WILL CHECK AGAIN TOMORROW.
--- NOTE | 2017-02-21 19:00 | NUR ---
REPORT RECIEVED, SHIFT ASSESSMENT COMPLETE, PLEASE SEE FLOW SHEETS FOR DETAILS. PT WAS SLEEPING WHEN ENTERING THE ROOM. WOKE TO HER NAME AND FELL BACK TO SLEEP VERY QUICKLY, WOULD NOT ANSWER QUESTIONS BUT DID ANSWER TO HER NAME. NOTE GRINDING TEETH SHE WOKE TO HER NAME. DID NOT RESPOND TO PAIN QUESTION. LUNGS CLEAR IN UPPER LOBES AND DIMINISHED IN LOWER LOBES. BS ACTIVE X4. S1S2 AUDIBLE, NSR NOTED ON MONITOR. PPP. PUPILS LARGE AT 5MM AND BRISK, DID TURN HEAD TO LIGHT SHINED IN EYES. VSS ATT, BED LOW AND LOCKED, CALL LIGHT IN REACH. WILL CPOC.
--- NOTE | 2017-02-21 21:00 | NUR ---
PATIENT WOULD NOT STAY AWAKE TO TAKE MEDS, WOULD WAKE UP AND YELL "WOKE" OR "IM UP", WHEN ASKED IF SHE WOULD TAKE HER MEDS SHE WOULD STATE "YES" AND THEN NOT OPEN HER MOUTH TO TAKE THE MEDS AND CLOSE HER EYES. WHEN ASKED IF SOMETHING WAS WRONG THE PATIENT GRUNTED AND DID NOT VERBALIZE ANY NEEDS. VSS ATT, BED LOW AND LOCKED, CALL LIGHT IN REACH. WILL CPOC.
--- NOTE | 2017-02-21 22:54 | NUR ---
REASSESSMENT COMPLETE, PLEASE SEE FLOW SHEETS FOR DETAILS. PT WOKE TO HER NAME, STILL VERY CONFUSED, THOUGH IS TALKING MORE NOW. ASKED HER IF SHE WAS IN ANY PAIN AND SHE CALMLY SAID THAT SHE WAS BUT THAT NOONE WAS DOING ANYTHING ABOUT IT. ATTEMPTED TO EXPLAIN TO HER THAT DR GAMEZ DOES NOT WANT PAIN MEDS BEING GIVEN TO HER SO WE COULD MONITOR HER LOC AND THAT WE DID NOT WANT HER TO POSSIBLY HAVE TO GO BACK ONTO THE VENT, ASKED IF SHE UNDERSTOOD THIS AND SHE SHOOK HER HEAD NO. INFORMED HER THAT WE WANT TO KEEP HER STABLE AT THIS POINT AND SHE DID NOT RESPOND TO THIS. ASKED IF SHE WANTED THE LIGHTS OUT SO SHE COULD POSSIBLE REST BETTER, SHE SAID "YES". NO OTHER CHANGES FROM PREVIOUS ASSESSMENT. VSS, TITRATING DOPAINE NEEDED. BED LOW AND LOCKED, CALL LIGHT IN REACH. WILL CPOC.
[2017-02-22] VITALS (58 sets, daily range): BP systolic 52–108; BP diastolic 32–90
--- NOTE | 2017-02-22 01:00 | NUR ---
DUARTE CARE PROVIDED. TOLERATED WELL. SHAKES HEAD NO TO PAIN. SHAKES HEAD NO TO NEEDS. VSS, BED LOW AND LOCKED, CALL LIGHT IN REACH. WILL CPOC.
--- NOTE | 2017-02-22 03:01 | NUR ---
REASSESSMENT COMPLETE, PLEASE SEE FLOW SHEETS FOR DETAILS. NO CHANGES NOTED ATT. VSS, TITRATING DOPAMINE PER ORDERS. BED LOW AND LOCKED, CALL LIGHT IN REACH. WILL CPOC.
[2017-02-22 04:41] LABS: BASOPHILS 0.2 % (0-2); EOSINOPHILS 0.1 % (0-7); HEMATOCRIT 27.8 % (36.0-48.0); HEMOGLOBIN 8.9 g/dL (12-16); IMMATURE GRANULOCYTES 9.2 % (0-5); LYMPHOCYTES 21.4 % (15-50); MCH 28.8 pg (26.0-34.0); MEAN PLATELET VOLUME 12.9 fL (7.4-10.4); MONOCYTES 6.2 % (2-11); NEUTROPHILS 62.9 % (40-80); PLATELET COUNT 333 10x3/uL (130-400); RBC 3.09 10x6/uL (4.00-5.40); WBC 16.7 10x3/uL (4.8-10.8)
--- NOTE | 2017-02-22 04:46 | NUR ---
RESTING, NO S&S OF ACUTE DISTRESS NOTED. VSS, BED LOW AND LOCKED, CALL LIGHT IN REACH. WILL CPOC.
[2017-02-22 05:00] LABS: ALBUMIN 2.5 g/dL (3.4-5.0); ANION GAP 14.8 mmol/L (8-16); BILIRUBIN - TOTAL 0.12 mg/dL (0.2-1.3); CALCIUM 8.2 mg/dL (8.5-10.1); CARBON DIOXIDE 23.8 mmol/L (21.0-32.0); CREATININE - SERUM 1.2 mg/dL (0.6-1.3); POTASSIUM - SERUM 3.6 mmol/L (3.5-5.1); PROTEIN - SERUM 6.4 g/dL (6.4-8.2)
--- NOTE | 2017-02-22 10:30 | NUR ---
UP TO CHAIR VIA PT. FULL LINEN CHANGE
--- NOTE | 2017-02-22 13:30 | NUR ---
PATIENT STILL ON DRIP AND UNABLE TO HAVE MRI TODAY. WILL CHECK BACK TOMORROW.
--- NOTE | 2017-02-22 15:17 | NUR ---
NOTIFIED ROSIE WITH MRI OF PT NO LONGER BEING ON VASOPRESSORS. STATES MRI TO BE DONE IN AM.
--- NOTE | 2017-02-22 19:30 | NUR ---
REPORT RECEIVED. SHIFT ASSESMENT COMPLETED PER FLOW SHEET. PT LAYING IN BED AWAKE AND ALERT. SPEECH IS CLEAR. PUPILS 5MM SLUGGISH REACTION. OBEYS COMMAND WHEN ASKED TO MOVE UPPER AND LOWER EXTREMIITES. ORIENTED TO PERSON, TIME, PLACE, AND SITUATION. S1S2 PRESENT. RADIAL AND PEDAL PULSES PALP. TELEMETRY MONITORING HR OF 78. BREATHING EQUAL AND NONLABORED. BS ACTIVE X4. DUARTE CATHETER TO GRAVITY, SECURED, DRAINING CLEAR YELLOW URINE. MUCOUS MEMBRANES MOIST. SKIN WARM AND DRY, SCALY APPEARANCE. SCD'S ON. RT SUBCLAVIAN CVL, PATENT. PT ON DROPLET ISOLATION. PT DENIES NEEDS AT THIS TIME. SEE FLOW SHEET FOR COMPLETE ASSESSMENT. WILL CONTINUE TO MONITOR.
--- NOTE | 2017-02-22 20:00 | NUR ---
PT REQUESTING JUICE, JUICE PROVIDED PER REQUEST. WATER ALSO PROVIDED AND ENCOURAGED PT TO DRINK THE WATER WELL AFTER FINISHING HER JUICE. PT VERBALIZES UNDERSTANDING. BLADDER TRAINING INITIATED, INSTRUCTED PT TO PUSH THE CALL LIGHT IF SHE FEELS THE URGE TO VOID. PT VERBALIZED UNDERSTANDING. CALL LIGHT WITHIN REACH. BED IN LOWEST POSITION. WILL CONTINUE TO MONITOR.
--- NOTE | 2017-02-22 21:40 | NUR ---
PT YELLING "HELLO" THEN SHE VERBALIZED THE NEED TO VOID. DUARTE CATHETER UNCLAMPED, 250 MLS OF CLEAR YELLOW URINE OBTAINED. DUARTE CATHETER CLAMPED AGAIN AND TEACHING REINFORCED TO COMMUNICATE THE URGE TO VOID. PT VERBALIZED UNDERSTANDING. CALL LIGHT WITHIN REACH. BED IN LOWEST POSITION. WILL CONTINUE TO MONITOR.
--- NOTE | 2017-02-22 21:46 | NUR ---
STATUS REPORT CALLED TO DR. PETERSON RE: SBP 85, MAP 65 AND PT ALERT AND ANSWERING QUESTIONS APPROP. NEW NURSING MESSAGE REC'D NOT TO RESTART DOPAMINE AT THIS TIME. NEW PARAMETERS REC'D.
--- NOTE | 2017-02-22 23:00 | NUR ---
REASSESSMENT COMPLETED PER FLOW SHEET, SEE FLOW SHEET FOR DETAILS. NO ACUTE CHANGES NOTED. DENIES NEEDS. CALL LIGHT WITHIN REACH. BED IN LOWEST POSITION. WILL CONTINUE TO MONITOR.
[2017-02-23] VITALS (16 sets, daily range): BP systolic 82–100; BP diastolic 52–79
--- NOTE | 2017-02-23 01:20 | NUR ---
PT REQUESTING JUICE, TEACHING PROVIDED ON IMPORTANCE OF DRINKING WATER WELL. ONE CUP OF JUICE AND ONE CUP OF WATER PROVIDED. ENCOURAGED PT TO DRINK BOTH, SHE VERBALIZED UNDERSTANDING. CALL LIGHT WITHIN REACH. BED IN LOWEST POSITION. WILL CONTINUE TO MONITOR.
--- NOTE | 2017-02-23 03:20 | NUR ---
REASSESSMENT COMPLETED PER FLOW SHEET. SEE FOR DETAILS. FOUND PT INCONTINENT OF STOOL. LARGE AMOUNT OF SOFT BROWN BOWEL MOVEMENT NOTED. ENCOURAGED PT TO PUSH CALL LIGHT WHEN SHE FEELS THE NEED TO DEFECATE, PT VERBALIZES UNDERSTANDING. PT CLEANED. BED LINENS CHANGED. REPOSITIONED FOR COMFORT. CALL LIGHT WITHIN REACH. BED IN LOWEST POSITION. WILL CONTINUE TO MONITOR.
[2017-02-23 04:00] LABS: BASOPHILS 0.2 % (0-2); EOSINOPHILS 0.2 % (0-7); HEMATOCRIT 24.5 % (36.0-48.0); HEMOGLOBIN 7.7 g/dL (12-16); IMMATURE GRANULOCYTES 10.5 % (0-5); LYMPHOCYTES 22.9 % (15-50); MCH 28.2 pg (26.0-34.0); MCHC 31.4 g/dL (31.0-37.0); MCV 89.7 fL (80.0-100.0); MEAN PLATELET VOLUME 12.9 fL (7.4-10.4); MONOCYTES 6.6 % (2-11); NEUTROPHILS 59.6 % (40-80); PLATELET COUNT 319 10x3/uL (130-400); RBC 2.73 10x6/uL (4.00-5.40); RDW 15.9 % (11.5-14.5); WBC 13.1 10x3/uL (4.8-10.8)
--- NOTE | 2017-02-23 04:00 | NUR ---
PT HOME CARE ASSISTANT LIGHT, KRISTAL LA PROVIDED PER REQUEST. DENIES FURTHER NEEDS. WILL CONTINUE TO MONITOR.
--- NOTE | 2017-02-23 04:10 | NUR ---
PT LIBRARIAN HEAD LIGHT. KRISTAL LA PROVIDED PER REQUEST. DENIES FURTHER NEEDS. CALL LIGHT WITHIN REACH. BED IN LOWEST POSITION. WILL CONTINUE TO MONITOR.
[2017-02-23 04:17] LABS: ALBUMIN 2.3 g/dL (3.4-5.0); ANION GAP 13.6 mmol/L (8-16); CALCIUM 7.9 mg/dL (8.5-10.1); CARBON DIOXIDE 24.3 mmol/L (21.0-32.0); CREATININE - SERUM 1.2 mg/dL (0.6-1.3); MAGNESIUM - SERUM 1.8 mg/dL (1.8-2.4); PHOSPHOROUS 2.4 mg/dL (2.5-4.9); POTASSIUM - SERUM 3.9 mmol/L (3.5-5.1); PROTEIN - SERUM 5.8 g/dL (6.4-8.2)
[2017-02-23 04:19] LABS: BILIRUBIN - TOTAL 0.09 mg/dL (0.2-1.3)
--- NOTE | 2017-02-23 06:00 | NUR ---
MEDS ADMINISTERED PER EMAR, SEE FOR DETAILS. WATER AND JUICE PROVIDED. DENIES OTHER NEEDS. CALL LIGHT WITHIN REACH. BED IN LOWEST POSITION. WILL CONTINUE TO MONITOR.
--- NOTE | 2017-02-23 07:00 | NUR ---
PT REPORT REC'D, PT CARE ASSUMED. PT RESTING WITH EYES CLOSED, NO C/O PAIN. VSS, NO SIGNS OF DISCOMFORT OR DISTRESS. RIGHT SUBCLAVIAN CVL WITH FLUIDS INFUSING, SEE FLOW SHEET. SHIFT ASSESSMENT COMPLETED, SEE FLOW SHEET. ROOM FREE OF CLUTTER, CALL LIGHT IN REACH, BED ALARM ACTIVE, WILL CONTINUE TO MONITOR PT.
--- NOTE | 2017-02-23 08:30 | NUR ---
PHYSICAL THERAPY IN WITH PT, TRANSFERRED PT FROM BED TO CHAIR. PT HAD MEDIUM BM, CLEANED PT. PT TOLERATED WELL. PT SITTING UP IN CHAIR, CALL LIGHT IN REACH, CLOSE TO NURSES STATION, WILL CONTINUE TO MONITOR PT.
--- NOTE | 2017-02-23 08:45 | NUR ---
DR. JOSÉ AT THE BEDSIDE, VSS, WILL CONTINUE TO MONITOR PT.
--- NOTE | 2017-02-23 09:00 | NUR ---
PT SITTING UP IN CHAIR, TOOK PT BREAKFAST TRAY, "I ALREADY HAD BREAKFAST EARLIER, I WANT MY COFFEE THOUGH." WILL TRY AGAIN LATER.
--- NOTE | 2017-02-23 09:27 | NUR ---
NUTRITION F/U PT CONTINUES GOOD PO INTAKE PUREED DIET WITH NECTAR LIQUIDS. WILL CONTINUE TO PROVIDE DIET PER ST REC'S. MONITOR PO INTAKE. RD FOLLOWING
--- NOTE | 2017-02-23 11:00 | NUR ---
PT SITTING UP IN CHAIR, NO C/O PAIN, VSS. REASSESSMENT COMPLETED, SEE FLOW SHEET. NO FAMILY PRESENT AT THIS TIME, WILL CONTINUE TO MONITOR PT.
--- NOTE | 2017-02-23 11:30 | NUR ---
CELE LIMA AT THE BEDSIDE FOR SWALLOW EVAL. PT TOLERATED WELL, WILL CONTINUE TO MONITOR PT.
--- NOTE | 2017-02-23 11:43 | CN ---
PATIENT NAME:DWIGHT VILLEGAS MEDICAL RECORD: [id number] : 84 LOCATION:[facility].2308 ADMIT DATE: 01/31/17 ACCOUNT: [id number] CONSULTING PHYSICIAN: PATEL MORGAN MD REFERRING PHYSICIAN: WATSON JOSÉ MD DATE OF CONSULTATION: 02/11/2017 Pulmonary Consultation CONSULT REQUESTING PHYSICIAN: Watson José MD REASON FOR CONSULTATION: Vent management. HISTORY OF PRESENT ILLNESS: Ms. Villegas is a 36-year-old -[place] female with a history of seizures, neurosarcoidosis. The patient was admitted a few days ago, collapsed on the bus. She was not on a seizure medication and prednisone. Yesterday, the patient had a seizure and the patient collapsed and the patient was intubated and brought into the ICU. The history was taken by reviewing the patient's note and talking to the nursing staff. REVIEW OF SYSTEMS: Mainly in the history of present illness. PAST MEDICAL HISTORY: 1. Possible neurosarcoidosis. 2. History of septic shock. 3. History of respiratory failure and intubation in the past. 4. Multiple psych issues. 5. History of erosive duodenitis and esophagitis. PAST SURGICAL HISTORY: The details are not known. ALLERGIES: SHE IS ALLERGIC TO ASPIRIN, ALPRAZOLAM, AND IBUPROFEN. MEDICATIONS: All medications on [employer] was reviewed. PERSONAL AND SOCIAL HISTORY: The details are not obtainable. FAMILY HISTORY: Significant for cardiovascular disease and diabetes. PHYSICAL EXAMINATION: GENERAL: Now, the patient is orally intubated and sedated. VITAL SIGNS: The blood pressure is 85-97/57, pulse is 107, respiration is 23, temperature is 100.8. SpO2 is 99% on assist control mechanical ventilation with 60% oxygen. HEENT: Conjunctivae pink, sclerae nonicteric. NECK: Supple, no JVD. CHEST: There is no wheeze. There are crackles at the left base. HEART: Rhythm regular, normal sound, no murmur. ABDOMEN: Soft. Bowel sounds present. No hepatosplenomegaly. RECTAL: Deferred. EXTREMITIES: No cyanosis, no clubbing, no pedal edema. SKIN: Warm, normal turgor. CENTRAL NERVOUS SYSTEM: The patient is orally intubated and sedated. There is no obvious cranial abnormality. CONSULT REPORT [id number] DWIGHT VILLEGAS CHEST RADIOGRAPH: There is infiltrate in the left lower lobe. OTHER LABORATORY DATA: CBC: WBC is 2.6, hemoglobin is 12.8, hematocrit 39.2, and platelet count 122. Chemistry: Sodium 147, potassium is 4.3, BUN is 17, creatinine 1.4, glucose 110. LABORATORY DATA: ABG: The pH was 7.34, pCO2 was 37.9, pO2 was 46, bicarbonate of 20.5. The lactic acid on the ABG was 2.35. IMPRESSION: 1. Acute hypoxic respiratory failure. 2. Seizure. 3. Pneumonia, left lower lobe. 4. Most likely consider hospital-acquired pneumonia, possible aspiration during the seizure. 5. Leukopenia. 6. Hypotension, possible sepsis. 7. Neurosarcoidosis. 8. Multiple psych issues. RECOMMENDATION: 1. Continue methylprednisolone IV. 2. Continue vancomycin and Zosyn. 3. Check sputum culture. 4. Blood culture. 5. IV fluid boluses for hypotension. We will follow the vent bundle protocol, DVT prophylaxis, GI bleed prophylaxis. Dr. Joés thank you for involving me in the care of Ms. Villegas. The critical care time is 50 minutes. TRANSINT:[id number] Voice Confirmation ID: [id number] DOCUMENT ID: [id number] PATEL MORGAN MD at 1143 CC: WATSON JOSÉ MD [id number] DICTATION DATE: 02/11/17 1101 GUEST ROOM ATTENDANT: 02/11/17 1319 ADM IN [facility] [address] [place] [address]
--- NOTE | 2017-02-23 13:15 | NUR ---
BEGAN INFUSING 1ST UNIT OF PRBC'S, VSS, WILL CONTINUE TO MONITOR PT.
--- NOTE | 2017-02-23 15:05 | NUR ---
PHYSICAL THERAPY IN WITH PT, TRANSFERRED PT FROM CHAIR TO BED, PT TOLERATED WELL. WILL CONTINUE TO MONITOR PT.
--- NOTE | 2017-02-23 17:45 | NUR ---
PT TRANSFERRED VIA WHEELCHAIR TO MRI
--- NOTE | 2017-02-23 18:11 | NUR ---
PT REPORT CALLED TO JASMIN RIVAS, PT TO TRANSFER TO ROOM 2219 VIA WHEELCHAIR.
--- NOTE | 2017-02-23 18:40 | NUR ---
RECEIVED TO ROOM 2219 VIA BED FROM ICU VIA MRI. A/O X3. NO C/O AT THIS TIME. SKIN IS INTACT WITHOUT REDNESS.
--- NOTE | 2017-02-23 20:00 | NUR ---
ASSESSMENT PER FLOWSHEET. IV PATENT RT TLSC OF D5W AT 75CC'S/HR. SITE CLEAR. DUARTE TO BEDSIDE DRAINAGE WITH YELLOW URINE. 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 BILATERAL SCD'S ON. MALE FRIEND AT BEDSIDE. PT DOES HAVE PERIODS OF CONFUSION.
--- NOTE | 2017-02-23 21:30 | NUR ---
MEDS GIVEN PER MAR. ZDVM=[id number]. NO COVERAGE NEEDED.
--- NOTE | 2017-02-23 23:00 | NUR ---
PT HUNGRY APPLESAUCE AND ORANGE SHERBET GIVEN TO PATIENT.
--- NOTE | 2017-02-24 00:44 | NUR ---
REMAINS AWAKE WATCHING TV.NO DISTRESS. SR UP X2 CALL LIGHT WITHIN REACH.
--- NOTE | 2017-02-24 02:15 | NUR ---
EYES CLOSED RESPIRATIONS WITH EASE AND UNLABORED.
[2017-02-24 04:00] VITALS: BP 91/47
[2017-02-24 07:22] LABS: BASOPHILS 0.2 % (0-2); EOSINOPHILS 0.1 % (0-7); HEMATOCRIT 29.4 % (36.0-48.0); IMMATURE GRANULOCYTES 8.4 % (0-5); MCH 28.4 pg (26.0-34.0); MCHC 32.3 g/dL (31.0-37.0); MEAN PLATELET VOLUME 13.5 fL (7.4-10.4); MONOCYTES 6.2 % (2-11); NEUTROPHILS 61.1 % (40-80); PLATELET COUNT 356 10x3/uL (130-400); WBC 13.7 10x3/uL (4.8-10.8)
[2017-02-24 07:27] LABS: HEMOGLOBIN 9.5 g/dL (12-16); RBC 3.34 10x6/uL (4.00-5.40)
--- NOTE | 2017-02-24 07:31 | NUR ---
REPORT RECEIVED FROM DEBURRING MACHINE OPERATOR NURSE. CALL LIGHT IN REACH.
[2017-02-24 07:43] LABS: ALBUMIN 2.4 g/dL (3.4-5.0); ANION GAP 17.4 mmol/L (8-16); BILIRUBIN - TOTAL 0.1 mg/dL (0.2-1.3); CALCIUM 8.1 mg/dL (8.5-10.1); CARBON DIOXIDE 23.8 mmol/L (21.0-32.0); CREATININE - SERUM 1.4 mg/dL (0.6-1.3); POTASSIUM - SERUM 4.2 mmol/L (3.5-5.1); PROTEIN - SERUM 5.8 g/dL (6.4-8.2)
[2017-02-24 08:09] VITALS: BP 111/73
--- NOTE | 2017-02-24 09:50 | NUR ---
ASSESSMENT COMPLETED. REFUSES SCDs. CALL LIGHT IN REACH. WILL CONTINUE WITH PLAN OF CARE.
--- NOTE | 2017-02-24 11:57 | NUR ---
AM MEDS ADMINISTERED. BLOOD SUGAR 121. UNUSED PORTS WERE FLUSHED UNTIL THEY STARTED TO WORK. THEY ARE NOW DRAWING BLOOD AGAIN. BED ALARM PLACED ON.
--- NOTE | 2017-02-24 12:01 | EC ---
PATIENT:DWIGHT FRANCO DATE OF SERVICE: 01/31/17 SEX: F MEDICAL RECORD: [id number] DATE OF : [birth year] LOCATION:D.[facility] [place] AGE OF PATIENT: 36 ADMISSION DATE: 01/31/17 REFERRING PHYSICIAN: INTERPRETING PHYSICIAN: KATT KELLY MD ECHOCARDIOGRAM REPORT ECHO CHARGES 4 ECHO COMPLETE CLINICAL DIAGNOSIS: SARCOID ECHOCARDIOGRAPHIC MEASUREMENTS (adult normal given) AC root (d.<3.7cm) 2.3 cm LV Septum d (<1.2 cm> 1.2 cm Valve Excursion 1.2 cm LV Septum (systole) 1.5 cm Left Atria (s.<4.0cm> 3.5 cm LVPW d(<1.2cm) 1.6 cm RV (d.<2.3cm) 3.9 cm LVPW (sytole) 1.8 cm LV diastole(<5.6CM) 4.3 cm MV E-F(>70mm/sec) cm LV systole 2.7 cm LVOT Diameter 1.7 cm MV exc.(>10mm) 1.6 cm Est.ejection fraction (50-75%) % Pericardial Effusion N DOPPLER: LVIT cm/sec A 47.0 cm/sec E 70.0 cm/sec LA cm/sec RVSP 34 mmHg LVOT 145 cm/sec AOP1/2T m/s Asc. Ao 160 cm/sec RVOT 75 cm/sec RA cm/sec PA 132 cm/sec AV Gradient Peak 8.38 mmHg AV Mean 5.05 mmHg AV Area 2.5 cm MV Gradient Peak 2.99 mmHg MV Mean 1.21 mmHg MV Area cm COMMENTS: Pig Breeder: 2 DIONICIO SIU Intermission Coordinator: 3 Dr. Millan TAPE# PACS DATE OF SERVICE: 02/19/2017 Adequate 2D echo, color flow and spectral Doppler, and mode. Borderline LVH. LV internal dimension is normal. Wall motion is normal. EF is greater than or equal to 55%. Aortic valve is tricuspid. No stenosis by Doppler interrogation. The left atrium is normal. Mitral valve shows no prolapse. Trace MR. Right-sided chamber is grossly normal. Trace TR. TRANSINT:[id number] Voice Confirmation ID: [id number] DOCUMENT ID: [id number] ECHOCARDIOGRAM REPORT [id number] DWIGHT FRANCO KATT KELLY MD at 1201 CC: [id number] DICTATION DATE: 02/19/17 143 DYNAMOMETER MECHANIC: 02/19/17 1454 ADM IN [facility] [address] [place] [address]
--- NOTE | 2017-02-24 12:01 | CN ---
PATIENT NAME:DWIGHT VILLEGAS MEDICAL RECORD: [id number] : 84 LOCATION:D.[facility] [place] ADMIT DATE: 01/31/17 ACCOUNT: [id number] CONSULTING PHYSICIAN: KATT KELLY MD REFERRING PHYSICIAN: JONAH JOSÉ MD DATE OF CONSULTATION: 02/19/2017 HISTORY OF PRESENT ILLNESS: Dwight Villegas is a 36-year-old lady with a history of neurosarcoid, had a syncopal episode at the bus stop. She has a history of intermittent noncompliance, has been followed, carries a diagnosis of bipolar schizoaffective disorder, who has somewhat transient lifestyle. She was having intermittent bradycardia, this is sinus, actually it is correlated to episodes of hypothermia, one episode of hypoglycemia. We are asked to see her concerning cardiovascular status. PAST MEDICAL HISTORY: 1. Includes a history of schizoaffective disorder. 2. Neurosarcoidosis. 3. Hypertension. 4. Seizure disorder. 5. Diabetes. ALLERGIES: ALPRAZOLAM, LITHIUM, ASPIRIN, IBUPROFEN. MEDICATIONS: Per pharmacy takin. Metformin 1 gram b.i.d. 2. Synthroid 100 mcg daily. 3. Protonix 40 every day 4. Trazodone 150 q.h.s. 5. Risperdal 0.5 b.i.d. 6. Keppra 1 gram b.i.d. 7. Restoril 15 mg q.h.s. 8. Neurontin 300 mg t.i.d. 9. Cymbalta 60 every day. 10. Phenytoin 200 b.i.d. 11. BuSpar 5 q.6 hours p.r.n. 12. Metoprolol 25 b.i.d. 13. Vfend 100 t.i.d. 14. Benadryl p.r.n. REVIEW OF SYSTEMS: The patient reports easy bruising but reports no swollen glands. The patient reports no fever, no night sweats, no significant weight gain, no significant weight loss. No significant exercise tolerance. The patient reports no dry eyes, no irritation, no vision change. Patient reports no difficulty hearing and no ear pain. Patient reports no frequent nose bleeds or nose and sinus problems. Patient reports on arm pain on exertion. No shortness of breath while lying down. No history of heart murmur. Patient reports no cough, no wheezing or coughing up blood. Patient reports no abdominal pain, no vomiting. Normal appetite. No diarrhea and not vomiting blood. No nausea and no constipation. Patient reports no incontinence. No difficulty urinating. No hematuria. No increased frequency. Patient reports no muscle aches. No weakness, no arthralgias, no back pain. No swelling of the extremities. Patient reports no abnormal mole, no jaundice, no rashes. Reports no loss of consciousness. No weakness and no numbness. No seizures, dizziness, or headaches. The patient reports no depression, no sleep disturbance, feeling CONSULT REPORT [id number] DWIGHT VILLEGAS safe in a relationship and no alcohol abuse. Patient reports on fatigue. Reports no runny nose or sinus pressure. No itching, no hives, and no frequent sneezing. PHYSICAL EXAMINATION: GENERAL: Pleasant female in no acute distress, conversant. VITAL SIGNS: Pulse currently 90, blood pressure 101/71. HEENT: Normocephalic, atraumatic. NECK: No bruits noted. HEART: Regular. LUNGS: Weldon clear. EXTREMITIES: Pulses 2+ with no edema. IMPRESSION: Intermittent sinus bradycardia. This do appears of hypoglycemia as well as hypothermia, shows a normal QRS duration, normal VA interval. Would be somewhat uncommon for cardiac sarcoid involvement at this point. I agree with current medications. We will add ProAmatine to see if this helps with systolic pressures to help wean IV pressors. Thank you for the consultation. Discussed with Dr. Arce in detail. TRANSINT:[id number] Voice Confirmation ID: [id number] DOCUMENT ID: [id number] KATT KELLY MD at 1201 CC: [id number] DICTATION DATE: 02/19/17 1300 HYDRAULIC AND PLUMBING INSTALLER: 02/19/17 1332 ADM IN [facility] [address] [place] [address]
--- NOTE | 2017-02-24 12:09 | NUR ---
AM MEDS ADMINISTERED. BLOOD SUGAR 121. UNUSED PORTS WERE FLUSHED UNTIL THEY STARTED TO WORK. THEY ARE NOW DRAWING BLOOD AGAIN. BED ALARM PLACED ON.
--- NOTE | 2017-02-24 12:40 | NUR ---
PATIENT IN BED WITH IV DISCONNECTED. CLEANED WITH ALCOHOL AND FLUSHED AT THIS TIME. RECONNECTED TO IVF. NO COMPLAINTS OR SIGNS OF DISTRESS AT THIS TIME. DENIES NEEDS. CALL LIGHT WITHIN REACH.
[2017-02-24 12:43] VITALS: BP 126/68
--- NOTE | 2017-02-24 13:32 | NUR ---
PATSY PO. BREATHING TREATMENT TURNED OFF.
--- NOTE | 2017-02-24 15:40 | NUR ---
NO NEEDS VOICED AT THIS TIME. CALL LIGHT IN REACH.
[2017-02-24 16:20] VITALS: BP 135/82
--- NOTE | 2017-02-24 17:00 | NUR ---
WANTS ME TO COME BACK FOR BLOOD SUGAR AND EVENING MEDS. WILL COME BACK IN ABOUT AN HOUR.
--- NOTE | 2017-02-24 19:44 | NUR ---
NO CHANGES IN INITIAL ASSESSMENT COMPLETED. REFUSES SCDs. CALL LIGHT IN REACH. BED ALARM ON. WILL CONTINUE WITH PLAN OF CARE.
[2017-02-24 20:00] VITALS: BP 97/62
--- NOTE | 2017-02-24 20:00 | NUR ---
ASSESSMENT PER FLOWSHEET. IV PATENT RT TLSC OF D5W AT 75CC'S/HR SITE CLEAR. DUARTE TO BS DRAINAGE WITH CLEAR YELLOW URINE. MALE FRIEND AT BEDSIDE. USHA BED ALARM MAT ON SR UP X2 CALL LIGHT WITHIN REACH PT IN DROPLET ISOLATION.
--- NOTE | 2017-02-24 22:00 | NUR ---
MEDS GIVEN PER JUL. TQOI=622. HUMALOG INSULIN 2 UNITS GIVEN SUBC PER S/S TO RT ARM.
--- NOTE | 2017-02-25 02:00 | NUR ---
EYES CLOSED RESPIRATIONS WITH EASE AND UNLABORED.
[2017-02-25 05:06] LABS: BASOPHILS 0.3 % (0-2); EOSINOPHILS 0.1 % (0-7); HEMATOCRIT 30.8 % (36.0-48.0); HEMOGLOBIN 10.3 g/dL (12-16); IMMATURE GRANULOCYTES 7.6 % (0-5); LYMPHOCYTES 20.7 % (15-50); MCH 29.5 pg (26.0-34.0); MCHC 33.4 g/dL (31.0-37.0); MCV 88.3 fL (80.0-100.0); MEAN PLATELET VOLUME 12.8 fL (7.4-10.4); NEUTROPHILS 65.3 % (40-80); PLATELET COUNT 402 10x3/uL (130-400); RBC 3.49 10x6/uL (4.00-5.40); RDW 16.2 % (11.5-14.5); WBC 11.9 10x3/uL (4.8-10.8)
[2017-02-25 05:39] LABS: ALBUMIN 2.5 g/dL (3.4-5.0); ANION GAP 13.7 mmol/L (8-16); BILIRUBIN - TOTAL 0.1 mg/dL (0.2-1.3); CALCIUM 8.6 mg/dL (8.5-10.1); CARBON DIOXIDE 27.2 mmol/L (21.0-32.0); CREATININE - SERUM 1.2 mg/dL (0.6-1.3); POTASSIUM - SERUM 3.9 mmol/L (3.5-5.1); PROTEIN - SERUM 6.6 g/dL (6.4-8.2)
--- NOTE | 2017-02-25 07:15 | NUR ---
REPORT RECEIVED FROM SLASHER TENDER NURSE. CALL LIGHT IN REACH.
[2017-02-25 08:34] VITALS: BP 90/52
--- NOTE | 2017-02-25 09:40 | NUR ---
ASSESSMENT COMPLETED. CALL LIGHT IN REACH. BED ALARM ON. WILL CONTINUE WITH PLAN OF CARE.
--- NOTE | 2017-02-25 11:51 | NUR ---
AM MEDS ADMINISTERED. CALL LIGHT IN REACH.
[2017-02-25 12:16] VITALS: BP 91/64
--- NOTE | 2017-02-25 13:46 | NUR ---
RT IN ROOM TO DO BREATHING TREATMENT.
--- NOTE | 2017-02-25 15:20 | NUR ---
RESTING WITH EYES CLOSED. RESP EVEN AND UNLABORED. CALL LIGHT IN REACH.
--- NOTE | 2017-02-25 17:45 | NUR ---
FSBS 231. HUMALOG 4 UNITS SUBQ TO LEFT ARM.
[2017-02-25 17:46] VITALS: BP 106/61
--- NOTE | 2017-02-25 18:45 | NUR ---
NO CHANGES IN INITIAL ASSESSMENT. CALL LIGHT IN REACH. BED ALARM ON. WILL CONTINUE WITH PLAN OF CARE.
[2017-02-25 19:30] VITALS: BP 94/57
--- NOTE | 2017-02-25 20:00 | NUR ---
ASSESMENT PER FLOWSHEET. EYES CLOSED RESPIRATIONS WITH EASE AND UNLABORED. GRITS TEETH WHILE SLEEPING. IV PATENT RT TLSC WITH D5W AT 75CC'S/HR. USHA MAT ON AND ACTIVATED. DUARTE TO BSD WITH CLEAR YELLOW URINE NOTED. PT IN DROPLET ISOLATION.
--- NOTE | 2017-02-25 21:30 | NUR ---
MEDS GIVEN PER MAR. HKRM=123. HUMALOG INSULIN 2 UNITS GIVEN SUBC PER S/S.
[2017-02-25 23:30] VITALS: BP 101/40
--- NOTE | 2017-02-26 | NUR ---
INC STOOL IN BED CLEANED AND LINENS CHANGED.
--- NOTE | 2017-02-26 02:30 | NUR ---
EYES CLOSED RESPIRATIONS WITH EASE AND UNLABORED.
[2017-02-26 04:00] VITALS: BP 106/64
--- NOTE | 2017-02-26 04:00 | NUR ---
INC STOOL IN BED BED BATH AND LINENS CHANGED.
--- NOTE | 2017-02-26 04:59 | NUR ---
RESTING QUIETLY NO CHANGES IN ASSESSMENT.
[2017-02-26 06:23] LABS: BASOPHILS 0.4 % (0-2); EOSINOPHILS 0.2 % (0-7); HEMATOCRIT 31.7 % (36.0-48.0); HEMOGLOBIN 10.3 g/dL (12-16); IMMATURE GRANULOCYTES 8.9 % (0-5); LYMPHOCYTES 23.8 % (15-50); MCH 28.8 pg (26.0-34.0); MCHC 32.5 g/dL (31.0-37.0); MCV 88.5 fL (80.0-100.0); MEAN PLATELET VOLUME 12.9 fL (7.4-10.4); NEUTROPHILS 59.7 % (40-80); PLATELET COUNT 422 10x3/uL (130-400); RBC 3.58 10x6/uL (4.00-5.40); RDW 16.1 % (11.5-14.5); WBC 11.2 10x3/uL (4.8-10.8)
--- NOTE | 2017-02-26 06:28 | NUR ---
MEDS GIVEN PER MAR. GYBN=[id number]. NO COVERAGE NEEDED.
[2017-02-26 07:03] LABS: ALBUMIN 2.6 g/dL (3.4-5.0); ANION GAP 14.2 mmol/L (8-16); CALCIUM 8.8 mg/dL (8.5-10.1); CARBON DIOXIDE 29.2 mmol/L (21.0-32.0); CREATININE - SERUM 1.2 mg/dL (0.6-1.3); POTASSIUM - SERUM 4.4 mmol/L (3.5-5.1); PROTEIN - SERUM 6.4 g/dL (6.4-8.2)
[2017-02-26 07:07] LABS: BILIRUBIN - TOTAL 0.08 mg/dL (0.2-1.3)
--- NOTE | 2017-02-26 07:30 | NUR ---
RECIEVED PT DURING WALKING ROUNDS. PT RESTING IN BED WITH COMPLAINTS OF PAIN OF A 6 ON A SCALE OF 1-10. MEDICATION TO BE GIVEN PER ORDER. ASSESSMENT DONE PER FLOWSHEET. BED IN LOW POSITION AND CALL LIGHT WITHIN REACH. WILL CONTINUE TO MONITOR.
[2017-02-26 08:31] VITALS: BP 102/57
[2017-02-26] MEDS ORDERED: VIBRAMYCIN 100100 MG PO (11:59)
[2017-02-26] MEDS ORDERED: MIDODRINE HCL5 MG PO (11:59)
[2017-02-26] MEDS ORDERED: PREDNISONE20 MG PO (12:04)
[2017-02-26 13:59] VITALS: BP 110/54
[2017-02-26 16:01] VITALS: BP 92/60
--- NOTE | 2017-02-26 16:41 | NUR ---
YANCY RECEIVED ORDERS FOR DISCHARGE CALL MADE TO APS REQUESTED BY DR GAMEZ PATIENT'S FOLLOW UP APPOINTMENT WAS MADE TO SEE ERIN MENESES ON Feb AT 3:20. YANCY SET UP SCAT TRANSPORATION TO BE PICKED UP AT HER MOTHERS HOUSE AND TAKEN TO DR BEDOLLA # IS [id number] AFTER READING PT NOTES PATIENT HAS ONLY WALKED 4 FT. ATTEMPTED TO GET A HOLD OF PT AND THEY HAVE ALREADY LEFT FOR THE DAY. DR JOSÉ NOTIFED AND HE STATED THAT PT WOULD NEED TO WALK PATIENT PRIOR TO DISCHARGE. I ALSO CALLED ALFREDO WITH APS IN [facility], SHE STATED THAT DWIGHT WAS ON HER CASE LOAD AND WOULD LIKE TO BE NOTIFIED WHEN SHE IS DISCHARGED AND SHE WILL FOLLOW THE PATIENT HOME. ROD SET UP WITH PT, NURSING, OT, AND CERAMIC SPRAYER YANCY SPOKE TO ABEBA, YANCY WILL CONTINUE TO FOLLOW AND ASSIST WITH DISCHARGE PLANNING NEEDS
--- NOTE | 2017-02-26 19:30 | NUR ---
DUARTE REMOVED AT THIS TIME PER VERBAL ORDER FROM .
[2017-02-26 20:00] VITALS: BP 108/72
--- NOTE | 2017-02-26 20:00 | NUR ---
ASSESSMENT PER FLOWSHEET. USHA BED ALARM ON SR UP X3 CALL LIGHT WITHIN REACH. PT IN DROPLET ISOLATION. IV PATENT RT TLSC WITH D5W AT 35CC'S/HR. SITE CLEAR. PATIENT REMAINS CONFUSED TO TIME AND PLACE. SPEECH CLEAR AT TIMES AND GARBLED AT TIMES.
--- NOTE | 2017-02-26 21:00 | NUR ---
MEDS GIVEN PER JUL. SPTB=050. HUMALOG INSULIN 2 UNITS SUBC GIVEN TO RT ARM PER S/S. PT WANTING TO USE BATHROOM. UP WITH MODERATE ASSIST OF MALE COAL DELIVERER TO BATHROOM. BALANCE AND GAIT UNSTEADY. VOIDED ON COMMODE. ASSISTED BACK TO BED PT HAS BALANCE AND UNSTEADY GAIT PROBLEMS.RESET USHA BED ALARM MAT.
--- NOTE | 2017-02-27 00:30 | NUR ---
AWAKE PATIENT GOT OUT OF HER BED CONFUSED STUMBLING AROUND IN ROOM LOOKING FOR BATHROOM ASSISTED TO BR WITH MODERATE ASSIST OF 2 PEOPLE BALANCE AND GAIT UNSTEADY. VOIDED AND HAD A SMALL STOOL.ASSISTED BACK TO BED WITH MAXIMUM ASSIST.
--- NOTE | 2017-02-27 01:45 | NUR ---
AWAKE WANTING TO GO TO BATHROOM. ASSISTED BY MALE REGULATORY AGENCY DIRECTOR WITH MODERATE ASSIST TO BATHROOM. PATIENT HAS UNSTEADY GAIT AND BALANCE. VOIDED ON COMMODE. ASSISTED BACK TO BED SR UP X3 CALL LIGHT WITHIN REACH BED ALARM ACTIVATED.
--- NOTE | 2017-02-27 03:43 | NUR ---
EYES CLOSED RESPIRATIONS WITH EASE AND UNLABORED.
[2017-02-27 04:00] VITALS: BP 94/64
[2017-02-27 05:50] LABS: BASOPHILS 0.4 % (0-2); EOSINOPHILS 0.1 % (0-7); HEMATOCRIT 33.1 % (36.0-48.0); HEMOGLOBIN 10.5 g/dL (12-16); IMMATURE GRANULOCYTES 4.2 % (0-5); LYMPHOCYTES 16.8 % (15-50); MCH 28.6 pg (26.0-34.0); MCHC 31.7 g/dL (31.0-37.0); MCV 90.2 fL (80.0-100.0); MEAN PLATELET VOLUME 12.6 fL (7.4-10.4); NEUTROPHILS 69.5 % (40-80); PLATELET COUNT 416 10x3/uL (130-400); RBC 3.67 10x6/uL (4.00-5.40); RDW 16.5 % (11.5-14.5)
--- NOTE | 2017-02-27 06:00 | NUR ---
MEDS GIVEN PER MAR. YOJA=[id number]. NO COVERAGE. UP TO BR VOIDS WELL.
[2017-02-27 06:14] LABS: WBC 14.9 10x3/uL (4.8-10.8)
[2017-02-27 06:16] LABS: ALBUMIN 2.5 g/dL (3.4-5.0); ANION GAP 12.3 mmol/L (8-16); BILIRUBIN - TOTAL 0.22 mg/dL (0.2-1.3); CALCIUM 9.2 mg/dL (8.5-10.1); CARBON DIOXIDE 30.8 mmol/L (21.0-32.0); CREATININE - SERUM 1.5 mg/dL (0.6-1.3); POTASSIUM - SERUM 4.1 mmol/L (3.5-5.1); PROTEIN - SERUM 7.2 g/dL (6.4-8.2)
[2017-02-27 09:12] VITALS: BP 91/56
--- NOTE | 2017-02-27 09:37 | NUR ---
AWAKE AND ALERT THIS MORNING. SAM NEGRETE IN ROOM ASSISTIG PT TO AND FROM BATHROOM. REMAINS IN DROPLET ISOLATION. HOPEFUL FOR D/C HOME TODAY. RESPIRATIONS EVEN AND NON LABORED. CALL LIGHT IN REACH.
--- NOTE | 2017-02-27 13:40 | NUR ---
Patient walked 250 feet with PT today with a walker. PT recommends the patient has a walker at home. Walker ordered and will be delivered to hospital before discharge from healthcare medical information set up with marge AREVALO.
--- NOTE | 2017-02-27 14:00 | NUR ---
RECORDS FAXED TO [facility], ALFREDO THE BENEFITS CLERK AND ROSSI AT [facility].
--- NOTE | 2017-02-27 15:00 | NUR ---
RIGHT SUBCLAVIAN CENTRAL LINE D/C WITH CATH TIP INTACT. PRESSURE DRESSING APPLIED TO SITE.
--- NOTE | 2017-02-27 17:58 | NUR ---
DISCHARGE PAPERS AND INSTRUCTIONS GIVEN TO PT AND SOL, QUESTIONS ANSWERED, CENTRAL LINE PULLED BY MAXIMO RIVAS, DISCHARGED PER WC WITH BELONGINGS (WHEELCHAIR)
== END 2017-02-27 17:59 | disposition home health service (06) | DRG 207 ==
LOC: D.ER 11:06 → D.ICU 01-31 05:46 → OBSVTIME 01-31 05:46 → D.MS 01-31 05:47 → D.CVICU 01-31 05:47 → D.MS 01-31 05:47 → D.CVICU 01-31 05:47 → D.ICU 01-31 05:47 → D.CVICU 01-31 11:10 → D.ICU 01-31 11:10 → D.ER 01-31 11:10 → OBSVTIME 01-31 11:11 → D.ICU 01-31 15:00 → D.CVICU 01-31 15:00 → D.MS 02-04 11:08 → D.SDCHOLD 02-04 16:20 → D.MS 02-04 16:22 → D.ICU 02-10 17:18 → D.MS 02-23 18:13
PROVIDERS: Family Medicine; Internal Medicine; Internal Medicine Pulmonary Disease; Nurse Practitioner Family; ADMIT Family Medicine
PROC: 5A1955Z Respiratory Ventilation, Greater than 96 Consecutive Hours (ICD-10-PCS; principal; 2017-02-10)
PROC: 0BH17EZ Insertion of Endotracheal Airway into Trachea, Via Natural or Artificial Opening (ICD-10-PCS; 2017-02-10)
DX: D86.89 Sarcoidosis of other sites (principal); J96.01 Acute respiratory failure with hypoxia; J15.212 Pneumonia due to Methicillin resistant Staphylococcus aureus; R45.851 Suicidal ideations; E87.1 Hypo-osmolality and hyponatremia; E87.0 Hyperosmolality and hypernatremia; J98.11 Atelectasis; D50.9 Iron deficiency anemia, unspecified; F25.9 Schizoaffective disorder, unspecified; G40.909 Epilepsy, unspecified, not intractable, without status epilepticus; E11.9 Type 2 diabetes mellitus without complications; E03.9 Hypothyroidism, unspecified; G89.4 Chronic pain syndrome; F41.9 Anxiety disorder, unspecified; Z91.14 Patient's other noncompliance with medication regimen; Z91.19 Patient's noncompliance with other medical treatment and regimen; J44.9 Chronic obstructive pulmonary disease, unspecified; E78.00 Pure hypercholesterolemia, unspecified; E53.9 Vitamin B deficiency, unspecified; E87.6 Hypokalemia

== ENCOUNTER 2017-03-31 11:44 | Emergency (ER) | payer MEDICARE ==
[2017-02-02 10:10] VITALS: BMI 34.0
[~2017-03-31 11:44] MED LIST changes: +CYMBALTA60 MG PO; +DESERYL100 MG PO; +MIDODRINE HCL5 MG PO; +RISPERDAL0.5 MG PO; +VFEND50 MG PO; +VIBRAMYCIN 100100 MG PO
== END 2017-03-31 15:41 | disposition home or self-care (01) ==
LOC: D.ER 11:44
DX: M79.1 Myalgia (principal); C47.9 Malignant neoplasm of peripheral nerves and autonomic nervous system, unspecified; G40.909 Epilepsy, unspecified, not intractable, without status epilepticus; E11.9 Type 2 diabetes mellitus without complications; F17.200 Nicotine dependence, unspecified, uncomplicated

== ENCOUNTER 2017-05-13 13:03 | Emergency (ER) | payer MEDICARE ==
[2017-02-02 10:10] VITALS: BMI 34.0
== END 2017-05-13 15:43 | disposition home or self-care (01) ==
LOC: D.ER 13:03
DX: D86.9 Sarcoidosis, unspecified (principal); M79.1 Myalgia; Z79.52 Long term (current) use of systemic steroids; E11.9 Type 2 diabetes mellitus without complications; G40.909 Epilepsy, unspecified, not intractable, without status epilepticus; E03.9 Hypothyroidism, unspecified

== ENCOUNTER 2017-06-27 15:14 | Emergency (ER) | payer MEDICARE ==
[2017-02-02 10:10] VITALS: BMI 34.0
== END 2017-06-27 18:10 | disposition home or self-care (01) ==
LOC: D.ER 15:14
DX: S80.11XA Contusion of right lower leg, initial encounter (principal); Y04.2XXA Assault by strike against or bumped into by another person, initial encounter; Y93.89 Activity, other specified; Y92.019 Unspecified place in single-family (private) house as the place of occurrence of the external cause; S20.219A Contusion of unspecified front wall of thorax, initial encounter; R07.9 Chest pain, unspecified; E03.9 Hypothyroidism, unspecified; E11.9 Type 2 diabetes mellitus without complications; G40.909 Epilepsy, unspecified, not intractable, without status epilepticus; E22.2 Syndrome of inappropriate secretion of antidiuretic hormone; F17.200 Nicotine dependence, unspecified, uncomplicated